=== PATIENT | male | born 1980 | race Caucasian/White ===

== ENCOUNTER 2023-10-04 11:49 | Outpatient (AMB) | payer OTHER, SELFPAY ==
--- NOTE | 2023-10-04 13:16 | MHC.OFFWIV ---
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 Patient had cough congestion x2 weeks which had migrated upwards now has purulent nasal discharge sinus pressure and facial pain. Review of Systems ENT Reports nasal congestion and Reports nasal discharge Physical Exam Vital Signs: Last Vital Signs Temp 98.2 F 10/04/23 13:19 Pulse 70 10/04/23 13:19 BP 120/70 10/04/23 13:19 Pulse Ox 98 10/04/23 13:19 Oxygen Delivery Method Room Air 10/04/23 13:19 BMI result Body Mass Index 24.6 Const General: cooperative, healthy appearing, no acute distress and alert Orientation/consciousness: patient oriented x3 Limitations: no limitations HEENT Other: TTP over the front left maxillary sinus Head: Yes normal to inspection Ears: hearing grossly normal bilaterally General nose exam: Normal external nose present Resp Effort & Inspection: normal respiratory effort and able to speak in complete sentences Cardio Rate: regular rate Skin General skin exam: no rashes or lesions noted Neuro General: patient oriented x3 Extrem General: Yes normal to inspection Assessment & Plan Assessment & Plan (1) Sinus infection: Code(s): J32.9 - Chronic sinusitis, unspecified Qualifiers: Sinusitis location: maxillary Chronicity: acute Recurrence: non-recurrent Qualified Code(s): J01.00 - Acute maxillary sinusitis, unspecified Plan: Signs and symptoms consistent with sinus infection will prescribe Augmentin for 10 days. Discharge instructions, follow up and treatment are discussed with patient in my usual fashion. Alternatives in treatment are also discussed. The patient will return for worsening symptoms or as needed. Advised that any labs/imaging ordered will be followed up on and contact made if further treatment needed. Counseled that patient's condition may require further evaluation and/or treatment. Symptoms of concern for worsening disorder discussed in detail in my customary manner. Patient does verbalize understanding of the plan, there are no apparent barriers to communication. The patient is given the opportunity to ask questions and have them answered to his/her satisfaction Medications: New amoxicillin-pot clavulanate 875-125 mg 1 tab PO BID 20 tabs 0RF 10 days Coding Level of Care Code New Pt Level 3 (83581) Diagnoses Acute non-recurrent maxillary sinusitis J01.00 Sinusitis location: maxillary Chronicity: acute Recurrence: non-recurrent
[2023-10-04 13:19] VITALS: BP 120/70; PULSE 70; TEMP 36.8; O2SAT 98; BMI 24.6
== END 2023-10-04 13:43 | disposition home or self-care (01) ==
PROVIDERS: PCP Internal Medicine; Visit Provider Physician Assistant
DX: J01.00 Acute maxillary sinusitis, unspecified (principal)
CPT/HCPCS: 99203

== ENCOUNTER 2023-11-20 12:24 | Outpatient (AMB) | payer OTHER, SELFPAY ==
[2023-11-20 12:35] VITALS: BP 124/90; PULSE 88; O2SAT 100; BMI 24.6
--- NOTE | 2023-11-20 12:35 | MHC.PC.OV ---
Vital Signs 11/20/23 12:35 Height 6 ft 6 in Weight 213 lb BMI 24.6 BP 124/90 H Blood Pressure Location Rt brachial Position Sitting Pulse 88 Pulse Source Pulse Oximeter Pulse Oximetry (%) 100 Oxygen Delivery Method Room Air Intake Visit Reasons: New patient PE Intake Note: Pt is here today as a New Patient/PE Allergies No Known Allergies Allergy (Unverified 11/20/23 12:58) Medication List - Last Reconciled 11/20/23 by KASSANDRA Gilbert No Known Home Meds Tobacco use date assessed: 11/20/23 Dental Screening Dental Screen Date: 11/20/23 Did you have a dental visit in the last 12 months?: Yes Did you have a dental problem in the last 6 months where you did not have access to dental care?: Yes Was dental information given to patient?: Patient has dentist HPI HPI Comments History of Present Illness Details Patient is a 42-year-old male here to establish care and have his physical exam. He has paperwork to be filled out so that he can take care of his mother who has Alzheimer's disease that is progressing. In addition to the physical patient also needs lab for T spot. Patient has a past medical history significant for anxiety/depression, and gastrointestinal reflux disease. He states that over the past 5 year with his mother's health issues in with COVID, he lost his job, he has felt an increase in anxiety and depression. He will meet with our in office mental health liaison to connect him with a therapist. He denies SI/HI. His GERD is now under control. He states he lost about 20 lb in his GERD resolved after that. He is up-to-date in his immunizations. Not getting this year's flu or COVID booster. Patient also states that he has a medical history of lower back pain x5 years, which has accompanied intermittent left foot tingling. Patient states that he has felt this intermittently over the past 5 year, but states he feels like incidences of tingling and numbness are increasing. Denies any trauma to the area or to his lower back. Denies hearing any cracking or popping. Denies saddle numbness. Patient also states that he is having post void dribbling after going to the bathroom. He states he has noticed over the past several month that got worse. He has no family history of prostate issues. Has not started any new medications. [facility] Medical History Fistula GERD (gastroesophageal reflux disease) Surgical History History of hip surgery Family History Mother Diabetes type 2, controlled Alzheimer's dementia Social History Housing: House e-Cigarette/Vaping Use: Currently Using (nicotine ) Substance Use Type: Marijuana service: No Current occupational status: employed Cognitive needs: No Hearing needs: No Vision needs: No Questionnaire PHQ-9 Over the last 2 weeks, how often have you been bothered by any of the following problems? 1. Little interest or pleasure in doing things: several days 2. Feeling down, depressed, or hopeless: several days 3. Trouble falling or staying asleep, or sleeping too much: several days 4. Feeling tired or having little energy: more than half the days 5. Poor appetite or overeating: not at all 6. Feeling bad about yourself - or that you are a failure or have let yourself or your family down: several days 7. Trouble concentrating on things, such as reading the newspaper or watching television: several days 8. Moving or speaking so slowly that other people could have noticed. Or the opposite - being so fidgety or restless that you have been moving around a lot more than usual: several days 9. Thoughts that you would be better off or of hurting yourself in some way: not at all Total score: 8 Depression Screening Interpretation: Negative Depression Screening Done: Yes [id number] - PHQ-9 Billing: Yes Source: Developed by Drs. Taurus Bishop, Angeles Azar, Wisam Pedraza and colleagues, with an educational sherine from [employer]. Thrive Questionnaire Date Thrive assessed: 11/20/23 I am a: Patient What is your living situation today?: I have a steady place to live Within the past 12 months, did the food you bought not last and you didn't have the money to get more?: Never true Within the past 12 months, did you worry whether your food would run out before you got money to buy more?: Never true Do you have trouble paying for medicines?: No Do you have trouble getting transportation to medical appointments?: No Do you have trouble paying your heating and electricity bill?: No Do you have trouble taking care of your child, family member or friend?: No Do you have trouble with day-to-day activities such as bathing, preparing meals, shopping, managing finances, etc.?: No Are you currently unemployed and looking for a job?: Yes Are you interested in more education?: Yes THRIVE Score: 0 AUDIT C Alcohol Use Questionnaire (AUDIT-C) 1. How often do you have a drink containing alcohol?: Monthly or less 2. How many drinks containing alcohol do you have on a typical day when you are drinking?: 1 or 2 3. How often do you have six or more drinks on one occasion?: Never Total Score: 1 CHARLOTTE-7 AMB Questionnaire CHARLOTTE-7 Date CHARLOTTE - 7 assessed: 11/20/23 Feeling nervous, anxious, or on edge: 2 = More than half the days Not being able to stop or control worryin = More than half the days Worrying too much about different things: 2 = More than half the days Trouble relaxin = More than half the days Being so restless that it is hard to sit still: 0 = Not at all Becoming easily annoyed or irritable: 2 = More than half the days Feeling afraid as if something awful might happen: 0 = Not at all Total CHARLOTTE-7 score (0-4 normal; 5-9 mild; 10-14 moderate; 15-21 severe): 10 Source: Developed by Drs. Taurus Bishop, Angeles Azar, Wisam Pedraza and colleagues, with an educational sherine from [employer]. CHARLOTTE-7 Assessment Billing CHARLOTTE-7 Assessment Tool: CHARLOTTE-7 Assessment 27183 Review of Systems Const Details: Constitutional : No Weight loss, No Fever, No Chills, No Fatigue, No Malaise ENT/Mouth : No sore throat, No Rhinorrhea. No ear fullness or pain. Eyes: No Eye Pain, No Swelling, No Redness, No change in vision. Cardiovascular : No Chest Pain, No SOB, No Dyspnea on Exertion, No Orthopnea, No Edema, No Palpitations Respiratory : No Cough, No Sputum, No Wheezing Gastrointestinal : No Nausea, No Vomiting, No Diarrhea, No Constipation, No abdominal Pain, No Hematochezia, No Melena Genitourinary : Admits occasional post void dribble, No Urinary Frequency, No Hematuria, Musculoskeletal : Admits intermittent lower back pain. Skin : No Skin Lesions, No rash Neuro : No Weakness, Admits intermittent numbness of left foot, No Dizziness, No Headache Psych : Admits some Anxiety/Panic, No Depression Heme/Lymph: No Bruising, No Bleeding,No Lymphadenopathy Endocrine : No Polyuria, No Polydipsia All other systems reviewed and are negative Physical exam (Primary Care) Vital Signs: Last Vital Signs Pulse 88 11/20/23 12:35 BP 124/90 H 11/20/23 12:35 Pulse Ox 100 11/20/23 12:35 Oxygen Delivery Method Room Air 11/20/23 12:35 Care Plan Goal for BP management: Vital signs reviewed and stable. BMI result Body Mass Index 24.6 Tobacco/Smoking Status: Tobacco use Status Tobacco use date assessed 11/20/23 11/20/23 12:37 e-Cigarette/Vaping Use Currently Using (nicotine ) 11/20/23 13:06 PHQ-9: PHQ-9 Score PHQ-9: Total score 8 11/20/23 13:58 Depression Screening Interpretation: Negative Thrive Assessment: Date of Thrive Assessment Date Thrive assessed 11/20/23 11/20/23 12:50 Const General: cooperative and no acute distress Orientation/consciousness: patient oriented x3 Limitations: no limitations [facility] Head: Yes normal to inspection, Yes normocephalic and Yes atraumatic Face and sinus: Yes normal facial exam Mouth: Normal oral and palatal mucosa present and tongue normal Eyes General: appearance normal, both eyes and all related structures Pupils: Equal, round and reactive pupils present EOM: EOMs intact bilaterally Direct Ophthalmoscopy: normal light reflex and no photophobia Neck Neck: Yes normal visual inspection, Yes full ROM and Yes no lymphadenopathy Thyroid: Thyroid normal Lymphatic: no lymphadenopathy noted Chest Chest palpation & inspection: normal inspection of the chest Resp Auscultation: clear to auscultation bilaterally Cardio Rate: regular rate Rhythm: regular rhythm Heart sounds: S1 normal heart sound present and S2 normal heart sound present GI Inspection: Yes normal to inspection Percussion: Yes normal to percussion Auscultation: normal bowel sounds General: Yes no CVA tenderness Back/Spine/Pelvis Back: no CVA tenderness Thoracic/Lumbar Spine: other (No point tenderness, no obvious deformity. Limited range of motion w/rotat) Skin General skin exam: no rashes or lesions noted Neuro General: patient oriented x3 Cranial nerves: Yes CN's II-XII intact bilaterally and Yes Equal, round and reactive pupils present Cognition (Neuro): normal cognition Extrem General: Yes normal to inspection Psych Affect: normal affect Thought process: Normal thought process present Thought content: Normal thought content present Insight: Good insight present (Psych) Judgement: Good judgement present (Psych) Results Reviewed Results Reviewed: Will call patient with lab results. Assessment and Plan Assessment & Plan (1) Encounter for routine adult physical exam with abnormal findings: Comment: Will order fasting labs, and T spot. Will get back to patient with lab results. Code(s): Z00.01 - Encounter for general adult medical examination with abnormal findings (2) Post-void dribbling: Comment: Will draw a PSA. Patient instructed to avoid bladder agitated fluids like those containing high amounts of caffeine or alcohol Code(s): N39.43 - Post-void dribbling (3) Tingling sensation: Comment: Will order x-ray of lower back, will order EMG to test nerve conduction of left lower extremity. Code(s): R20.2 - Paresthesia of skin Plan: Will follow-up with results. Patient will book physical in 1 year. Plan Take your medications as prescribed. If you were prescribed antibiotics today, it is important that you take your medication to their entirety, do not skip any doses, do not finish them early. Follow-up with your primary care provider this week. Return to the emergency department with new or worsening symptoms. Such as fevers, chills, chest pain, shortness of breath, nausea, vomiting, dizziness, headache, vision changes, lethargy In case of emergency call 911 Orders: Orders Comprehensive Met. Panel Today Z91.89 - Other specified personal risk factors, not elsewhere classified PSA,Total (Free>4and<10) Today N39.43 - Post-void dribbling TSH reflex Free T4 Today Z13.29 - Encounter for screening for other suspected endocrine disorder Vitamin B12 Today Z13.21 - Encounter for screening for nutritional disorder T Spot TB Today Z11.1 - Encounter for screening for respiratory tuberculosis Complete Blood Count Auto Diff Today Z13.0 - Encounter for screening for diseases of the blood and blood-forming organs and certain disorders involving the immune mechanism Lipid Panel Today Z13.220 - Encounter for screening for lipoid disorders Vitamin D 25-OH (D2 and D3) Today Z13.21 - Encounter for screening for nutritional disorder UA CC w/rflx Micro + Cult Today N39.43 - Post-void dribbling Vitamin B6 Today Z13.21 - Encounter for screening for nutritional disorder NE electromyogram (EMG) 11/20/23 R20.2 - Paresthesia of skin XR lumbar spine 2-3V Today R20.2 - Paresthesia of skin Review Flu Vaccine not done: patient reason Coding Level of Care Code New Pt Level 4 (40988) Diagnoses Encounter for routine adult physical exam with abnormal findings Z00.01 Post-void dribbling N39.43 Tingling sensation R20.2 Additional Codes CHARLOTTE-7 Assessment Billing - CHARLOTTE-7 Assessment Tool: CHARLOTTE-7 Assessment [id number] ([id number]) Time Spent (min) 45
== END 2023-11-20 16:54 | disposition home or self-care (01) ==
PROVIDERS: PCP Internal Medicine; Visit Provider Nurse Practitioner Primary Care
DX: Z00.00 Encounter for general adult medical examination without abnormal findings (principal); N39.43 Post-void dribbling; R20.2 Paresthesia of skin
CPT/HCPCS: 99396

== ENCOUNTER 2023-11-21 08:39 | Outpatient (REF) | payer OTHER, SELFPAY ==
--- NOTE | ~2023-11-21 | XR_ITS ---
EXAMINATION: XR LUMBOSACRAL SPINE CLINICAL INFORMATION: Paresthesias COMPARISON: None available. TECHNIQUE: Three views of the lumbosacral spine. 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 No acute fracture or subluxation. There are varying degrees of multilevel degenerative disc space narrowing and vertebral osteophyte formation. Findings include moderate discovertebral degenerative change at L3-L4, L4-5 and L5-S1. There appears to be left-sided facet arthropathy at L4-5 and L5-S1. There is mild degenerative subarticular sclerosis at left sacroiliac joint. No sacral fracture or sacroiliitis. Soft tissues are unremarkable. 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 * No acute fracture or malalignment.
[2023-11-21 11:31] LABS: Appearance Urine Clear; Color Urine Yellow; Glucose Urine UA Negative (Negative); Leukocyte Esterase Urine Negative (Negative); Nitrite Urine Negative (Negative); Specific Gravity - Urine 1.025 (1.005-1.025); Urine Blood Negative (Negative); Urine Ketones Negative (Negative); Urine Protein Negative (Neg-Trace)
[2023-11-21 11:42] LABS: MANUAL DIFF FLAG NO
[2023-11-21 12:06] LABS: Basophils Percent Auto 0.6 % (0-2); Eosinophils Absolute Auto 0.1 X10*3/uL (0.0-0.4); Eosinophils Percent Auto 2.8 % (0-4); Hemoglobin 16.3 g/dl (14.0-18.0); Imm Gran Abs Auto 0.01 X10*3/uL (0.00-0.03); Imm Gran Pct Auto 0.2 % (0.0-0.4); Lymphocytes Absolute Auto 1.4 X10*3/uL (1.2-4.9); Lymphocytes Percent Auto 28.3 % (20-40); Mean Corpuscular Hemoglobin 31.7 pg (27.0-33.0); Mean Corpuscular Volume 93.2 fL (80.0-98.0); Monocytes Absolute Auto 0.4 X10*3/uL (0.1-1.2); Monocytes Percent Auto 7.1 % (2-11); Neutrophils Absolute Auto 3.1 x10*3/uL (2.0-8.3); Platelet Count 297 X10*3/uL (160-400); Red Blood Count 5.15 X10*6/uL (4.60-5.80); Red Cell Distribution Width 12.2 % (11.0-16.0); White Blood Count 5.1 X10*3/uL (4.8-10.8)
[2023-11-21 12:26] LABS: Alanine Aminotransferase 21 U/L (0-40); Albumin Level 4.5 g/dL (3.5-5.0); Alkaline Phosphatase 44 U/L (39-117); Anion Gap 13 (12-20); Aspartate Amino Transferase 17 U/L (5-37); Blood Urea Nitrogen 21 mg/dL (9-16); Calcium 9.6 mg/dL (8.4-10.2); Carbon Dioxide 27 mmol/L (22-29); Chloride 104 mmol/L (96-108); Cholesterol 200 mg/dL (<200); Estimated Glomerular Filt Rate > 60; Glucose Random 101 mg/dL (60-115); HDL Cholesterol 53 mg/dL (>40); LDL Cholesterol Calculated 130 mg/dL (<100); Potassium 4.2 mmol/L (3.3-5.1); Sodium 140 mmol/L (135-145); Total Protein 7.5 g/dL (6.5-8.0); Triglycerides 89 mg/dL (<150)
[2023-11-21 12:30] LABS: PSA,Total (Free>4and<10) 0.53 ng/mL (0.00-4.00)
[2023-11-21 12:32] LABS: Vitamin B12 707 pg/mL (200-900)
[2023-11-21 12:44] LABS: TSH reflex Free T4 0.89 uIU/mL (0.32-4.0)
[2023-11-24 12:38] LABS: TS Negative Control Passed; TS Panel A 0; TS Panel B 0; TS Positive Control Passed; TSpotTB Negative (Negative)
[2023-11-25 14:30] LABS: Vitamin D 25-OH, D2 <4 ng/mL; Vitamin D 25-OH, D3 33 ng/mL; Vitamin D 25-OH, Total 33 ng/mL (30-100)
[2023-11-27 17:15] LABS: Vitamin B6 20.4 ng/mL (2.1-21.7)
== END 2023-11-21 08:40 | disposition home or self-care (01) ==
LOC: HO.HMGCX 08:39
PROVIDERS: PCP Nurse Practitioner Primary Care; Visit Provider Nurse Practitioner Primary Care
DX: R20.2 Paresthesia of skin (principal); N39.43 Post-void dribbling; Z13.21 Encounter for screening for nutritional disorder; Z13.29 Encounter for screening for other suspected endocrine disorder; Z11.1 Encounter for screening for respiratory tuberculosis; Z13.220 Encounter for screening for lipoid disorders; Z91.89 Other specified personal risk factors, not elsewhere classified; Z13.0 Encounter for screening for diseases of the blood and blood-forming organs and certain disorders involving the immune mechanism
CPT/HCPCS: 36415; 72100; 80053; 80061; 81003; 82306; 82607; 84153; 84207; 84443; 85025; 86481

== ENCOUNTER 2023-12-04 09:45 | Outpatient (REF) | payer OTHER, SELFPAY ==
--- NOTE | 2023-12-04 09:50 | EMG_ITS ---
Left tibial and peroneal motor studies were performed. Left superficial peroneal and sural sensory studies were performed. Tibial H-reflex was obtained, and needle examination was performed. 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 Formal neurological consultation is recommended. MD MARISOL Gerber/KI / [id number]
== END 2023-12-04 09:46 | disposition home or self-care (01) ==
LOC: HO.NEURO 09:45
PROVIDERS: PCP Nurse Practitioner Primary Care; Visit Provider Nurse Practitioner Primary Care
DX: R20.2 Paresthesia of skin (principal)
CPT/HCPCS: 95886; 95909

== ENCOUNTER 2023-12-31 11:31 | Outpatient (AMB) | payer OTHER, SELFPAY ==
--- NOTE | 2023-12-31 11:35 | MHC.PC.OV ---
Vital Signs 12/31/23 11:37 12/31/23 12:12 Height 6 ft 6 in Weight 214 lb 4 oz BMI 24.8 BP 100/58 L 120/84 Blood Pressure Location Rt brachial Rt brachial Pulse 68 Pulse Source Pulse Oximeter Pulse Oximetry (%) 99 Oxygen Delivery Method Room Air Intake Visit Reasons: Follow up Intake Note: Pt is here to follow up for lab results and is trying to quit smoking Allergies No Known Allergies Allergy (Unverified 12/31/23 12:09) Medication List - Last Reconciled 12/31/23 by KASSANDRA Gilbert varenicline (Chantix Starting Month Box) PO PER PKG DIR Tobacco use date assessed: 12/31/23 Dental Screening Dental Screen Date: 12/31/23 Did you have a dental visit in the last 12 months?: Yes Did you have a dental problem in the last 6 months where you did not have access to dental care?: No Was dental information given to patient?: Patient has dentist HPI HPI Comments History of Present Illness Details Patient is a 43-year-old male in for smoking cessation. The patient has established care with community navigator for smoking cessation. Patient has history of using Chantix with good effect for quitting smoking the past, would like to try Chantix again. Patient has been counseled on side effects of these medications specifically psychological side effects. Patient denies SI/HI. PFSH Medical History Fistula GERD (gastroesophageal reflux disease) Surgical History History of hip surgery Family History Mother Diabetes type 2, controlled Alzheimer's dementia Social History Housing: House Patient Tobacco Use Status: Current someday Tobacco user Tobacco use type: Cigarette e-Cigarette/Vaping Use: Currently Using (nicotine ) Substance Use Type: Marijuana service: No Current occupational status: employed Cognitive needs: No Hearing needs: No Vision needs: No Questionnaire PHQ-9 Over the last 2 weeks, how often have you been bothered by any of the following problems? 1. Little interest or pleasure in doing things: not at all 2. Feeling down, depressed, or hopeless: several days 3. Trouble falling or staying asleep, or sleeping too much: not at all 4. Feeling tired or having little energy: several days 5. Poor appetite or overeating: several days 6. Feeling bad about yourself - or that you are a failure or have let yourself or your family down: not at all 7. Trouble concentrating on things, such as reading the newspaper or watching television: several days 8. Moving or speaking so slowly that other people could have noticed. Or the opposite - being so fidgety or restless that you have been moving around a lot more than usual: several days 9. Thoughts that you would be better off or of hurting yourself in some way: not at all Total score: 5 Depression Screening Interpretation: Negative Depression Screening Done: Yes 19662 - PHQ-9 Billing: Yes Source: Developed by Drs. Taurus Bishop, Angeles Azar, Wisam Pedraza and colleagues, with an educational sherine from [employer]. Thrive Questionnaire Date Thrive assessed: 11/20/23 CHARLOTTE-7 AMB Questionnaire CHARLOTTE-7 Date CHARLOTTE - 7 assessed: 11/20/23 Feeling nervous, anxious, or on edge: 1 = Several days Not being able to stop or control worryin = More than half the days Worrying too much about different things: 1 = Several days Trouble relaxin = Several days Being so restless that it is hard to sit still: 0 = Not at all Becoming easily annoyed or irritable: 1 = Several days Feeling afraid as if something awful might happen: 1 = Several days Total CHARLOTTE-7 score (0-4 normal; 5-9 mild; 10-14 moderate; 15-21 severe): 7 Source: Developed by Drs. Taurus Bishop, Angeles Azar, Wisam Pedraza and colleagues, with an educational sherine from [employer]. CHARLOTTE-7 Assessment Billing CHARLOTTE-7 Assessment Tool: CHARLOTTE-7 Assessment 80587 Review of Systems Const Details: Constitutional : No Weight loss, No Fever, No Chills, No Fatigue, No Malaise Cardiovascular : No Chest Pain, No SOB, No Dyspnea on Exertion, No Orthopnea, No Edema, No Palpitations Respiratory : No Cough, No Sputum, No Wheezing Gastrointestinal : No Nausea, No Vomiting, No Diarrhea, No Constipation, No abdominal Pain, No Hematochezia, No Melena Musculoskeletal : Admits lower back pain. Skin : No Skin Lesions, No rash Neuro : Patient admits increasing numbness in extremities bilaterally. Psych : No Anxiety/Panic, No Depression Heme/Lymph: No Bruising, No Bleeding,No Lymphadenopathy Endocrine : No Polyuria, No Polydipsia All other systems reviewed and are negative Physical exam (Primary Care) Vital Signs: Last Vital Signs Pulse 68 12/31/23 11:37 BP 100/58 L 12/31/23 11:37 Pulse Ox 99 12/31/23 11:37 Oxygen Delivery Method Room Air 12/31/23 11:37 BMI result Body Mass Index 24.8 Tobacco/Smoking Status: Tobacco use Status Tobacco use date assessed 12/31/23 12/31/23 11:41 Patient Tobacco Use Status Current someday Tobacco 12/31/23 11:41 Tobacco use type Cigarette 12/31/23 11:41 e-Cigarette/Vaping Use Currently Using (nicotine ) 12/31/23 11:36 Depression Screening Interpretation: Negative Thrive Assessment: Date of Thrive Assessment Date Thrive assessed 11/20/23 12/31/23 11:36 Const Other: Appearance: Alert.? Oriented X3.? No acute distress.? Head: Normocephalic, atraumatic. Neck: Normal inspection.? Neck supple.? CVS: Normal heart rate and rhythm.? Pulses normal.? Respiratory: No respiratory distress.? Breath sounds normal.? Neuro: Oriented X 3.?+sensory deficit lower extremities bilaterally. CN 2-12 intact Results Reviewed Results Reviewed: Sodium 140 135-145 mmol/L Potassium 4.2 3.3-5.1 mmol/L CL 104 96-108 mmol/L CO2 27 22-29 mmol/L Gap 13 12-20 BUN 21 H 9-16 mg/dL Creat 1.02 0.5-1.4 mg/dL EGFR > 60 NOTE: For -[place] individuals, multiply the result by 1.210. Chronic Kidney Disease: Estimated GFR < 60 mL/min/1.73m2 Severe Kidney Disease: Estimated GFR < 15 mL/min/1.73m2 Glucose, Random 101 60-115 mg/dL CA 9.6 8.4-10.2 mg/dL Total Bili 1.0 0.0-1.0 mg/dL AST (GOT) 17 5-37 U/L ALT (GPT) 21 0-40 U/L Protein, Total 7.5 6.5-8.0 g/dL Alb 4.5 3.5-5.0 g/dL Triglyceride 89 <150 mg/dL Desirable Triglyceride: less than 150 mg/dL Borderline High Triglyceride 150-199 mg/dL High Triglyceride: 200-499 mg/dL Very High Triglyceride: greater than or equal to 5OO mg/dL Cholesterol 200 H <200 mg/dL Desirable Cholesterol: less than 200 mg/dL Borderline High Cholesterol: 200-239 mg/dL High Cholesterol: greater than 239 mg/dL LDL Calculated 130 H <100 mg/dL Desirable LDL: less than 100 mg/dL Near Optimal/Above Optimal LDL: 110-129 mg/dL Borderline High LDL: 130-159 mg/dL High LDL: 160-189 mg/dL Very High LDL: greater than or equal to 190 mg/dL HDL 53 >40 mg/dL Desirable HDL: greater than 40 mg/dL Note: This HDL assay may give artificially low results in patients with liver disease. Alk Phos 44 39-117 U/L TSH 0.89 0.32-4.0 uIU/mL Assessment and Plan Assessment & Plan (1) Smoking addiction: Comment: Patient would like to start Chantix today. Patient has history of using Chantix with good success in the past. He has been educated on side effects of these medications. Will follow-up in 1 month. Code(s): F17.200 - Nicotine dependence, unspecified, uncomplicated Plan: Take your medications as prescribed. If you were prescribed antibiotics today, it is important that you take your medication to their entirety, do not skip any doses, do not finish them early. Follow-up with your primary care provider this week. Return to the emergency department with new or worsening symptoms. Such as fevers, chills, chest pain, shortness of breath, nausea, vomiting, dizziness, headache, vision changes, lethargy In case of emergency call 911 (2) Tingling sensation: Comment: Patient had x-ray of lower back. Has significant tingling down lower extremities. Has significant curvature of spine. Will order MRI. Code(s): R20.2 - Paresthesia of skin Plan Follow-up in 1 month Coding Level of Care Code Est Pt Level 3 (01084) Diagnoses Smoking addiction F17.200 Tingling sensation R20.2 Additional Codes CHARLOTTE-7 Assessment Billing - CHARLOTTE-7 Assessment Tool: CHARLOTTE-7 Assessment 53443 ([id number])
[2023-12-31 11:37] VITALS: BP 100/58; PULSE 68; O2SAT 99; BMI 24.8
[2023-12-31 12:12] VITALS: BP 120/84
== END 2023-12-31 14:41 | disposition home or self-care (01) ==
PROVIDERS: PCP Nurse Practitioner Primary Care; Visit Provider Nurse Practitioner Primary Care
DX: R20.2 Paresthesia of skin (principal); F17.210 Nicotine dependence, cigarettes, uncomplicated
CPT/HCPCS: 99213

== ENCOUNTER 2024-02-04 09:31 | Outpatient (AMB) | payer OTHER, SELFPAY ==
--- NOTE | 2024-02-04 09:36 | MHC.PC.OV ---
Vital Signs 02/04/24 09:38 Height 6 ft 6 in Weight 222 lb 2 oz BMI 25.7 BP 116/70 Blood Pressure Location Lt brachial Position Sitting Pulse 55 Pulse Source Pulse Oximeter Pulse Oximetry (%) 98 Oxygen Delivery Method Room Air Intake Visit Reasons: chantix Intake Note: pt is here for a 1 month follow up after starting chantix Allergies No Known Allergies Allergy (Unverified 02/04/24 09:59) Medication List - Last Reconciled 02/04/24 by KASSANDRA Gilbert No Known Home Meds Tobacco use date assessed: 12/31/23 Dental Screening Dental Screen Date: 02/04/24 Did you have a dental visit in the last 12 months?: Yes Did you have a dental problem in the last 6 months where you did not have access to dental care?: No Was dental information given to patient?: Patient has dentist HPI HPI Comments History of Present Illness Details Patient is a 43-year-old male in for 1 month follow-up after starting Chantix for smoking cessation. Patient states that he is completely stop smoking cigarettes, finish the starter box of Chantix 3 days prior to arrival, states that he is not interested in continuing the Chantix at this time. He feels confident that he will continue not smoking at this time. Denies SI/HI. Denies insomnia. Patient does say that his seasonal allergies have gotten worse over the past month. States that he has postnasal drip that is worse in the morning. Has occasional scratchy throat. Also states that he has ear fullness. Denies any hearing changes. [facility] Medical History (Updated 02/04/24 @ 10:27 by KASSANDRA Gilbert) Fistula GERD (gastroesophageal reflux disease) Surgical History History of hip surgery Family History Mother Diabetes type 2, controlled Alzheimer's dementia Social History Housing: House Patient Tobacco Use Status: Former Tobacco user Tobacco use type: Cigarette e-Cigarette/Vaping Use: Former Use (nicotine ) Second Hand Smoke Exposure: No Substance Use Type: Marijuana service: No Current occupational status: employed Cognitive needs: No Hearing needs: No Vision needs: No Questionnaire PHQ-9 Over the last 2 weeks, how often have you been bothered by any of the following problems? 86949 - PHQ-9 Billing: Patient declined-do not bill Source: Developed by Drs. Taurus Bishop, Angeles Azar, Wisam Pedraza and colleagues, with an educational sherine from [employer]. Thrive Questionnaire Date Thrive assessed: 11/20/23 CHARLOTTE-7 AMB Questionnaire CHARLOTTE-7 Date CHARLOTTE - 7 assessed: 11/20/23 Source: Developed by Drs. Taurus Bishop, Angeles Azar, Wisam Pedraza and colleagues, with an educational sherine from [employer]. CHARLOTTE-7 Assessment Billing CHARLOTTE-7 Assessment Tool: pt declined-do not bill Review of Systems Const All systems reviewed & are unremarkable except as noted in HPI and below Physical exam (Primary Care) Vital Signs: Last Vital Signs Pulse 55 02/04/24 09:38 BP 116/70 02/04/24 09:38 Pulse Ox 98 02/04/24 09:38 Oxygen Delivery Method Room Air 02/04/24 09:38 Care Plan Goal for BP management: Vital signs reviewed stable. BMI result Body Mass Index 25.7 Tobacco/Smoking Status: Tobacco use Status Tobacco use date assessed 12/31/23 02/04/24 09:36 Patient Tobacco Use Status Former Tobacco user 02/04/24 09:43 Tobacco use type Cigarette 02/04/24 09:36 e-Cigarette/Vaping Use Former Use (nicotine ) 02/04/24 09:43 Relapse Prevention: discussed dietary, exercise and/or lifestyle changes Thrive Assessment: Date of Thrive Assessment Date Thrive assessed 11/20/23 02/04/24 09:36 Const Other: Appearance: Alert.? Oriented X3.? No acute distress.? Head: Normocephalic, atraumatic. Eyes: Pupils equal, round and reactive to light.? ENT: +Post nasal drip. No nasal discharge. TM intact and pearly dewey. CVS: Normal heart rate and rhythm.? Pulses normal.? Respiratory: No respiratory distress.? Breath sounds normal.? Neuro: Oriented X 3.? No motor deficit.? No sensory deficit. CN 2-12 intact Assessment and Plan Assessment & Plan (1) Seasonal allergic rhinitis: Comment: Patient will start on cetirizine 10 mg daily. Patient can also utilize fluticasone nasal spray before bedtime p.r.n. Code(s): J30.2 - Other seasonal allergic rhinitis Qualifiers: Allergic rhinitis trigger: unspecified Qualified Code(s): J30.2 - Other seasonal allergic rhinitis Plan: Take your medications as prescribed. If you were prescribed antibiotics today, it is important that you take your medication to their entirety, do not skip any doses, do not finish them early. Follow-up with your primary care provider this week. Return to the emergency department with new or worsening symptoms. Such as fevers, chills, chest pain, shortness of breath, nausea, vomiting, dizziness, headache, vision changes, lethargy In case of emergency call 911 Plan Patient will follow-up in 4 months Medications: New cetirizine 10 mg PO DAILY 90 tabs 0RF fluticasone propionate 50 mcg/actuation (Allergy Relief (fluticasone)) administer into each nostril 1 spray intranasal DAILY 16 grams 0RF Coding Level of Care Code Est Pt Level 3 (71016) Diagnoses Seasonal allergic rhinitis, unspecified trigger J30.2 Allergic rhinitis trigger: unspecified Time Spent (min) 25
[2024-02-04 09:38] VITALS: BP 116/70; PULSE 55; O2SAT 98; BMI 25.7
== END 2024-02-04 10:22 | disposition home or self-care (01) ==
PROVIDERS: PCP Nurse Practitioner Primary Care; Visit Provider Nurse Practitioner Primary Care
DX: J30.2 Other seasonal allergic rhinitis (principal)
CPT/HCPCS: 99213

== ENCOUNTER 2024-02-25 14:00 | Outpatient (RCR) | payer OTHER, SELFPAY ==
--- NOTE | 2024-02-02 11:05 | MHC.PT.EP ---
[facility] [place] Office [place] Office [place] Office [address] [address] [phone] F: [phone] F: [phone] F: [phone] F: [phone] Physical Therapy Plan of Care Date of Evaluation: 01/28/24 Date of Surgery: Diagnosis: low back pain Assessment: Pt is a 43 yo male who presents to PT for low back pain with some radicular symptoms. Skilled PT indicated to address hip and core weakness, teach safe exercises to improve ROM and flexibility, address LLD and postural control, help centralize symptoms. Pt in agreement with POC and is motivated to participate. Frequency and Duration: The patient will be seen 2x/week, x 4 weeks Short Term Goals: 1. In 2 weeks, patient will be able to maintain TAC with proper breathing during 20 seconds of core stabilization exercise. 2. In 2 weeks improve lumbar flexion ROM to 25%. 3. Pt will be I with phase 1 HEP in 2 weeks. Mcc Goals: 1. Pt will be able to complete low level plyometric exercises without increased low back pain, good stability noted. 2. 5/5 B hip and core all planes. 3. Pt will be able to return to unlimited working out at the gym in 4 weeks. Treatment Plan: Modalities to reduce pain, spasms and effusion. Manual therapy to restore motion and function. Therapeutic exercise to improve strength and flexibility. Neuromuscular re-education for posture and balance. Therapeutic activities to return to functional activities of daily living. Electronically signed by: Kaitlin Armstrong PT, DPT Please sign and return to therapist. Thank you for your referral.
--- NOTE | 2024-02-26 13:24 | MHC.PT.DC ---
[facility] [place] Office [place] Office [place] Office [address] [place] De Anda [address] [phone] F: [phone] F: [phone] F: [phone] F: [phone] Physical Therapy Discharge Report Diagnosis: low back pain Date of Surgery: Date of Evaluation: 01/28/24 Date of Discharge: 02/25/24 Treatments to Date: 6 Cancellations to Date: No Shows to Date: Discharge Status: Achieved Goals Improved Function Independent with HEP Discharge Summary: Trent referred to PT for lower back pain/tightness. Pt participated in 6 treatment sessions with goal to improve the muscle imbalances found on IE. Overall, patient reports reduced pain and stiffness after completing the HEP, and will continue I with goal to return to sport eventually. Thank you for this referral. Electronically signed by: Kaitlin Armstrong PT, DPT Please sign and return to therapist. Thank you for your referral.
== END 2024-02-26 13:24 | disposition home or self-care (01) ==
LOC: HO.PT 14:00
PROVIDERS: PCP Nurse Practitioner Primary Care; Visit Provider Nurse Practitioner Primary Care
DX: M54.16 Radiculopathy, lumbar region (principal)
CPT/HCPCS: 97110; 97116; 97140; 97161; 97530

== ENCOUNTER 2024-03-24 07:53 | Outpatient (AMB) | payer OTHER, SELFPAY ==
--- NOTE | 2024-03-24 07:59 | MHC.OFFVIS ---
Vital Signs 03/24/24 08:07 Height 6 ft 6 in Weight 228 lb 8 oz BMI 26.4 BP 124/70 Blood Pressure Location Lt brachial Position Sitting Pulse 79 Pulse Source Pulse Oximeter Pulse Oximetry (%) 99 Oxygen Delivery Method Room Air Intake Visit Reasons: INP: Paresthesia of skin - Confirmed Intake Note: Patient presents for Paresthesia of the skin. follow up on condition Allergies No Known Allergies Allergy (Verified 03/24/24 08:06) Medication List - Last Reconciled 03/24/24 by Radha Tomas MD cetirizine 10 mg PO DAILY fluticasone propionate 50 mcg/actuation (Allergy Relief (fluticasone)) 1 spray intranasal DAILY HPI Comments Details: 43y/o right male comes for evaluation numbness and tingling in left foot . It started 1 year ago in the dorsum of his left foot and has worsened now. he also feels discomfort which he describes as ache in his left foot. In the past 5 months he also feels similar sensations in his right foot. He nelson son and off back pain, he has h/o scoliosis. He denies weakness or neck pain. He also had a brief episode of shooting pain in his right arm but resolved. 12/20 EMG NCS- Left tibial and peroneal motor studies were performed. Left superficial peroneal and sural sensory studies were performed. Tibial H-reflex was obtained, and needle examination was performed. 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 Formal neurological consultation is recommended. [facility] Medical History (Updated 03/24/24 @ 10:29 by Radha Tomas MD) Numbness and tingling of left leg Scoliosis Fistula GERD (gastroesophageal reflux disease) Surgical History History of hip surgery Family History Mother Diabetes type 2, controlled Alzheimer's dementia Social History Housing: House Patient Tobacco Use Status: Former Tobacco user Tobacco use type: Cigarette e-Cigarette/Vaping Use: Former Use (nicotine ) Second Hand Smoke Exposure: No Substance Use Type: Marijuana service: No Current occupational status: employed Cognitive needs: No Hearing needs: No Vision needs: No Physical Exam Vital Signs: Last Vital Signs Pulse 79 03/24/24 08:07 BP 124/70 03/24/24 08:07 Pulse Ox 99 03/24/24 08:07 Oxygen Delivery Method Room Air 03/24/24 08:07 BMI result Body Mass Index 26.4 Const General: cooperative, healthy appearing and comfortable Nutritional Appearance: average body habitus Orientation/consciousness: patient oriented x3 Limitations: no limitations Eyes Pupils: Equal, round and reactive pupils present Neuro Other: decreased PP and light touch in left dorsum upto 1/3 of lower leg General: patient oriented x3, gait normal, tone normal, moves all extremities and no focal motor deficits Cranial nerves: Yes Facial sensation intact/muscles of mastication intact, Yes Equal, round and reactive pupils present, Yes Bilaterally intact EOM present, Yes Nystagmus not present, Yes Normal facial strength present, Yes Midline tongue present, Yes Symmetric palate elevation present and Yes Ability to bilaterally elevate shoulders present Cognition (Neuro): normal cognition Gait exam (Neuro): Normal gait present Motor exam (neuro): 5/5 motor strength present throughout and Normal motor muscle tone present throughout Deep tendon reflexes (DTR's): Right triceps reflex intensity grade: 2+, Left triceps reflex intensity grade: 2+, Rt Biceps (C5, C6): 2+, Left biceps reflex intensity grade: 2+, Right brachioradialis reflex intensity grade: 2+, Left brachioradialis reflex intensity grade: 2+, Right patellar reflex intensity grade: 3+, Left patellar reflex intensity grade: 3+, Right ankle reflex intensity grade: 3+ and Left ankle reflex intensity grade: 3+ Coordination: [id number] test normal Assessment & Plan Assessment & Plan (1) Numbness and tingling of left leg: Comment: EMG c/w chronic neuropathy ? he is hyperreflexic in LE Code(s): R20.0 - Anesthesia of skin; R20.2 - Paresthesia of skin Category: Medical (2) Lumbar back pain with radiculopathy affecting lower extremity: Code(s): M54.16 - Radiculopathy, lumbar region Category: Medical Plan I will reevaluate him with EMG Silvio LE I will trial him on [id number] 1-3 caps qhs and suggested ALpha lipoic acid 400mg qd Orders: Orders NE electromyogram (EMG) Today M54.16 - Radiculopathy, lumbar region, R20.2 - Paresthesia of skin NE nerve conduction velocity Today M41.9 - Scoliosis, unspecified, M54.16 - Radiculopathy, lumbar region, R20.2 - Paresthesia of skin Medications: New gabapentin 1-3 caps qhs orally bedtime; 90 caps 1RF Coding Level of Care Code New Pt Level 4 (45753) Diagnoses Numbness and tingling of left leg R20.0; R20.2 Lumbar back pain with radiculopathy affecting lower extremity M54.16
[2024-03-24 08:07] VITALS: BP 124/70; PULSE 79; O2SAT 99; BMI 26.4
== END 2024-03-24 08:41 | disposition home or self-care (01) ==
PROVIDERS: PCP Nurse Practitioner Primary Care; Visit Provider Psychiatry & Neurology Neurology
DX: R20.0 Anesthesia of skin (principal); R20.2 Paresthesia of skin; M54.16 Radiculopathy, lumbar region
CPT/HCPCS: 99204

== ENCOUNTER → 2024-03-24 07:53 | Outpatient (BNVA) | payer OTHER, SELFPAY | PROVIDERS: PCP Nurse Practitioner Primary Care; Visit Provider Psychiatry & Neurology Neurology | DX: R20.2 Paresthesia of skin (principal); R20.0 Anesthesia of skin; M54.16 Radiculopathy, lumbar region; M41.9 Scoliosis, unspecified | CPT/HCPCS: 99202 ==

== ENCOUNTER 2024-03-30 08:05 | Outpatient (REF) | payer OTHER, SELFPAY ==
--- NOTE | 2024-03-30 08:07 | EMG_ITS ---
Bilateral tibial and peroneal motor studies were performed. Bilateral superficial peroneal, sural, and median and lateral mixed plantar sensory studies were performed. Tibial H reflexes were obtained and paraspinal muscles were tested with a needle with some limb muscles. IMPRESSION: Moderate to severe, sensory and motor, chronic peripheral neuropathy with features of demyelination or axonal loss. MD MARISOL Gerber/KI / [id number]
== END 2024-03-30 08:06 | disposition home or self-care (01) ==
LOC: HO.NEURO 08:05
PROVIDERS: PCP Nurse Practitioner Primary Care; Visit Provider Psychiatry & Neurology Neurology
DX: M54.16 Radiculopathy, lumbar region (principal); M41.9 Scoliosis, unspecified; R20.2 Paresthesia of skin
CPT/HCPCS: 95886; 95913

== ENCOUNTER 2024-05-03 12:48 | Outpatient (AMB) | payer OTHER, SELFPAY ==
--- NOTE | 2024-05-03 13:03 | MHC.PC.OV ---
Vital Signs 05/03/24 13:04 Height 6 ft 6 in Weight 221 lb BMI 25.5 BP 132/84 Blood Pressure Location Rt brachial Position Sitting Pulse 99 Pulse Source Pulse Oximeter Pulse Oximetry (%) 98 Oxygen Delivery Method Room Air Intake Visit Reasons: 3-4M F/U Intake Note: pt is here for his 3-4 mo f/u Allergies No Known Allergies Allergy (Verified 05/03/24 13:19) Medication List - Last Reconciled 05/03/24 by KASSANDRA Gilbert cetirizine 10 mg PO DAILY fluticasone propionate 50 mcg/actuation (Allergy Relief (fluticasone)) 1 spray intranasal DAILY gabapentin 1-3 caps qhs orally bedtime; Tobacco use date assessed: 05/03/24 Dental Screening Dental Screen Date: 02/04/24 HPI HPI Comments History of Present Illness Details Patient is a 43-year-old male in today for a sick visit. Patient states that he hit his right elbow on a fence post while he was swinging a sledgehammer. Patient has full range of motion of affected joint, states he does have some intermittent pain that has not improved over the past 2 weeks. Utilizes ibuprofen with mild effect. Will obtain x-ray. Patient states that due to life stressors he has started to smoke cigarettes again. Has utilize Chantix in the past with good effect. Would like to restart that. Will order. patient has establish care with therapist for increased anxiety and depression. Patient denies SI/HI. [facility] Medical History Numbness and tingling of left leg Scoliosis Fistula GERD (gastroesophageal reflux disease) Surgical History History of hip surgery Family History Mother Diabetes type 2, controlled Alzheimer's dementia Social History Housing: House Patient Tobacco Use Status: Former Tobacco user Tobacco use type: Cigarette e-Cigarette/Vaping Use: Currently Using (nicotine ) Frequency of e-Cigarette/Vaping Use: daily Second Hand Smoke Exposure: No Substance Use Type: Marijuana service: No Current occupational status: employed Cognitive needs: No Hearing needs: No Vision needs: No Questionnaire Thrive Questionnaire Date Thrive assessed: 11/20/23 AUDIT C Alcohol Use Questionnaire (AUDIT-C) 1. How often do you have a drink containing alcohol?: Monthly or less 2. How many drinks containing alcohol do you have on a typical day when you are drinking?: 1 or 2 3. How often do you have six or more drinks on one occasion?: Never Total Score: 1 CHARLOTTE-7 AMB Questionnaire CHARLOTTE-7 Date CHARLOTTE - 7 assessed: 11/20/23 Source: Developed by Drs. Taurus Bishop, Angeles Azar, Wisam Pedraza and colleagues, with an educational sherine from [employer]. Review of Systems Const All systems reviewed & are unremarkable except as noted in HPI and below Physical exam (Primary Care) Vital Signs: Last Vital Signs Pulse 99 05/03/24 13:04 BP 132/84 05/03/24 13:04 Pulse Ox 98 05/03/24 13:04 Oxygen Delivery Method Room Air 05/03/24 13:04 BMI result Body Mass Index 25.5 Tobacco/Smoking Status: Tobacco use Status Tobacco use date assessed 05/03/24 05/03/24 13:08 Patient Tobacco Use Status Former Tobacco user 05/03/24 13:08 Tobacco use type Cigarette 05/03/24 13:03 e-Cigarette/Vaping Use Currently Using (nicotine ) 05/03/24 13:08 Are you ready to quit: Yes Tobacco cessation counseling provided: Yes Items discussed: Other ( Chantix) Thrive Assessment: Date of Thrive Assessment Date Thrive assessed 11/20/23 05/03/24 13:03 Const Other: Appearance: Alert.? Oriented X3.? No acute distress.? Head: Normocephalic. CVS: Normal heart rate and rhythm.? Pulses normal.? Respiratory: No respiratory distress.? Breath sounds normal.? Extremities: Scant right elbow edema and erythema. No signs of infection. Full range of motion. Neuro: Oriented X 3.? No motor deficit.? No sensory deficit. CN 2-12 intact Assessment and Plan Assessment & Plan (1) Right elbow pain: Comment: will order x-ray. Patient has been instructed to rest and ice the affected area. Will refer for to Ortho or physical therapy depending on results. Code(s): M25.521 - Pain in right elbow (2) Nicotine dependence: Comment: ED Patient will restart on Chantix. Patient denies SI / HI. Patient has utilizes medication in the past with good effect. Patient has been educated on the side effects. He has been educated on signs of worsening symptoms and when to report to the walk-in or when to present to the ED Code(s): F17.200 - Nicotine dependence, unspecified, uncomplicated Qualifiers: Nicotine product type: cigarettes Substance use status: uncomplicated Qualified Code(s): F17.210 - Nicotine dependence, cigarettes, uncomplicated Plan: follow-up in 1 month. Orders: Orders XR elbow RT 2V Today M25.521 - Pain in right elbow Medications: New varenicline (Chantix Starting Month Box) PO PER PKG DIR 53 ea 0RF Coding Level of Care Code Est Pt Level 3 (20532) Diagnoses Right elbow pain M25.521 Cigarette nicotine dependence without complication F17.210 Nicotine product type: cigarettes Substance use status: uncomplicated Time Spent (min) 25
[2024-05-03 13:04] VITALS: BP 132/84; PULSE 99; O2SAT 98; BMI 25.5
== END 2024-05-03 13:56 | disposition home or self-care (01) ==
PROVIDERS: PCP Nurse Practitioner Primary Care; Visit Provider Nurse Practitioner Primary Care
DX: M25.521 Pain in right elbow (principal); F17.210 Nicotine dependence, cigarettes, uncomplicated
CPT/HCPCS: 99213

== ENCOUNTER 2024-05-13 13:42 | Outpatient (REF) | payer OTHER, SELFPAY ==
--- NOTE | ~2024-05-13 | XR_ITS ---
EXAMINATION: XR ELBOW, RIGHT CLINICAL INFORMATION: Elbow pain COMPARISON: None available. TECHNIQUE: AP, lateral, and oblique views of the right elbow. FINDINGS: No fracture or joint effusion. Alignment is anatomic. Joint spaces are maintained. No abnormal soft tissue calcification. XR/XR elbow RT 2V IMPRESSION: No radiographic evidence of acute osseous abnormality. Study is assigned for dictation on June 03, 2024
[2024-05-13 14:02] LABS: MANUAL DIFF FLAG NO
[2024-05-13 14:52] LABS: Basophils Absolute Auto 0.1 X10*3/uL (0.0-0.2); Basophils Percent Auto 0.9 % (0-2); Eosinophils Absolute Auto 0.2 X10*3/uL (0.0-0.4); Eosinophils Percent Auto 2.7 % (0-4); Hematocrit 44.2 % (42.0-52.0); Hemoglobin 15.5 g/dl (14.0-18.0); Imm Gran Abs Auto 0.02 X10*3/uL (0.00-0.03); Imm Gran Pct Auto 0.3 % (0.0-0.4); Lymphocytes Absolute Auto 1.9 X10*3/uL (1.2-4.9); Lymphocytes Percent Auto 27.5 % (20-40); Mean Corpuscular HGB Conc 35.1 g/dl (31.0-36.0); Mean Corpuscular Hemoglobin 32.2 pg (27.0-33.0); Mean Corpuscular Volume 91.9 fL (80.0-98.0); Mean Platelet Volume 10.8 fL (9.4-12.4); Monocytes Absolute Auto 0.5 X10*3/uL (0.1-1.2); Monocytes Percent Auto 7.5 % (2-11); Neutrophils Absolute Auto 4.2 x10*3/uL (2.0-8.3); Neutrophils Percent Auto 61.1 % (45-73); Platelet Count 234 X10*3/uL (160-400); Red Blood Count 4.81 X10*6/uL (4.60-5.80); White Blood Count 6.9 X10*3/uL (4.8-10.8)
[2024-05-13 14:57] LABS: Estimated Average Glucose 97 mg/dL
[2024-05-13 15:28] LABS: Alanine Aminotransferase 16 U/L (0-40); Albumin Level 4.4 g/dL (3.5-5.0); Alkaline Phosphatase 45 U/L (39-117); Anion Gap 14 (12-20); Aspartate Amino Transferase 16 U/L (5-37); Bilirubin Total 0.7 mg/dL (0.0-1.0); Blood Urea Nitrogen 18 mg/dL (9-16); Calcium 9.6 mg/dL (8.4-10.2); Carbon Dioxide 29 mmol/L (22-29); Chloride 102 mmol/L (96-108); Estimated Glomerular Filt Rate > 60; Glucose Random 89 mg/dL (60-115); Iron 103 mcg/dL (45-160); Percent Iron Saturation 35 % (15-50); Potassium 4.9 mmol/L (3.3-5.1); Sodium 140 mmol/L (135-145); Total Iron Binding Capacity 294 mcg/dL (228-428); Unsaturated Iron Binding 191 ug/dL
[2024-05-13 15:29] LABS: Rheumatoid Factor < 13.0 IU/mL (<15.0)
[2024-05-13 15:41] LABS: Erythrocyte Sedimentation Rate 1 MM/HR (0-15)
[2024-05-13 15:49] LABS: Ferritin 288 ng/mL (20-250)
[2024-05-13 16:00] LABS: Folate 11.9 ng/mL (> or = 4.0); Vitamin B12 535 pg/mL (200-900)
[2024-05-14 23:02] LABS: CRP High Sensitivity <0.2 mg/L
[2024-05-17 22:28] LABS: Prot Elec - Albumin 4.6 g/dL (3.8-4.8); Prot Elec - Alpha1 0.2 g/dL (0.2-0.3); Prot Elec - Alpha2 0.4 g/dL (0.5-0.9); Prot Elec - Beta 1 0.4 g/dL (0.4-0.6); Prot Elec - Beta 2 0.3 g/dL (0.2-0.5); Prot Elec - Gamma 0.9 g/dL (0.8-1.7); Prot Elec - Total Protein 6.8 g/dL (6.1-8.1)
[2024-05-18 13:24] LABS: Vitamin D 25-OH, D2 <4 ng/mL; Vitamin D 25-OH, D3 32 ng/mL; Vitamin D 25-OH, Total 32 ng/mL (30-100)
[2024-05-21 09:28] LABS: Anti Nuclear Antibody Screen NEGATIVE (NEGATIVE)
== END 2024-05-13 13:43 | disposition home or self-care (01) ==
LOC: HO.XRAY 13:42
PROVIDERS: Absent Provider Nurse Practitioner Primary Care; PCP Nurse Practitioner Primary Care; Visit Provider Nurse Practitioner Family
DX: M25.521 Pain in right elbow (principal); R20.0 Anesthesia of skin; R20.2 Paresthesia of skin; G62.9 Polyneuropathy, unspecified
CPT/HCPCS: 36415; 73070; 80053; 82306; 82607; 82728; 82746; 83036; 83540; 84165; 84443; 85025; 85652; 86038; 86141; 86431

== ENCOUNTER 2024-05-17 08:38 | Outpatient (REF) | payer OTHER, SELFPAY ==
[2024-05-20 03:09] LABS: Arsenic, 24H Urine 155 mcg/L (<=80); Cadmium, 24H Urine <0.5 mcg/L (<=5.0); Lead, 24H Urine <10 mcg/L (<80); Mercury, 24H Urine <4 mcg/L (<=20)
== END 2024-05-17 08:39 | disposition home or self-care (01) ==
LOC: HO.LNP 08:38
PROVIDERS: Visit Provider Nurse Practitioner Family
DX: R20.0 Anesthesia of skin (principal); R20.2 Paresthesia of skin; G62.9 Polyneuropathy, unspecified
CPT/HCPCS: 82175; 82300; 83655; 83825

== ENCOUNTER 2024-06-21 11:50 | Outpatient (REF) | payer OTHER, SELFPAY ==
[2024-06-24 03:24] LABS: Arsenic, 24H Urine <10 mcg/L (<=80); Cadmium, 24H Urine <0.5 mcg/L (<=5.0); Lead, 24H Urine <10 mcg/L (<80); Mercury, 24H Urine <4 mcg/L (<=20)
== END 2024-06-21 11:51 | disposition home or self-care (01) ==
LOC: HO.LNP 11:50
PROVIDERS: Visit Provider Nurse Practitioner Family
DX: G62.9 Polyneuropathy, unspecified (principal); Z77.010 Contact with and (suspected) exposure to arsenic
CPT/HCPCS: 82175; 82300; 83655; 83825

== ENCOUNTER 2024-07-14 08:57 | Day surgery (SDC) | payer OTHER, SELFPAY ==
--- NOTE | ~2024-07-14 | FL_ITS ---
FLUOROSCOPIC GUIDED LUMBAR PUNCTURE INDICATION: Polyneuropathy TECHNIQUE: Risks and benefits and possible complications were discussed with the patient and the consent form was signed. Patient was placed prone on the fluoroscopy table. The back was prepped and draped in routine sterile fashion. Betadine was used as a skin antiseptic. Utilizing fluoroscopic guidance, the L3-4 interlaminar space was accessed with a 22 gauge Enrrique spinal needle and clear CSF fluid obtained. Opening pressure was 15 cm H2O. 9 cc of fluid was sent for analysis. The needle was removed without immediate complications. Total fluoroscopy time: 0.3 min FL/FL guided lumbar puncture LP IMPRESSION: Successful fluoroscopic guided lumbar puncture. This procedure was performed by Gustabo Lee PA-C and supervised by Dr. Bernard. Electronically signed by: Stephen Bernard MD 07/14/2024 01:26 PM EDT
[2024-07-14 09:32] VITALS: BMI 26.5
[2024-07-14 09:40] VITALS: BP 151/87; PULSE 69; RESP 14; TEMP 36.2; O2SAT 98
[2024-07-14 11:40] VITALS: BP 121/89; PULSE 56; RESP 16; TEMP 36.9; O2SAT 97
[2024-07-14 11:55] VITALS: BP 123/80; PULSE 52; RESP 16; O2SAT 100
[2024-07-14 11:55] LABS: CSF Appearance Clear, Colorless; CSF Tube # 2
[2024-07-14 12:10] VITALS: BP 121/76; PULSE 53; RESP 16; O2SAT 99
[2024-07-14 12:25] VITALS: BP 127/83; PULSE 58; RESP 16; TEMP 36.8; O2SAT 98
[2024-07-14 12:25] LABS: Glucose CSF 63 mg/dL; Total Protein CSF 54.7 mg/dL (15-45)
[2024-07-14 14:12] LABS: Appearance CSF CLEAR; CSF Monos 40 %; CSF Tube # 4; Color CSF COLORLESS; Lymphocytes CSF 60 %; Red Blood Cell CSF 0 MM*3; White Blood Cell CSF 2 MM*3
[2024-07-22 15:12] LABS: Hu Antibody Screen, CSF NEGATIVE (NEGATIVE)
== END 2024-07-14 12:34 | disposition home or self-care (01) ==
PROVIDERS: Physician Assistant Surgical; PCP Nurse Practitioner Primary Care; Visit Provider Psychiatry & Neurology Neurology
PROC: 009U3ZZ Drainage of Spinal Canal, Percutaneous Approach (ICD-10-PCS; CPT 62270; principal; 2024-07-14 11:00)
DX: G62.9 Polyneuropathy, unspecified (principal); R20.0 Anesthesia of skin; R20.2 Paresthesia of skin; M54.16 Radiculopathy, lumbar region; L98.8 Other specified disorders of the skin and subcutaneous tissue; M41.9 Scoliosis, unspecified; K21.9 Gastro-esophageal reflux disease without esophagitis; Z79.51 Long term (current) use of inhaled steroids; Z79.899 Other long term (current) drug therapy; Z87.891 Personal history of nicotine dependence; Z98.890 Other specified postprocedural states
CPT/HCPCS: 62328; 82945; 84157; 84166; 84181; 86255; 86256; 87015; 87070; 87205; 89051

== ENCOUNTER → 2024-07-14 11:00 | Outpatient (BNV) | payer OTHER, SELFPAY | PROVIDERS: PCP Nurse Practitioner Primary Care; Visit Provider Radiology Diagnostic Radiology | DX: G62.9 Polyneuropathy, unspecified (principal) | CPT/HCPCS: 62328 ==

== ENCOUNTER 2024-07-14 12:05 | Outpatient (REF) | payer OTHER, SELFPAY | END 2024-07-14 12:06 | disposition home or self-care (01) | LOC: HO.LAB 12:05 | PROVIDERS: Visit Provider Psychiatry & Neurology Neurology | DX: Z13.89 Encounter for screening for other disorder (principal) ==

== ENCOUNTER 2024-08-10 12:30 | Outpatient (AMB) | payer OTHER, SELFPAY ==
[2024-08-10 12:36] VITALS: BP 130/82; PULSE 63; O2SAT 98; BMI 26.8
--- NOTE | 2024-08-10 12:36 | MHC.PC.OV ---
Vital Signs 08/10/24 12:36 Height 6 ft 6 in Weight 232 lb BMI 26.8 BP 130/82 Blood Pressure Location Rt brachial Position Sitting Pulse 63 Pulse Source Pulse Oximeter Pulse Oximetry (%) 98 Oxygen Delivery Method Room Air Intake Visit Reasons: Transfer from [facility]/smoking cessation Intake Note: pt is here for transfer of care, speak about smoking cessation. Cardiograph Operator Required: No Accompanied by: Self / Same As Patient Allergies No Known Allergies Allergy (Verified 08/10/24 12:40) Medication List - Last Reconciled 08/10/24 by NAMAN Biswas bupropion HCl XL 150 mg PO DAILY cetirizine 10 mg PO DAILY fluticasone propionate 50 mcg/actuation (Allergy Relief (fluticasone)) 1 spray intranasal DAILY gabapentin 1-3 caps qhs orally bedtime; hydroxyzine HCl 25 mg PO TID Tobacco use date assessed: 05/03/24 Dental Screening Dental Screen Date: 02/04/24 HPI Transfer from [facility]/smoking cessation HPI Details pt hasnt been smoking for over 3 months. Pt does smoke marijuana. He discussed some of his anxiety/depression, has a therapist he sees regularly. Pt also has a psychiatrist. Denies any SI or HI. Pt does have stressors, though working with psych providers with these. Pt does take care of his elderly mother, who has Alzheimers. He hasnt started the buproprion yet, encouraged him to at least try it. [facility] Medical History Numbness and tingling of left leg Scoliosis Fistula GERD (gastroesophageal reflux disease) Surgical History History of hip surgery Family History Mother Diabetes type 2, controlled Alzheimer's dementia Social History Housing: House Patient Tobacco Use Status: Former Tobacco user Tobacco use type: Cigarette e-Cigarette/Vaping Use: Currently Using (nicotine ) Second Hand Smoke Exposure: No Substance Use Type: Marijuana service: No Current occupational status: employed Cognitive needs: No Hearing needs: No Vision needs: No Questionnaire PHQ-9 Over the last 2 weeks, how often have you been bothered by any of the following problems? 1. Little interest or pleasure in doing things: several days 2. Feeling down, depressed, or hopeless: several days 3. Trouble falling or staying asleep, or sleeping too much: several days 4. Feeling tired or having little energy: several days 5. Poor appetite or overeating: not at all 6. Feeling bad about yourself - or that you are a failure or have let yourself or your family down: several days 7. Trouble concentrating on things, such as reading the newspaper or watching television: not at all 8. Moving or speaking so slowly that other people could have noticed. Or the opposite - being so fidgety or restless that you have been moving around a lot more than usual: not at all 9. Thoughts that you would be better off or of hurting yourself in some way: not at all Total score: 5 Depression Screening Interpretation: Negative Depression Screening Done: Yes [id number] - PHQ-9 Billing: Yes (has a therapist and psychiatrist, denies any SI or HI) Source: Developed by Drs. Taurus Bishop, Angeles Azar, Wisam Pedraza and colleagues, with an educational sherine from [email or web address]. Thrive Questionnaire Date Thrive assessed: 08/10/24 I am a: Patient What is your living situation today?: I have a steady place to live Within the past 12 months, did the food you bought not last and you didn't have the money to get more?: I choose not to answer this question Within the past 12 months, did you worry whether your food would run out before you got money to buy more?: I choose not to answer this question Do you have trouble paying for medicines?: No Do you have trouble getting transportation to medical appointments?: No Do you have trouble paying your heating and electricity bill?: I choose not to answer this question Do you have trouble taking care of your child, family member or friend?: I choose not to answer this question Do you have trouble with day-to-day activities such as bathing, preparing meals, shopping, managing finances, etc.?: No Are you interested in more education?: Yes Please select the resources that you would like help with: Utilities Currently or been in a relationship where the following occur: No concerns reported THRIVE Score: 0 AUDIT C Alcohol Use Questionnaire (AUDIT-C) 1. How often do you have a drink containing alcohol?: Monthly or less 2. How many drinks containing alcohol do you have on a typical day when you are drinking?: 1 or 2 3. How often do you have six or more drinks on one occasion?: Never Total Score: 1 Score Reviewed/Action Taken: Yes CHARLOTTE-7 AMB Questionnaire CHARLOTTE-7 Date CHARLOTTE - 7 assessed: 08/10/24 Feeling nervous, anxious, or on edge: 1 = Several days Not being able to stop or control worryin = Several days Worrying too much about different things: 1 = Several days Trouble relaxin = Several days Being so restless that it is hard to sit still: 0 = Not at all Becoming easily annoyed or irritable: 1 = Several days Feeling afraid as if something awful might happen: 0 = Not at all Total CHARLOTTE-7 score (0-4 normal; 5-9 mild; 10-14 moderate; 15-21 severe): 5 Source: Developed by Drs. Taurus Bishop, Angeles Azar, Wisam Pedraza and colleagues, with an educational sherine from [email or web address]. CHARLOTTE-7 Assessment Billing CHARLOTTE-7 Assessment Tool: CHARLOTTE-7 Assessment 52628 Review of Systems Const Reports as per HPI Physical exam (Primary Care) Vital Signs: Last Vital Signs Pulse 63 08/10/24 12:36 BP 130/82 08/10/24 12:36 Pulse Ox 98 08/10/24 12:36 Oxygen Delivery Method Room Air 08/10/24 12:36 BMI result Body Mass Index 26.8 Tobacco/Smoking Status: Tobacco use Status Tobacco use date assessed 05/03/24 08/10/24 12:38 Patient Tobacco Use Status Former Tobacco user 08/10/24 12:38 Tobacco use type Cigarette 08/10/24 12:38 e-Cigarette/Vaping Use Currently Using (nicotine ) 08/10/24 12:38 PHQ-9: PHQ-9 Score PHQ-9: Total score 5 08/10/24 12:42 Depression Screening Interpretation: Negative Thrive Assessment: Date of Thrive Assessment Date Thrive assessed 08/10/24 08/10/24 12:42 Currently or been in a relationship where the following occur: No concerns reported Const General: cooperative Orientation/consciousness: patient oriented x3 Resp Effort & Inspection: normal respiratory effort Auscultation: clear to auscultation bilaterally Cardio Rate: regular rate Rhythm: regular rhythm Heart sounds: S1 normal heart sound present, S2 normal heart sound present and no murmurs Neuro General: patient oriented x3 Psych Appearance: grossly normal Mental Status: mental status grossly normal Speech and movement: Normal speech and movement present Affect: normal affect Attitude: cooperative Thought process: Normal thought process present Thought content: Normal thought content present Insight: Good insight present (Psych) Judgement: Good judgement present (Psych) Coding Level of Care Code New Pt Level 3 (05680) Diagnoses Anxiety with depression F41.8 Additional Codes CHARLOTTE-7 Assessment Billing - CHARLOTTE-7 Assessment Tool: CHARLOTTE-7 Assessment 53424 ([id number]) Assessment & Plan Assessment & Plan (1) Anxiety with depression: Code(s): F41.8 - Other specified anxiety disorders Category: Medical Plan The patient agreed to the use of a medical records analyst for this encounter. Scribed for KASSANDRA Urrutia-DONITA by Penny Rose medical records analyst, on 08/10/2024 at 12:45 EST. Orders: Orders Comprehensive [place]itt. Panel Fast Today F41.8 - Other specified anxiety disorders Lipid Panel Today F41.8 - Other specified anxiety disorders Complete Blood Count Auto Diff Today F41.8 - Other specified anxiety disorders TSH reflex Free T4 Today F41.8 - Other specified anxiety disorders UA CC w/rflx Micro + Cult Today F41.8 - Other specified anxiety disorders
== END 2024-08-10 13:32 | disposition home or self-care (01) ==
PROVIDERS: PCP Nurse Practitioner Primary Care; Visit Provider Nurse Practitioner Family
DX: F41.8 Other specified anxiety disorders (principal)

== ENCOUNTER → 2024-08-10 12:30 | Outpatient (BNVA) | payer OTHER, SELFPAY | PROVIDERS: PCP Nurse Practitioner Primary Care; Visit Provider Nurse Practitioner Family | DX: F41.8 Other specified anxiety disorders (principal) | CPT/HCPCS: 96127; 99202 ==

== ENCOUNTER 2024-09-01 09:30 | Outpatient (AMB) | payer OTHER, SELFPAY ==
--- NOTE | 2024-09-01 09:49 | MHC.OFFVIS ---
Vital Signs 09/01/24 09:50 Height 6 ft 6 in Weight 225 lb BMI 26.0 Intake Visit Reasons: Follow Up Intake Note: Patient presents for Patient presents for follow up Allergies No Known Allergies Allergy (Verified 09/01/24 09:53) HPI Comments Details: 43y/o right male comes for follow up numbness and tingling in left foot .EMg was c/w neuropathy demyelinating and axonal - CSF - increased protien. It started 1 year ago in the dorsum of his left foot and has worsened now. he also feels discomfort which he describes as ache in his left foot. In the past 5 months he also feels similar sensations in his right foot. He has on and off back pain, he has h/o scoliosis. He denies weakness or neck pain. He also had a brief episode of shooting pain in his right arm but resolved. 12/20 EMG NCS- Left tibial and peroneal motor studies were performed. Left superficial peroneal and sural sensory studies were performed. Tibial H-reflex was obtained, and needle examination was performed. 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 Formal neurological consultation is recommended. [facility] Medical History CIDP (chronic inflammatory demyelinating polyneuropathy) Numbness and tingling of left leg Scoliosis Fistula GERD (gastroesophageal reflux disease) Surgical History History of hip surgery Family History Mother Diabetes type 2, controlled Alzheimer's dementia Social History Housing: House Patient Tobacco Use Status: Former Tobacco user Tobacco use type: Cigarette e-Cigarette/Vaping Use: Currently Using (nicotine ) Second Hand Smoke Exposure: No Substance Use Type: Marijuana service: No Current occupational status: employed Cognitive needs: No Hearing needs: No Vision needs: No Physical Exam Vital Signs: BMI result Body Mass Index 26.0 Const General: cooperative, healthy appearing and comfortable Nutritional Appearance: average body habitus Orientation/consciousness: patient oriented x3 Limitations: no limitations Eyes Pupils: Equal, round and reactive pupils present Neuro Other: decreased PP and light touch in left dorsum upto 1/3 of lower leg General: patient oriented x3, gait normal, tone normal, moves all extremities and no focal motor deficits Cranial nerves: Yes Facial sensation intact/muscles of mastication intact, Yes Equal, round and reactive pupils present, Yes Bilaterally intact EOM present, Yes Nystagmus not present, Yes Normal facial strength present, Yes Midline tongue present, Yes Symmetric palate elevation present and Yes Ability to bilaterally elevate shoulders present Cognition (Neuro): normal cognition Gait exam (Neuro): Normal gait present Motor exam (neuro): 5/5 motor strength present throughout and Normal motor muscle tone present throughout Deep tendon reflexes (DTR's): Right triceps reflex intensity grade: 2+, Left triceps reflex intensity grade: 2+, Rt Biceps (C5, C6): 2+, Left biceps reflex intensity grade: 2+, Right brachioradialis reflex intensity grade: 2+, Left brachioradialis reflex intensity grade: 2+, Right patellar reflex intensity grade: 3+, Left patellar reflex intensity grade: 3+, Right ankle reflex intensity grade: 3+ and Left ankle reflex intensity grade: 3+ Coordination: [id number] test normal Assessment & Plan Assessment & Plan (1) CIDP (chronic inflammatory demyelinating polyneuropathy): Comment: CSF- albuminocytologic dissociation , EMG - shows neuropathy demyelinating Code(s): G61.81 - Chronic inflammatory demyelinating polyneuritis Category: Medical (2) Lumbar back pain with radiculopathy affecting lower extremity: Code(s): M54.16 - Radiculopathy, lumbar region Category: Medical Plan I will trial him on prednisone 100mg qd with omeprazole 20mg qd He will be a good candidate for treatment with ICIG [id number] 1-3 caps qhs and suggested ALpha lipoic acid 400mg qd Medications: New prednisone 50 mg PO DAILY 30 tabs 0RF omeprazole 20 mg PO DAILY 30 caps 0RF prednisone 100 mg (2 x 50 mg) PO DAILY 60 tabs 0RF Coding Level of Care Code Est Pt Level 4 (61103) Complex EM visit Add On G2211 Diagnoses CIDP (chronic inflammatory demyelinating polyneuropathy) G61.81 Lumbar back pain with radiculopathy affecting lower extremity M54.16
[2024-09-01 09:50] VITALS: BMI 26.0
== END 2024-09-01 10:15 | disposition home or self-care (01) ==
LOC: HO.HSMS 09:30
PROVIDERS: PCP Nurse Practitioner Family; Visit Provider Psychiatry & Neurology Neurology
DX: G61.81 Chronic inflammatory demyelinating polyneuritis (principal); M54.16 Radiculopathy, lumbar region
CPT/HCPCS: 99214; G2211

== ENCOUNTER → 2024-09-01 09:30 | Outpatient (BNVA) | payer OTHER, SELFPAY | PROVIDERS: PCP Nurse Practitioner Family; Visit Provider Psychiatry & Neurology Neurology | DX: G61.81 Chronic inflammatory demyelinating polyneuritis (principal); M54.16 Radiculopathy, lumbar region | CPT/HCPCS: 99212 ==

== ENCOUNTER 2024-09-09 08:22 | Outpatient (REF) | payer OTHER, SELFPAY ==
[2024-09-09 10:06] LABS: MANUAL DIFF FLAG NO
[2024-09-09 10:22] LABS: Basophils Absolute Auto 0.1 X10*3/uL (0.0-0.2); Basophils Percent Auto 0.6 % (0-2); Eosinophils Absolute Auto 0.1 X10*3/uL (0.0-0.4); Eosinophils Percent Auto 1.3 % (0-4); Hematocrit 44.6 % (42.0-52.0); Hemoglobin 15.3 g/dl (14.0-18.0); Imm Gran Abs Auto 0.02 X10*3/uL (0.00-0.03); Imm Gran Pct Auto 0.2 % (0.0-0.4); Lymphocytes Percent Auto 35.8 % (20-40); Mean Corpuscular HGB Conc 34.3 g/dl (31.0-36.0); Mean Corpuscular Hemoglobin 31.5 pg (27.0-33.0); Mean Corpuscular Volume 91.8 fL (80.0-98.0); Mean Platelet Volume 10.3 fL (9.4-12.4); Monocytes Absolute Auto 0.8 X10*3/uL (0.1-1.2); Monocytes Percent Auto 9.2 % (2-11); Neutrophils Absolute Auto 4.4 x10*3/uL (2.0-8.3); Neutrophils Percent Auto 52.9 % (45-73); Platelet Count 285 X10*3/uL (160-400); Red Blood Count 4.86 X10*6/uL (4.60-5.80); Red Cell Distribution Width 12.2 % (11.0-16.0); White Blood Count 8.4 X10*3/uL (4.8-10.8)
[2024-09-09 10:43] LABS: Alanine Aminotransferase 35 U/L (0-40); Albumin Level 4.3 g/dL (3.5-5.0); Alkaline Phosphatase 43 U/L (39-117); Anion Gap 10 (12-20); Aspartate Amino Transferase 27 U/L (5-37); Blood Urea Nitrogen 20 mg/dL (9-16); Calcium 8.6 mg/dL (8.4-10.2); Carbon Dioxide 28 mmol/L (22-29); Chloride 102 mmol/L (96-108); Cholesterol 185 mg/dL (<200); Estimated Glomerular Filt Rate > 60; Glucose Fasting 95 mg/dL (60-99); HDL Cholesterol 58 mg/dL (>40); LDL Cholesterol Calculated 109 mg/dL (<100); Potassium 3.4 mmol/L (3.3-5.1); Sodium 137 mmol/L (135-145); Total Protein 6.7 g/dL (6.5-8.0); Triglycerides 93 mg/dL (<150)
[2024-09-09 10:49] LABS: TSH reflex Free T4 0.94 uIU/mL (0.32-4.0)
[2024-09-09 13:17] LABS: Appearance Urine Clear; Color Urine Yellow; Glucose Urine UA Negative (Negative); Leukocyte Esterase Urine Negative (Negative); Nitrite Urine Negative (Negative); PH 6.5 (5.0-9.0); Specific Gravity - Urine 1.015 (1.005-1.025); Urine Blood Negative (Negative); Urine Ketones Negative (Negative); Urine Protein Negative (Neg-Trace)
== END 2024-09-09 08:23 | disposition home or self-care (01) ==
LOC: HO.HMGCLDS 08:22
PROVIDERS: PCP Nurse Practitioner Family; Visit Provider Nurse Practitioner Family
DX: F41.8 Other specified anxiety disorders (principal)
CPT/HCPCS: 36415; 80053; 80061; 81003; 84443; 85025

== ENCOUNTER 2025-02-10 11:17 | Outpatient (AMB) | payer OTHER, SELFPAY ==
[2025-02-10 11:41] VITALS: BP 134/88; PULSE 96; O2SAT 98; BMI 26.0
--- NOTE | 2025-02-10 11:41 | A.OFFPC_ITS ---
Vital Signs 02/10/25 11:41 Height 6 ft 6 in Weight 225 lb 2 oz BMI 26.0 BP 134/88 Blood Pressure Location Rt brachial Position Sitting Pulse 96 Pulse Source Pulse Oximeter Pulse Oximetry (%) 98 Oxygen Delivery Method Room Air Intake Visit Reasons: 6m follow up Intake Note: Pt is here today for 6 month follow up. Allergies No Known Allergies Allergy (Verified 02/10/25 11:41) Tobacco use date assessed: 02/10/25 Dental Screening Dental Screen Date: 02/10/25 Did you have a dental visit in the last 12 months?: Yes Did you have a dental problem in the last 6 months where you did not have access to dental care?: No Was dental information given to patient?: Patient has dentist HPI 6m follow up HPI Details Chief Complaint Follow-up regarding ongoing neuropathies and misdiagnosis of CIDP. History of Present Illness The patient is a 44-year-old male presenting with the need for a follow-up to review diagnostic imaging and discuss a revised diagnosis. He was previously misdiagnosed with Chronic Inflammatory Demyelinating Polyneuropathy (CIDP). Aft er being seen by specialists at [facility], it was determined that the patient's symptoms are more consistent with neuropathy related to the lumbar spine/thoracic spine. The misdiagnosis of CIDP has been ruled out as there is no evidence of an inflammatory demyelinating process. His current symptoms include persistent numbness and tingling in bilateral lower extremities. He is actively engaged in physical therapy to manage his condition, focusing on core strengthening. NOTE: ? Hx of iorn def, though last CBC was WNL. Does report increased fatigue. will check iron levels and order T level testing Social History - Exercise: Engaged in physical therapy, focusing on core strengthening. Health Maintenance Review of Systems - Neurological: Reports ongoing numbness and tingling in bilateral extremities. -denies weakness of BLE -denies fevers, chills, blurred vision, n/v -denies s/s of cauda equina Physical Exam General: Cooperative, healthy appearing, comfortable, no acute distress and well developed Orientation: Patient oriented x3 Limitations: No limitations Head: Normal to inspection Ears: Hearing grossly normal bilaterally Nose: Normal external nose present Face and sinus: Normal facial exam Eyes: Appearance normal, both eyes and all related structures Neck: Normal visual inspection and Yes full ROM Respiratory: Normal respiratory effort and able to speak in complete sentences. Clear to auscultation bilaterally Cardiovascular: Regular rate and rhythm. Normal S1 and S2 GI: Normal to inspection. Soft to palpation and nontender Skin: No rashes or lesions noted Neuro: Cn2-12 intact Extremities: Positive patellar reflexes, numbness and tingling in bilateral extremities Results Plan Upon reviewing the patient's imaging and history, it was concluded that the neuropathy symptoms are related to lumbar spine issues, not CIDP. Focus will be on physical therapy for core strengthening and overall fitness. Continuing with current therapy is essential, and I urged the importance of home exercise. The patient is advised to follow up with the neurologist at [facility] and ensure I receive their updates. Discussion Notes During the visit, we thoroughly discussed the revised diagnosis from CIDP to lumbar spine-related neuropathy based on comprehensive imaging analysis/[place] specialist's viewpoints. I explained the shift in therapeutic approach, emphasizing physical therapy as the cornerstone of managing these symptoms. We discussed the advantages of maintaining muscle strength and core stability through ongoing physical therapy and home exercises, which can potentially reduce symptom severity and improve functional outcomes. The patient was receptive to this plan and understands the importance of continual engagement with his physical therapist. I have outlined the next steps, including his upcoming follow-up with his neurologist, to ensure seamless communication among his healthcare providers. Patient Instructions - Continue physical therapy sessions as advised. - Perform prescribed home exercises regu larly. - Follow-up with your neurologist at [facility]. - Ensure all updates and reports from [facility] neurologist are sent to me. [facility] Medical History (Updated 02/10/25 @ 14:24 by NAMAN Biswas) Foraminal stenosis of lumbar region Degenerative thoracic spinal stenosis Bulging of cervical intervertebral disc Neuropathy, lumbosacral (radicular) Sensory neuropathy CIDP (chronic inflammatory demyelinating polyneuropathy) Numbness and tingling of left leg Scoliosis Fistula GERD (gastroesophageal reflux disease) Surgical History History of hip surgery Family History Mother Diabetes type 2, controlled Alzheimer's dementia Social History Housing: House Patient Tobacco Use Status: Former Tobacco user Tobacco use type: Cigarette e-Cigarette/Vaping Use: Currently Using (nicotine ) Second Hand Smoke Exposure: No Substance Use Type: Marijuana service: No Current occupational status: employed Cognitive needs: No Hearing needs: No Vision needs: No Questionnaire PHQ-9 Over the last 2 weeks, how often have you been bothered by any of the following problems? 1. Little interest or pleasure in doing things: several days 2. Feeling down, depressed, or hopeless: several days 3. Trouble falling or staying asleep, or sleeping too much: several days 4. Feeling tired or having little energy: several days 5. Poor appetite or overeating: several days 6. Feeling bad about yourself - or that you are a failure or have let yourself or your family down: not at all 7. Trouble concentrating on things, such as reading the newspaper or watching television: several days 8. Moving or speaking so slowly that other people could have noticed. Or the opposite - being so fidgety or restless that you have been moving around a lot more than usual: not at all 9. Thoughts that you would be better off or of hurting yourself in some way: not at all Total score: 6 Depression Screening Interpretation: Negative Depression Screening Done: Yes [id number] - PHQ-9 Billing: Yes Source: Developed by Drs. Taurus Bishop, Angeles Azar, Wisam Pedraza and colleagues, with an educational sherine from [employer]. Thrive Questionnaire Date Thrive assessed: 02/10/25 I am a: Parent/Caregiver What is your living situation today?: I have a steady place to live Within the past 12 months, did the food you bought not last and you didn't have the money to get more?: Sometimes True Within the past 12 months, did you worry whether your food would run out before you got money to buy more?: Sometimes True Do you have trouble paying for medicines?: No Do you have trouble getting transportation to medical appointments?: No Do you have trouble paying your heating and electricity bill?: Yes Do you have trouble taking care of your child, family member or friend?: Yes Do you have trouble with day-to-day activities such as bathing, preparing meals, shopping, managing finances, etc.?: No Are you currently unemployed and looking for a job?: I choose not to answer this question Are you interested in more education?: No Please select the resources that you would like help with: None Currently or been in a relationship where the following occur: No concerns reported THRIVE Score: 3 AUDIT C Alcohol Use Questionnaire (AUDIT-C) 1. How often do you have a drink containing alcohol?: Monthly or less 2. How many drinks containing alcohol do you have on a typical day when you are drinking?: 1 or 2 3. How often do you have six or more drinks on one occasion?: Never Total Score: 1 Score Reviewed/Action Taken: Yes CHARLOTTE-7 AMB Questionnaire CHARLOTTE-7 Date CHARLOTTE - 7 assessed: 02/10/25 Feeling nervous, anxious, or on edge: 1 = Several days Not being able to stop or control worryin = Several days Worrying too much about different things: 1 = Several days Trouble relaxin = Several days Being so restless that it is hard to sit still: 0 = Not at all Becoming easily annoyed or irritable: 1 = Several days Feeling afraid as if something awful might happen: 0 = Not at all Total CHARLOTTE-7 score (0-4 normal; 5-9 mild; 10-14 moderate; 15-21 severe): 5 Source: Developed by Drs. Taurus Bishop, Angeles Azar, Wisam Pedraza and colleagues, with an educational sherine from [employer]. CHARLOTTE-7 Assessment Billing CHARLOTTE-7 Assessment Tool: CHARLOTTE-7 Assessment 71896 Physical exam (Primary Care) Vital Signs: Last Vital Signs Pulse 96 02/10/25 11:41 BP 134/88 02/10/25 11:41 Pulse Ox 98 02/10/25 11:41 Oxygen Delivery Method Room Air 02/10/25 11:41 BMI result Body Mass Index 26.0 Tobacco/Smoking Status: Tobacco use Status Tobacco use date assessed 02/10/25 02/10/25 11:50 Patient Tobacco Use Status Former Tobacco user 02/10/25 11:50 Tobacco use type Cigarette 02/10/25 11:50 e-Cigarette/Vaping Use Currently Using (nicotine ) 02/10/25 11:50 PHQ-9: PHQ-9 Score PHQ-9: Total score 6 02/10/25 11:54 Depression Screening Interpretation: Negative Thrive Assessment: Date of Thrive Assessment Date Thrive assessed 02/10/25 02/10/25 11:54 Currently or been in a relationship where the following occur: No concerns reported Coding Level of Care Code Est Pt Level 4 (96774) Diagnoses Iron deficiency E61.1 Foraminal stenosis of lumbar region M48.061 Degenerative thoracic spinal stenosis M48.04 Additional Codes CHARLOTTE-7 Assessment Billing - CHARLOTTE-7 Assessment Tool: CHARLOTTE-7 Assessment 93345 ([id number]) PHQ-9 - 86362 - PHQ-9 Billing: Yes ([id number]) Assessment & Plan Assessment & Plan (1) Iron deficiency: Code(s): E61.1 - Iron deficiency Category: Medical (2) Foraminal stenosis of lumbar region: Code(s): M48.061 - Spinal stenosis, lumbar region without neurogenic claudication Category: Medical (3) Degenerative thoracic spinal stenosis: Code(s): M48.04 - Spinal stenosis, thoracic region Category: Medical Plan . Orders: Orders Comprehensive [place]. Panel Fast Today E61.1 - Iron deficiency TSH reflex Free T4 Today E61.1 - Iron deficiency Lipid Panel Today E61.1 - Iron deficiency IRON PROFILE Today E61.1 - Iron deficiency Testosterone, Total Today E61.1 - Iron deficiency Complete Blood Count Auto Diff Today E61.1 - Iron deficiency UA CC w/rflx Micro + Cult Today E61.1 - Iron deficiency Ferritin Today E61.1 - Iron deficiency
== END 2025-02-10 12:16 | disposition home or self-care (01) ==
LOC: HO.HMCC 11:18
PROVIDERS: PCP Nurse Practitioner Family; Visit Provider Nurse Practitioner Family
DX: E61.1 Iron deficiency (principal); M48.061 Spinal stenosis, lumbar region without neurogenic claudication; M48.04 Spinal stenosis, thoracic region

== ENCOUNTER → 2025-02-10 11:17 | Outpatient (BNVA) | payer OTHER, SELFPAY | PROVIDERS: PCP Nurse Practitioner Family; Visit Provider Nurse Practitioner Family | DX: E61.1 Iron deficiency (principal); M48.061 Spinal stenosis, lumbar region without neurogenic claudication; M48.04 Spinal stenosis, thoracic region | CPT/HCPCS: 96127; 99212 ==

== ENCOUNTER 2025-02-11 07:05 | Outpatient (REF) | payer OTHER, SELFPAY ==
[2025-02-11 09:58] LABS: Appearance Urine Clear; Color Urine Yellow; Glucose Urine UA Negative (Negative); Leukocyte Esterase Urine Negative (Negative); Nitrite Urine Negative (Negative); Urine Blood Negative (Negative); Urine Ketones Negative (Negative); Urine Protein Negative (Neg-Trace)
[2025-02-11 10:01] LABS: MANUAL DIFF FLAG NO
[2025-02-11 10:05] LABS: Basophils Absolute Auto 0.1 X10*3/uL (0.0-0.2); Basophils Percent Auto 0.9 % (0-2); Eosinophils Absolute Auto 0.2 X10*3/uL (0.0-0.4); Eosinophils Percent Auto 3.6 % (0-4); Hematocrit 47.8 % (42.0-52.0); Hemoglobin 16.1 g/dl (14.0-18.0); Imm Gran Abs Auto 0.02 X10*3/uL (0.00-0.03); Imm Gran Pct Auto 0.3 % (0.0-0.4); Lymphocytes Absolute Auto 1.8 X10*3/uL (1.2-4.9); Mean Corpuscular HGB Conc 33.7 g/dl (31.0-36.0); Mean Corpuscular Hemoglobin 31.1 pg (27.0-33.0); Mean Corpuscular Volume 92.5 fL (80.0-98.0); Mean Platelet Volume 10.9 fL (9.4-12.4); Monocytes Absolute Auto 0.5 X10*3/uL (0.1-1.2); Monocytes Percent Auto 7.9 % (2-11); Neutrophils Percent Auto 60.3 % (45-73); Platelet Count 262 X10*3/uL (160-400); Red Blood Count 5.17 X10*6/uL (4.60-5.80); Red Cell Distribution Width 11.9 % (11.0-16.0); White Blood Count 6.6 X10*3/uL (4.8-10.8)
[2025-02-11 10:45] LABS: Ferritin 271 ng/mL (20-250); TSH reflex Free T4 1.67 uIU/mL (0.32-4.0)
[2025-02-11 10:47] LABS: Alanine Aminotransferase 37 U/L (0-40); Albumin Level 4.4 g/dL (3.5-5.0); Anion Gap 12 (12-20); Aspartate Amino Transferase 28 U/L (5-37); Bilirubin Total 0.3 mg/dL (0.0-1.0); Blood Urea Nitrogen 18 mg/dL (9-16); Calcium 9.1 mg/dL (8.4-10.2); Carbon Dioxide 25 mmol/L (22-29); Chloride 107 mmol/L (96-108); Cholesterol 187 mg/dL (<200); Estimated Glomerular Filt Rate > 60; Glucose Fasting 106 mg/dL (60-99); HDL Cholesterol 49 mg/dL (>40); Iron 66 mcg/dL (45-160); LDL Cholesterol Calculated 108 mg/dL (<100); Percent Iron Saturation 22 % (15-50); Potassium 4.3 mmol/L (3.3-5.1); Sodium 140 mmol/L (135-145); Total Iron Binding Capacity 306 mcg/dL (228-428); Total Protein 7.1 g/dL (6.5-8.0); Triglycerides 150 mg/dL (<150); Unsaturated Iron Binding 240 ug/dL
[2025-02-11 19:45] LABS: Alkaline Phosphatase 52 U/L (39-117)
[2025-02-16 13:44] LABS: Testosterone, Total 470 ng/dL (250-1100)
== END 2025-02-11 07:06 | disposition home or self-care (01) ==
LOC: HO.HMGCLDS 07:05
PROVIDERS: PCP Nurse Practitioner Family; Visit Provider Nurse Practitioner Family
DX: E61.1 Iron deficiency (principal)
CPT/HCPCS: 36415; 80053; 80061; 81003; 82728; 83540; 84403; 84443; 85025

== ENCOUNTER 2025-03-28 08:50 | Emergency (ER) | payer OTHER, SELFPAY ==
[2025-03-28 08:56] VITALS: BP 161/89; PULSE 86; RESP 16; TEMP 36.8; O2SAT 98; BMI 25.8
[2025-03-28 09:29] LABS: MANUAL DIFF FLAG NO
[2025-03-28 09:30] LABS: Basophils Percent Auto 0.5 % (0-2); Eosinophils Absolute Auto 0.1 X10*3/uL (0.0-0.4); Eosinophils Percent Auto 1.2 % (0-4); Hematocrit 47.4 % (42.0-52.0); Hemoglobin 16.9 g/dl (14.0-18.0); Imm Gran Abs Auto 0.02 X10*3/uL (0.00-0.03); Imm Gran Pct Auto 0.2 % (0.0-0.4); Lymphocytes Absolute Auto 1.7 X10*3/uL (1.2-4.9); Lymphocytes Percent Auto 21.5 % (20-40); Mean Corpuscular HGB Conc 35.7 g/dl (31.0-36.0); Mean Corpuscular Hemoglobin 31.2 pg (27.0-33.0); Mean Corpuscular Volume 87.5 fL (80.0-98.0); Mean Platelet Volume 10.5 fL (9.4-12.4); Monocytes Absolute Auto 0.6 X10*3/uL (0.1-1.2); Monocytes Percent Auto 6.8 % (2-11); Neutrophils Absolute Auto 5.6 x10*3/uL (2.0-8.3); Neutrophils Percent Auto 69.8 % (45-73); Platelet Count 233 X10*3/uL (160-400); Red Blood Count 5.42 X10*6/uL (4.60-5.80); Red Cell Distribution Width 12.4 % (11.0-16.0); White Blood Count 8.1 X10*3/uL (4.8-10.8)
[2025-03-28 09:46] LABS: Alanine Aminotransferase 35 U/L (0-40); Albumin Level 4.6 g/dL (3.5-5.0); Alkaline Phosphatase 50 U/L (39-117); Anion Gap 11 (12-20); Aspartate Amino Transferase 25 U/L (5-37); Bilirubin Total 1.2 mg/dL (0.0-1.0); Blood Urea Nitrogen 15 mg/dL (9-16); Calcium 9.2 mg/dL (8.4-10.2); Carbon Dioxide 27 mmol/L (22-29); Chloride 106 mmol/L (96-108); Creatinine Clr Calc Pharmacy 141.5; Estimated Glomerular Filt Rate > 60; Glucose Random 112 mg/dL (60-115); Potassium 3.6 mmol/L (3.3-5.1); Sodium 140 mmol/L (135-145); Total Protein 6.9 g/dL (6.5-8.0)
--- NOTE | 2025-03-28 09:53 | ED.GENADULT ---
HPI - General Adult General Chief complaint: Nausea/Vomiting/Diarrhea Stated complaint: vomiting blood Time Seen by Provider: 03/28/25 09:14 Source: patient, RN notes reviewed and old records reviewed Mode of arrival: ambulatory History of Present Illness ED Provider: Shari Parks PA-C HPI narrative: 44-year-old male with a past medical history GERD, Schatzki ring, presenting to the ED complaining of nausea, and multiple episodes of emesis last night s/p eating dinner with 2 episodes of hematemesis. Admits last 2 episodes of emesis were bloody after dry heaving. States is currently trying to stop smoking has been on and off Chantix, admits to smoking about 10 cigarettes in about 6 hours yesterday. denies any episodes of emesis today. Denies anticoagulation use. Denies abdominal pain, diarrhea /constipation, bloody stools, melena, dysuria /hematuria Related Data Home Medications ?Medication ?Instructions ?Recorded ?Confirmed hydroxyzine HCl 25 mg tablet 25 mg PO TID 08/10/24 08/10/24 nortriptyline 10 mg capsule 10 mg PO BID 02/10/25 Previous Rx's ?Medication ?Instructions ?Recorded fluticasone propionate 50 1 spray intranasal DAILY #48 grams 03/28/24 mcg/actuation nasal spray,suspension (Allergy Relief (fluticasone)) immune glob,gamma(IgG) 10 See Rx Instructions IV Q4W CIDP 09/29/24 [id number] 0 to 50 mcg/mL IV solution (Gammagard S-D (IgA < 1 mcg/mL)) varenicline tartrate 1 mg tablet 1 mg PO BID #56 tabs 03/06/25 (Chantix) cetirizine 10 mg tablet 10 mg PO DAILY #90 tabs 03/16/25 famotidine 20 mg tablet (Pepcid) 20 mg PO DAILY #14 tabs 03/28/25 Allergies Allergy/AdvReac Type Severity Reaction Status Date / Time No Known Allergies Allergy Verified 03/28/25 08:59 Review of Systems Review of Systems: Yes all other systems are reviewed and are negative Constitutional: Constitutional: Reports as per [facility] Past Medical History Attestation statement: The following information was validated with the patient. Source: old records reviewed Medical History Foraminal stenosis of lumbar region Degenerative thoracic spinal stenosis Bulging of cervical intervertebral disc Neuropathy, lumbosacral (radicular) Sensory neuropathy CIDP (chronic inflammatory demyelinating polyneuropathy) Numbness and tingling of left leg Scoliosis Fistula GERD (gastroesophageal reflux disease) Surgical History History of hip surgery Family History Family History Mother Diabetes type 2, controlled Alzheimer's dementia Social History Social History Housing: House Patient Tobacco Use Status: Former Tobacco user Tobacco use type: Cigarette e-Cigarette/Vaping Use: Currently Using (nicotine ) Second Hand Smoke Exposure: No Substance Use Type: Marijuana Advance Directives: No Advance Directives Information Provided: Yes service: No Current occupational status: employed Cognitive needs: No Hearing needs: No Vision needs: No Physical Exam ED Vital Signs: Vital Signs - 24 hr 03/28/25 08:56 03/28/25 12:41 03/28/25 13:25 Temperature 98.2 F 98.3 F 98.3 F Pulse Rate 86 58 58 Respiratory Rate 16 18 18 Blood Pressure 161/89 H 141/93 H 141/93 H Pulse Oximetry 98 100 100 Oxygen Delivery Method Room Air Room Air Room Air BMI result Body Mass Index 25.8 Const General: cooperative, healthy appearing and no acute distress Orientation/consciousness: patient oriented x3 Limitations: no limitations HENMT Head: Yes normal to inspection and Yes atraumatic Ears: hearing grossly normal bilaterally General nose exam: Normal external nose present Face and sinus: Yes normal facial exam Eyes General: appearance normal, both eyes and all related structures EOM: EOMs intact bilaterally Neck Neck: Yes normal visual inspection and Yes no meningeal signs Resp Effort & Inspection: normal respiratory effort and no respiratory distress Auscultation: clear to auscultation bilaterally Cardio Rate: regular rate Heart sounds: S1 normal heart sound present and S2 normal heart sound present GI Inspection: Yes normal to inspection Palpation (GI): Soft to palpation, nontender, no guarding and not rigid General: Yes no CVA tenderness Back/Spine/Pelvis Back: no CVA tenderness Skin Rashes: no rashes Wounds: no wounds Neuro General: patient oriented x3, tone normal and no meningeal signs Cranial nerves: Yes CN's II-XII intact bilaterally Gait exam (Neuro): Normal gait present Extrem General: Yes normal to inspection Course Course Course Narrative: -1231-- labs reassuring > patient tolerating p.o. in the ED without difficulty. No episodes of nausea or vomiting since arrival. Recommended close GI/ PCP follow up Results discussed with patient including worrisome signs and symptoms and strict return precautions, and when to return to the emergency department. They verbalized understanding and feel safe for discharge at this time. Medications Administered Discontinued Medications Generic Name Dose Route Start Last Admin Trade Name Freq PRN Reason Stop Dose Admin Al Hydroxide/Mg Hydroxide 30 ml 03/28/25 09:40 03/28/25 10:56 Magnesium Hydrox/Alum Hydrox 30 Ml Oral.Susp PO 03/28/25 09:41 30 ml ONCE ONE Administration Famotidine 20 mg 03/28/25 09:40 03/28/25 10:56 Famotidine/Pf 20 Mg/2 Ml Vial IVPUSH 03/28/25 09:41 20 mg ONCE ONE Administration Sodium Chloride 1,000 mls @ 999 mls/hr 03/28/25 09:45 03/28/25 11:57 Ns IV 03/28/25 10:45 Infused .Q1H1M AILYN Infusion Lidocaine HCl 15 ml 03/28/25 09:40 03/28/25 10:56 Lidocaine Hcl Viscous 2 % 15 Ml Solution MUCOUS MEM 03/28/25 09:41 15 ml ONCE ONE Administration Medical Decision Making Medical Decision Making [facility] Narrative: 44-year-old male with a past medical history GERD, Schatzki ring, presenting to the ED complaining of nausea, and multiple episodes of emesis last night s/p eating dinner with 2 episodes of hematemesis. On exam vital signs stable, NAD, nontoxic appearing, abdomen is soft and nontender. Concern for PUD vs Padmini-Farmer tear. Low suspicion for Boerhaave syndrome, acute pancreatitis/ cholecystitis / lithiasis, perforation, ACS or GI bleed plan: Labs, UA, IVF, p.o. trial Please refer to course for remaining clinical decision making, interpretation of labs/imaging results, and discussions with consultants and/or family members. Differential Diagnosis Differential Diagnoses: The differential diagnosis associated with the presentation includes As above Admission/Observation Consideration of admission/observation: Escalation of care including admission/observation considered Lab Data MDM Lab Attestation statement: I reviewed the patient's lab results. 03/28/25 09:23 03/28/25 09:23 Labs: Lab Results 03/28/25 03/28/25 Range/Units 09:23 10:44 WBC 8.1 (4.8-10.8) X10*3/uL RBC 5.42 (4.60-5.80) X10*6/uL Hgb 16.9 (14.0-18.0) g/dl Hct 47.4 (42.0-52.0) % MCV 87.5 (80.0-98.0) fL MCH 31.2 (27.0-33.0) pg MCHC 35.7 (31.0-36.0) g/dl RDW 12.4 (11.0-16.0) % Plt Count 233 (160-400) X10*3/uL MPV 10.5 (9.4-12.4) fL Immature Gran % (Auto) 0.2 (0.0-0.4) % Neut % (Auto) 69.8 (45-73) % Lymph % (Auto) 21.5 (20-40) % [place] % (Auto) 6.8 (2-11) % Eos % (Auto) 1.2 (0-4) % Baso % (Auto) 0.5 (0-2) % Lymph # (Auto) 1.7 (1.2-4.9) X10*3/uL [place] # (Auto) 0.6 (0.1-1.2) X10*3/uL Eos # (Auto) 0.1 (0.0-0.4) X10*3/uL Baso # (Auto) 0.0 (0.0-0.2) X10*3/uL Abs Immat Gran (auto) 0.02 (0.00-0.03) X10*3/uL Absolute Neuts (auto) 5.6 (2.0-8.3) x10*3/uL Absolute Nucleated RBC 0.000 (0.0-0.012) X10*3/uL Nucleated RBC % (auto) 0.0 (0.0-0.2) /100WBC PT 12.6 H (10.9-12.4) SEC INR 1.1 (0.9-1.1) Sodium 140 (135-145) mmol/L Potassium 3.6 (3.3-5.1) mmol/L Chloride 106 (96-108) mmol/L Carbon Dioxide 27 (22-29) mmol/L Anion Gap 11 L (12-20) BUN 15 (9-16) mg/dL Creatinine 0.87 (0.5-1.4) mg/dL Estim Creat Clear Calc 141.5 Estimated GFR > 60 Random Glucose 112 (60-115) mg/dL Calcium 9.2 (8.4-10.2) mg/dL Magnesium 1.8 (1.6-2.6) mg/dL Total Bilirubin 1.2 H (0.0-1.0) mg/dL AST 25 (5-37) U/L ALT 35 (0-40) U/L Alkaline Phosphatase 50 (39-117) U/L Total Protein 6.9 (6.5-8.0) g/dL Albumin 4.6 (3.5-5.0) g/dL Lipase 15 (8-78) U/L Urine Color Yellow Urine Appearance Clear Urine pH 7.0 (5.0-9.0) Ur Specific [place] <= 1.005 (1.005-1.025) Urine Protein Negative (Neg-Trace) mg/dL Urine Glucose (UA) Negative (Negative) mg/dL Urine Ketones Negative (Negative) mg/dL Urine Blood Negative (Negative) Urine Nitrite Negative (Negative) Ur Leukocyte Esterase Negative (Negative) Radiology Impression Discussion of test interpretation with radiology: I have reviewed the radiologist's reading. External Record Review External record reviewed: Inpatient record, Office record, Outpatient record, Prior outpatient labs, Prior outpatient radiology, Primary care record and Outside ED record Tests considered The following testing was considered but not selected: As above Prescription Management I considered prescription management with: Pain Medication and Other Chronic Conditions Patient?s care impacted by: Other Social Determinants Patient?s care significantly limited by Social Determinants of Health including: Other Social Determinant of Health Discharge Plan Discharge Clinical Impression: Nausea & vomiting Patient Disposition: Home, Self-Care Instructions: Acute Nausea and Vomiting (DC) Additional Instructions: your labs are reassuring Pepcid will help with acid reduction please avoid spicy foods, sweets, caffeine, chocolate Follow up with your doctor as well as Gastroenterology If her symptoms persist or worsen you have constant worsening abdominal pain, persistent nausea /vomiting, you are unable to eat or drink have persistent / worsening bloody vomit or bloody stools/black stools return to the ED Prescriptions: New famotidine [Pepcid] 20 mg tablet 20 mg PO DAILY Qty: 14 0RF No Action fluticasone propionate [Allergy Relief (fluticasone)] 50 mcg/actuation spray,suspension 1 spray intranasal DAILY Qty: 48 1RF Rx Instructions: administer into each nostril Gammagard S-D (IgA < 1 mcg/mL) 10 gram recon soln See Rx Instructions IV Q4W Rx Instructions: 200gm given over 2 days - first dose followed by 100gm X1 day q 4 weeks intravenously every 4 weeks; Patients weight - 102 kgs varenicline tartrate [Chantix] 1 mg tablet 1 mg PO BID Qty: 56 1RF cetirizine 10 mg tablet 10 mg PO DAILY Qty: 90 1RF hydroxyzine HCl 25 mg tablet 25 mg PO TID nortriptyline 10 mg capsule 10 mg PO BID Referrals: [facility] [Provider Group] - 1 week Richy Stearns FNP-BC [Primary Care Provider] - Interventions: ED Discharge Assessment Last Done: 03/28/25 13:25 Discharge Date/Time: 03/28/25 13:21 Print Language: Sinhala
[2025-03-28 10:30] LABS: Lipase 15 U/L (8-78); Magnesium 1.8 mg/dL (1.6-2.6)
[2025-03-28] MEDS: Famotidine/PF 20 MG/2 ML VIAL IVPUSH (10:56)
[2025-03-28] MEDS: Magnesium Hydrox/Alum Hydrox 30 ML ORAL.SUSP PO (10:56)
[2025-03-28] MEDS: Lidocaine HCl Viscous 2 % 15 ML SOLUTION MUCOUS MEM (10:56)
[2025-03-28] MEDS: 0.9 % Sodium Chloride 1,000 ML 999 ML IV (10:56)
[2025-03-28 10:57] LABS: INTERNATIONAL NORM RATIO 1.1 (0.9-1.1); Prothrombin Time 12.6 SEC (10.9-12.4)
[2025-03-28 10:58] LABS: Appearance Urine Clear; Color Urine Yellow; Glucose Urine UA Negative (Negative); Leukocyte Esterase Urine Negative (Negative); Nitrite Urine Negative (Negative); Specific Gravity - Urine <= 1.005 (1.005-1.025); Urine Blood Negative (Negative); Urine Ketones Negative (Negative); Urine Protein Negative (Neg-Trace)
[2025-03-28 12:41] VITALS: BP 141/93; PULSE 58; RESP 18; TEMP 36.8; O2SAT 100
[2025-03-28 13:25] VITALS: BP 141/93; PULSE 58; RESP 18; TEMP 36.8; O2SAT 100
== END 2025-03-28 13:21 | disposition home or self-care (01) ==
PROVIDERS: Physician Assistant; Emergency Provider Emergency Medicine Emergency Medical Services; PCP Nurse Practitioner Family
DX: R11.2 Nausea with vomiting, unspecified (principal); F17.210 Nicotine dependence, cigarettes, uncomplicated; Z79.899 Other long term (current) drug therapy
CPT/HCPCS: 36415; 80053; 81003; 83690; 83735; 85025; 85610; 96361; 96374; 99284; J1308

== ENCOUNTER 2025-04-05 08:11 | Outpatient (AMB) | payer OTHER, SELFPAY ==
--- NOTE | 2025-04-05 07:59 | MHC.PC.OV ---
Intake Visit Reasons: ED Follow up Allergies No Known Allergies Allergy (Verified 04/05/25 08:03) Medication List - Last [facility] 04[facility]05/25 [facility] cetirizine 10 mg PO DAILY famotidine (Pepcid) 20 mg PO DAILY fluticasone propionate 50 mcg/actuation (Allergy Relief (fluticasone)) 1 spray intranasal DAILY hydroxyzine HCl 25 mg PO TID immun glob N-zrl-gxcv-IgA 0-50 10 gram (Gammagard S-D (IgA < 1 mcg/mL)) 200gm given over 2 days - first dose followed by 100gm X1 day q 4 weeks intravenously every 4 weeks; Patients weight - 102 kgs nortriptyline 10 mg PO BID pantoprazole 20 mg PO DAILY varenicline tartrate (Chantix) 1 mg PO BID Tobacco use date assessed: 02/10/25 Dental Screening Dental Screen Date: 02/10/25 HPI ED Follow up HPI Details History of Present Illness The patient is a 44-year-old male presenting for a hospital discharge follow-up concerning gastroesophageal issues, including GERD and hematemesis. He has a documented history of GERD and Schatzki's ring. On March 28, he attended the emergency department due to nausea and vomiting episodes which included hematemesis after dry heaving. He had smoked 10 cigarettes within the preceding six hours. He denied abdominal pain, diarrhea, constipation, bloody stools, melena, dysuria, or hematuria. Reports indicated an improvement over time, with no current episodes of vomiting and reduced nausea. While he experienced blood in stools, this was consistent with a history of hemorrhoids. Though prescribed famotidine, he has not commenced taking it due to nausea and issues with pharmacy collection. Currently, he reports feeling better without fever or chills. Review of Systems - Gastrointestinal: Reports nausea, dark hematemesis; Denies abdominal pain, diarrhea, constipation, bloody stools, melena. - Genitourinary: Denies dysuria, hematuria. - Constitutional: Denies fever, chills. - Respiratory: Denies current symptoms (implied through lack of mention). Plan I will start a proton pump inhibitor and arrange for an upper gastrointestinal series to assess the source of bleeding, especially in light of smoking-related risks. A referral to a regional clinical research associate is warranted for further assessment of GERD and hematemesis. The patient is advised to follow up with any questions or additional problems. Discussion Notes I discussed with the patient the likely diagnoses of GERD with possible ulceration contributing to symptoms, considering his smoking and previous diagnosis of Schatzki's ring. Managing GERD with a proton pump inhibitor was recommended to address his ongoing gastroesophageal symptoms. I explained the rationale for conducting an upper GI series to evaluate the source of hematemesis. The risks and benefits of smoking cessation were highlighted given its contribution to his condition. I emphasized the importance of gastroenterology follow-up for a thorough evaluation. The patient was advised to contact me with any further questions or developments. Patient Instructions - Start taking the prescribed PPI as directed. - Obtain an upper GI series as scheduled. - Contact the referred regional clinical research associate for a follow-up appointment. - Quit smoking to help improve symptoms and prevent further complications. - Monitor for any new or worsening symptoms and report them promptly. - Reach out to me with any questions or concerns. [facility] Medical History Foraminal stenosis of lumbar region Degenerative thoracic spinal stenosis Bulging of cervical intervertebral disc Neuropathy, lumbosacral (radicular) Sensory neuropathy CIDP (chronic inflammatory demyelinating polyneuropathy) Numbness and tingling of left leg Scoliosis Fistula GERD (gastroesophageal reflux disease) Surgical History History of hip surgery Family History Mother Diabetes type 2, controlled Alzheimer's dementia Social History Housing: House Patient Tobacco Use Status: Former Tobacco user Tobacco use type: Cigarette e-Cigarette/Vaping Use: Currently Using (nicotine ) Second Hand Smoke Exposure: No Substance Use Type: Marijuana service: No Current occupational status: employed Cognitive needs: No Hearing needs: No Vision needs: No Questionnaire Thrive Questionnaire Date Thrive assessed: 02/05/25 I am a: Parent/Caregiver What is your living situation today?: I have a steady place to live Within the past 12 months, did the food you bought not last and you didn't have the money to get more?: Sometimes True Within the past 12 months, did you worry whether your food would run out before you got money to buy more?: Sometimes True Do you have trouble paying for medicines?: No Do you have trouble getting transportation to medical appointments?: No Do you have trouble paying your heating and electricity bill?: Yes Do you have trouble taking care of your child, family member or friend?: Yes Do you have trouble with day-to-day activities such as bathing, preparing meals, shopping, managing finances, etc.?: No Are you currently unemployed and looking for a job?: I choose not to answer this question Are you interested in more education?: No Please select the resources that you would like help with: None Currently or been in a relationship where the following occur: No concerns reported THRIVE Score: 3 CHARLOTTE-7 AMB Questionnaire CHARLOTTE-7 Date CHARLOTTE - 7 assessed: 02/10/25 Source: Developed by Drs. Taurus Bishop, Angeles Azar, Wisam Pedraza and colleagues, with an educational sherine from [employer]. Physical exam (Primary Care) Tobacco/Smoking Status: Tobacco use Status Tobacco use date assessed 02/10/25 02/10/25 11:50 Patient Tobacco Use Status Former Tobacco user 02/10/25 11:50 Tobacco use type Cigarette 02/10/25 11:50 e-Cigarette/Vaping Use Currently Using 02/10/25 11:50 Thrive Assessment: Date of Thrive Assessment Date Thrive assessed 02/05/25 04/02/25 12:05 Currently or been in a relationship where the following occur: No concerns reported Telehealth Telehealth Telehealth Platform: [facility] Location of provider rendering services: practice address Location of patient: address on file Patient Identification confirmed using: Name, : Yes Telehealth method: video Patient verbally consented to treatment: Yes Patient verbally consented to billing insurance company: Yes Minutes spent on Phone/Video with Pt.: 15 Coding Level of Care Code Tele Est Pt Level 4 (17655) Diagnoses Lower GI bleed K92.2 Upper GI bleed K92.2 Schatzki's ring K22.2 Assessment & Plan Assessment & Plan (1) Lower GI bleed: Code(s): K92.2 - Gastrointestinal hemorrhage, unspecified Category: Medical (2) Upper GI bleed: Code(s): K92.2 - Gastrointestinal hemorrhage, unspecified Category: Medical (3) Schatzki's ring: Code(s): K22.2 - Esophageal obstruction Category: Medical Plan . Orders: Orders FL upper GI w air w Ba Swallow Today K22.2 - Esophageal obstruction, K92.2 - Gastrointestinal hemorrhage, unspecified Referrals Gastroenterology Referral K92.2 - Gastrointestinal hemorrhage, unspecified Medications: New pantoprazole 20 mg PO DAILY 90 tabs 0RF
== END 2025-04-05 08:36 | disposition home or self-care (01) ==
LOC: HO.HMCC 08:11
PROVIDERS: PCP Nurse Practitioner Family; Visit Provider Nurse Practitioner Family
DX: K92.2 Gastrointestinal hemorrhage, unspecified (principal); K22.2 Esophageal obstruction

== ENCOUNTER → 2025-04-05 08:11 | Outpatient (BNVA) | payer OTHER, SELFPAY | PROVIDERS: PCP Nurse Practitioner Family; Visit Provider Nurse Practitioner Family | DX: Z13.89 Encounter for screening for other disorder (principal); K22.2 Esophageal obstruction; K92.2 Gastrointestinal hemorrhage, unspecified ==

== ENCOUNTER 2025-04-26 09:43 | Outpatient (REF) | payer OTHER, SELFPAY ==
--- NOTE | ~2025-04-26 | FL_ITS ---
EXAMINATION: Routine upper GI air contrast study with barium swallow. CLINICAL INFORMATION: Esophageal obstruction. COMPARISON: None available. TECHNIQUE: Routine upper GI contrast study in upright and lying position was performed with barium swallow in upright view. FINDINGS: Following oral administration of thick barium and effervescent granules there is normal propagation of bolus from the oral cavity through the pharynx, esophagus into stomach without any evidence of obstruction, narrowing or stricture. No extrinsic compression seen. No laryngeal penetration or aspiration. On placing patient in supine and prone lying the course, caliber and peristalsis stomach is normal except for a small sliding hiatal hernia. No reflux seen. The mucosal pattern of the esophagus, stomach and the duodenum is normal. There is no visualization of schatzki's ring at this time. FLUOROSCOPY TIME: 2 minute 13 seconds DOSE AREA PRODUCT: 1693 uGy-m2 (microgray-meter squared) FL/FL upper GI w Ba Swallow IMPRESSION: Small sliding hiatal hernia without gastroesophageal reflux. Electronically signed by: Sai Chisholm MD 04/26/2025 11:30 AM EDT
== END 2025-04-26 09:44 | disposition home or self-care (01) ==
LOC: HO.XRAY 09:43
PROVIDERS: PCP Nurse Practitioner Family; Visit Provider Nurse Practitioner Family
DX: K22.2 Esophageal obstruction (principal); K92.2 Gastrointestinal hemorrhage, unspecified
CPT/HCPCS: 74240

== ENCOUNTER → 2025-04-26 09:47 | Outpatient (BNV) | payer OTHER, SELFPAY | PROVIDERS: PCP Nurse Practitioner Family; Visit Provider Radiology Diagnostic Radiology | DX: K44.9 Diaphragmatic hernia without obstruction or gangrene (principal) | CPT/HCPCS: 74246 ==

== ENCOUNTER 2025-06-03 10:51 | Outpatient (AMB) | payer OTHER, SELFPAY ==
--- NOTE | 2025-06-03 10:56 | A.OFFVIS_ITS ---
Vital Signs 06/03/25 10:57 Height 6 ft 6 in Weight 227 lb BMI 26.2 BP 132/72 Blood Pressure Location Lt brachial Position Sitting Pulse 79 Pulse Oximetry (%) 97 Oxygen Delivery Method Room Air Intake Visit Reasons: Gastrointestinal hemorrhage Intake Note: Patient new consult for Gastrointestinal hemorrhage. Patient cc: patient was vomiting blood and he was sent to do an Upper GI and Barium swallow results for 04/26, swallowing problems on and off, denies any other GI issues. Crnp Required: No Accompanied by: Self / Same As Patient Allergies No Known Allergies Allergy (Verified 06/03/25 10:56) Medication List - Last Reconciled 06/03/25 by Kelly Mclean CNP cetirizine 10 mg PO DAILY fluticasone propionate 50 mcg/actuation (Allergy Relief (fluticasone)) 1 spray intranasal DAILY hydroxyzine HCl 25 mg PO TID pantoprazole 20 mg PO DAILY HPI HPI Gastrointestinal hemorrhage: Details: Patient is a 44-year-old male with PMH of anxiety and depression, nicotine dependence, neuropathy demyelinating and GERD. Referred by PCP for further evaluation of hematemesis Patient presents after referral from PCP for a single episode of hematemesis following nausea, which occurred after a period of increased stress and cigarette use. Patient reports taking Chantix for smoking cessation and, after a lapse, smoked approximately 10 cigarettes in a short period, which precipitated nausea and subsequent vomiting of deep red blood described as ?like red wine.? No prior history of hematemesis except for a remote episode related to alcohol poisoning. Upper GI series on April 26, 2025, revealed a small hiatal hernia with otherwise normal esophagus, stomach, and duodenum, and no evidence of reflux or abnormal tissue. Patient denies classic reflux symptoms but endorses intermittent epigastric pressure, especially after consuming tomato-based foods, which also trigger mild discomfort during bowel movements. Stool consistency alternated (type 5?6) for three weeks post-ER visit but has since normalized. No ongoing GI bleeding noted. 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 Marijuana use is being reduced as a self-management strategy for stress. No other exacerbating factors identified; dietary modification provides relief. Patient denies: fever/chills, appetite changes, pyrosis, regurgitation,dysphasia, unintentional wt loss or melena/hematochezia. Social hx: -Diet: Minimizes processed foods; triggers?tomato-based foods, pizza. Occasional AM epigastric discomfort linked to diet. -EtOH/Tob/Drugs: EtOH ~1x/wk socially. Former smoker (quit ~2 mo ago after binge/hematemesis); recent Chantix. Marijuana daily, tapering. 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 - family hx as below -denies personal hx of CA -denies significant cardiopulmonary history -tolerated anesthesia in the past without difficulty. [facility] Medical History (Updated 06/03/25 @ 12:02 by Kelly Mclean CNP) Hematemesis Epigastric abdominal pain Foraminal stenosis of lumbar region Degenerative thoracic spinal stenosis Bulging of cervical intervertebral disc Neuropathy, lumbosacral (radicular) Sensory neuropathy CIDP (chronic inflammatory demyelinating polyneuropathy) Numbness and tingling of left leg Scoliosis Fistula GERD (gastroesophageal reflux disease) Surgical History History of hip surgery Family History (Updated 06/03/25 @ 12:09 by Kelly Mclean CNP) Mother Diabetes type 2, controlled Alzheimer's dementia FH: cholecystectomy Brother FH: cholecystectomy Social History Housing: House Patient Tobacco Use Status: Former Tobacco user Tobacco use type: Cigarette e-Cigarette/Vaping Use: Currently Using Second Hand Smoke Exposure: No Substance Use Type: Marijuana service: No Current occupational status: employed Cognitive needs: No Hearing needs: No Vision needs: No Review of Systems Const Reports as per HPI ENT Reports as per HPI Card Reports as per HPI Resp Reports as per HPI GI Reports as per HPI Reports as per HPI Physical Exam Vital Signs: Last Vital Signs Pulse 79 06/03/25 10:57 BP 132/72 06/03/25 10:57 Pulse Ox 97 06/03/25 10:57 Oxygen Delivery Method Room Air 06/03/25 10:57 BMI result Body Mass Index 26.2 Const General: healthy appearing, no acute distress and well developed Nutritional Appearance: average body habitus Orientation/consciousness: patient oriented x3 HEENT Head: Yes normal to inspection, Yes normocephalic and Yes atraumatic Face and sinus: Yes normal facial exam Eyes General: appearance normal, both eyes and all related structures Neck Neck: Yes normal visual inspection Resp Effort & Inspection: normal respiratory effort, able to speak in complete sentences, no tracheal deviation and symmetric chest movement Auscultation: clear to auscultation bilaterally Cardio Jugular venous distension: no JVD Rate: regular rate Rhythm: regular rhythm Heart sounds: S1 normal heart sound present, S2 normal heart sound present, no gallops and no murmurs GI Inspection: Yes normal to inspection and No distended Palpation (GI): Soft to palpation, not firm, nontender and No hepatosplenomegaly present Auscultation: normal bowel sounds Rectal Exam - Male: Yes deferred Neuro General: patient oriented x3 Gait exam (Neuro): Normal gait present Psych Appearance: grossly normal Mental Status: mental status grossly normal Speech and movement: Normal speech and movement present Affect: normal affect Attitude: cooperative Thought process: Normal thought process present Thought content: Normal thought content present Insight: Good insight present (Psych) Judgement: Good judgement present (Psych) Results Reviewed Results Reviewed: Date of Service: 04/26/25 Procedure(s): FL upper GI w Ba Swallow Accession Number(s): [id number] cc: Richy Stearns [facility]~ EXAMINATION: Routine upper GI air contrast study with barium swallow. CLINICAL INFORMATION: Esophageal obstruction. COMPARISON: None available. TECHNIQUE: Routine upper GI contrast study in upright and lying position was performed with barium swallow in upright view. FINDINGS: Following oral administration of thick barium and effervescent granules there is normal propagation of bolus from the oral cavity through the pharynx, esophagus into stomach without any evidence of obstruction, narrowing or stricture. No extrinsic compression seen. No laryngeal penetration or aspiration. On placing patient in supine and prone lying the course, caliber and peristalsis stomach is normal except for a small sliding hiatal hernia. No reflux seen. The mucosal pattern of the esophagus, stomach and the duodenum is normal. There is no visualization of schatzki's ring at this time. FLUOROSCOPY TIME: 2 minute 13 seconds DOSE AREA PRODUCT: 1693 uGy-m2 (microgray-meter squared) FL/FL upper GI w Ba Swallow IMPRESSION: Small sliding hiatal hernia without gastroesophageal reflux. Assessment & Plan Assessment & Plan (1) Hematemesis: Code(s): K92.0 - Hematemesis Category: Medical Qualifiers: Nausea presence: with nausea Qualified Code(s): K92.0 - Hematemesis Plan: Hematemesis temporally related to acute tobacco/Chantix use, stress and dietary factors; imaging confirms small hiatal hernia; h/o hemorrhoids and dietary triggers for rectal irritation. Additional Testing: -Abdominal US to r/o biliary pathology (FHx cholecystectomy). -Monitor for recurrent GI bleeding; rectal exam deferred. Consider repeat colonoscopy if rectal bleeding recurs/increases. Medication Management: -Continue pantoprazole 40mg PO QD x 8-12 wks; reassess need at f/u. Lifestyle Recommendations: -Small, frequent meals; avoid triggers (tomato-based, spicy/acidic foods). -High-fiber diet, adequate hydration. -Avoid straining with BMs. -Continue marijuana taper; explore alternative stress mgmt. Follow-Up: -F/u after US or sooner if sx worsen. -Trial pantoprazole wean after 8 wks if tolerated. -Monitor for new/worsening GI sx (hematemesis, melena, persistent pain). Plan Follow-up in 3 months or sooner as needed Time: I spent a total of 45 minutes on the date of encounter which includes: Preparing to see the patient (reviewed previous documentation, test results and medical history) Performing a medically appropriate exam and/or evaluation Ordering medications, tests, and procedures Documenting clinical information in the health record Orders: Orders US abdomen complete Today R10.13 - Epigastric pain Coding Level of Care Code New Pt New Pt Level 4 (95206) Patient Type New Diagnoses Hematemesis with nausea K92.0 Nausea presence: with nausea
[2025-06-03 10:57] VITALS: BP 132/72; PULSE 79; O2SAT 97; BMI 26.2
== END 2025-06-03 11:53 | disposition home or self-care (01) ==
LOC: HO.HGI 10:51
PROVIDERS: PCP Nurse Practitioner Family; Visit Provider Nurse Practitioner Family
DX: K92.0 Hematemesis (principal)
CPT/HCPCS: 99204

== ENCOUNTER → 2025-06-03 10:51 | Outpatient (BNVA) | payer OTHER, SELFPAY | PROVIDERS: PCP Nurse Practitioner Family; Visit Provider Nurse Practitioner Family | DX: K92.0 Hematemesis (principal); R10.13 Epigastric pain | CPT/HCPCS: 99202 ==

== ENCOUNTER 2025-06-15 08:47 | Outpatient (REF) | payer OTHER, SELFPAY ==
--- NOTE | ~2025-06-15 | US_ITS ---
CLINICAL HISTORY: R10.13 - Epigastric pain US abdomen complete with duplex and color Doppler Comparison: None Findings: The visualized pancreas, aorta, and inferior vena cava are unremarkable. Liver normal size and echotexture. Right lobe 17.4 cm length. No focal hepatic masses. Common duct 3.4 mm diameter. Physiologic distention of the gallbladder. No gallstones or sludge. No gallbladder wall thickening. No pericholecystic fluid. No sonographic De Souza sign. Main portal vein antegrade. Right kidney normal size, 12.3 cm in length. Normal cortical width and echotexture. No solid or cystic renal masses. No hydronephrosis. No nephrolithiasis. Left kidney normal, 11.7 cm in length. Normal cortical width and echotexture. No solid or cystic renal masses. Mild pelvicaliectasis. No nephrolithiasis. Spleen measures 13.6 cm. No splenic masses. No ascites. No lymphadenopathy. Impression: 1. Normal gallbladder 2. Mild splenomegaly 3. Bowel gas obscures midline structures This document has been electronically signed by: Oliverio Smith MD on 06/16/2025 15:35:16
--- OUTSIDE RECORDS SUMMARY | 2025-06-15 09:28 | XMS_ITS | Encounter Summary ---
Author Organization [facility] Address [address] [place] [address] Phone Care Team Providers Care Physician Intensivist Name Role Phone Richy Stearns RN ENDOSCOPY Primary Care Provider + Encounter Details Date Type Department Care Team (Late st Contact Info) Description 10/13/2024 Procedure Pass MRI, [facility] - [address], [address] [place] [address] Social History Tobacco Use Types Packs/Day Years Used Date Smoking Tobacco: Every Day Cigarettes Smokeless Tobacco: Never Education Answer Date Recorded Are you interested in more education? Not on chelsy e 01/09/2024 Are you concerned about learning? Not on file 01/09/2024 No 01/09/2024 No 01/09/2024 Digital Access Answer Date Recorded No 01/09/2024 No 01/09/2024 Reliable internet access at home? Not on file 01/09/2024 Device with a working camera? Not on file Sex and Gender Information Value Date Recorded Sex Assigned at Male 09/01/2024 4:50 PM EST Legal Sex Male 3:38 PM EDT Gender Identity Male 09/01/2024 4:50 PM EST Sexual Orientation Straight 09/01/2024 4: 50 PM EST documented as of this encounter Plan of Treatment Upcoming Encounters Date Type Department Care Team (Late st Contact Info) Description 06/29/2025 4:00 PM EDT Office Visit [facility] Neurology Neuromuscular [address], [address] [place] [address] Naveen Mercedes MD, MSc [address] [place] [address] [id number] [place] [address] [email or web address] documented as of this encounter Visit Diagnoses Not on filedocumented in this encounter Care Teams Physician Intensivist Relationship Specialty Start Date End Date Richy Stearns NP [address] [place] [address] PCP - General Nurse Practitioner 09/01/24 documented as of this encounter Additional Source Comments The information contained in this document represents components of the legal health record. It is not the complete legal health record.[facility]
== END 2025-06-15 08:48 | disposition home or self-care (01) ==
LOC: HO.HMGCX 08:47
PROVIDERS: PCP Nurse Practitioner Family; Visit Provider Nurse Practitioner Family
DX: R10.13 Epigastric pain (principal)
CPT/HCPCS: 76700

== ENCOUNTER → 2025-06-15 08:51 | Outpatient (BNV) | payer OTHER, SELFPAY | PROVIDERS: PCP Nurse Practitioner Family; Visit Provider Radiology Diagnostic Radiology | DX: R16.1 Splenomegaly, not elsewhere classified (principal) | CPT/HCPCS: 76700 ==

== ENCOUNTER 2025-06-20 11:41 | Outpatient (AMB) | payer OTHER, SELFPAY ==
[2025-06-20 11:56] VITALS: BP 122/76; PULSE 72; TEMP 36.6; O2SAT 98; BMI 26.0
--- NOTE | 2025-06-20 11:56 | MHC.OFFWIV ---
Intake Vital Signs 06/20/25 11:56 Height 6 ft 6 in Weight 225 lb BMI 26.0 BP 122/76 Blood Pressure Location Lt brachial Position Sitting Pulse 72 Pulse Source Pulse Oximeter Temp 97.9 F Temp Source Oral Pulse Oximetry (%) 98 Oxygen Delivery Method Room Air Intake Visit Reasons: EP-rt ankle tick bite Intake Note: pt presents with tick bite to right inner ankle- noticed yesterday morning Patient Tobacco Use Status: Former Tobacco user Allergies No Known Allergies Allergy (Verified 06/20/25 11:59) Do you need a note to return to daycare/school/sports/work: No HPI HPI Comments History of Present Illness Details 44 y/o Male patient who presents to the walk in clinic with c/o Tick Bite left Ankle. He was playing Golf yesterday, when he noticed an area of redness left ankle. Pt worried he has a rash with [place]. Pt worried He might have Lyme disease due to the rash. Denies seeing a Tick or removing one. The rash has resolved this morning. Denies any symptoms. [facility] Medical History (Updated 06/20/25 @ 12:53 by Carmela Bahena NP) Insect bite Hematemesis Epigastric abdominal pain Foraminal stenosis of lumbar region Degenerative thoracic spinal stenosis Bulging of cervical intervertebral disc Neuropathy, lumbosacral (radicular) Sensory neuropathy CIDP (chronic inflammatory demyelinating polyneuropathy) Numbness and tingling of left leg Scoliosis Fistula GERD (gastroesophageal reflux disease) Surgical History History of hip surgery Family History (Updated 06/03/25 @ 12:09 by Kelly Mclean CNP) Mother Diabetes type 2, controlled Alzheimer's dementia FH: cholecystectomy Brother FH: cholecystectomy Social History Housing: House Patient Tobacco Use Status: Former Tobacco user Tobacco use type: Cigarette e-Cigarette/Vaping Use: Currently Using Second Hand Smoke Exposure: No Substance Use Type: Marijuana service: No Current occupational status: employed Cognitive needs: No Hearing needs: No Vision needs: No Review of Systems Const All systems reviewed & are unremarkable except as noted in HPI and below Physical Exam Vital Signs: Last Vital Signs Temp 97.9 F 06/20/25 11:56 Pulse 72 06/20/25 11:56 BP 122/76 06/20/25 11:56 Pulse Ox 98 06/20/25 11:56 Oxygen Delivery Method Room Air 06/20/25 11:56 BMI result Body Mass Index 26.0 Const General: no acute distress Orientation/consciousness: patient oriented x3 Neuro General: patient oriented x3 Extrem Ankle/foot/toe images:  1. Small area of Redness with Puncture wound. No visible Rash. Assessment & Plan Assessment & Plan (1) Insect bite: Code(s): W57.XXXA - Bitten or stung by nonvenomous insect and other nonvenomous arthropods, initial encounter Qualifiers: Encounter type: initial encounter Site of insect bite: foot Plan: Pt is Asymptomatic at this time and no visible rash. Will continue to monitor. Coding Level of Care Code Est Pt Level 4 (95322) Diagnoses Insect bite W57.XXXA Encounter type: initial encounter Site of insect bite: foot Time Spent (min) 20
--- OUTSIDE RECORDS SUMMARY | 2025-06-20 13:13 | XMS_ITS | Encounter Summary ---
Author Organization [facility] Address [address] [place] [address] Phone Care Team Providers Care Private Advisor Name Role Phone Richy Stearns CHURN DRILLER Primary Care Provider + Encounter Details Date Type Department Care Team (Late st Contact Info) Description 10/13/2024 Procedure Pass MRI, [facility] Imaging - [address], [address] [place] [address] Social History Tobacco Use Types Packs/Day Years [...] Description 06/29/2025 4:00 PM EDT Office [place] [facility] [place] Neuromuscular [address], [address] [place] [address] Naveen Mercedes MD, MSc [address] [place] [address] [id number] [place] [address] [email or web address] documented as of this encounter Visit Diagnoses Not on filedocumented in this encounter Care Teams Private Advisor Relationship Specialty Start Date End Date Richy Stearns NP [address] [facility] [place] [address] PCP - General Nurse Practitioner 09/01/24 documented as of this encounter Additional Source Comments The information contained in this document represents components of the legal health record. It is not the complete legal health record.[facility]
== END 2025-06-20 12:52 | disposition home or self-care (01) ==
PROVIDERS: PCP Nurse Practitioner Family; Visit Provider Nurse Practitioner Family
DX: T63.481A Toxic effect of venom of other arthropod, accidental (unintentional), initial encounter (principal)

== ENCOUNTER → 2025-06-20 11:41 | Outpatient (BNVA) | payer OTHER, SELFPAY | PROVIDERS: PCP Nurse Practitioner Family; Visit Provider Nurse Practitioner Family | DX: S90.562A Insect bite (nonvenomous), left ankle, initial encounter (principal); W57.XXXA Bitten or stung by nonvenomous insect and other nonvenomous arthropods, initial encounter; Y93.9 Activity, unspecified; Y92.9 Unspecified place or not applicable; Y99.9 Unspecified external cause status | CPT/HCPCS: 99212 ==

== ENCOUNTER 2025-08-11 11:16 | Outpatient (AMB) | payer OTHER, SELFPAY ==
[2025-08-11 11:18] VITALS: BP 120/70; PULSE 64; RESP 16; O2SAT 95; BMI 24.6
--- NOTE | 2025-08-11 11:18 | A.OFFPC_ITS ---
Vital Signs 08/11/25 11:18 Height 6 ft 6 in Weight 213 lb BMI 24.6 BP 120/70 Blood Pressure Location Lt brachial Position Sitting Respiration 16 Pulse 64 Pulse Source Pulse Oximeter Pulse Oximetry (%) 95 Oxygen Delivery Method Room Air Intake Visit Reasons: 6m follow up Beam Carrier Hauler Pusher Required: No Accompanied by: Self / Same As Patient Allergies No Known Allergies Allergy (Verified 08/11/25 11:59) Medication List - Last Reconciled 08/11/25 by ALBA BiswasP- cetirizine 10 mg PO DAILY fluticasone propionate 50 mcg/actuation (Allergy Relief (fluticasone)) 1 spray intranasal DAILY hydroxyzine HCl 25 mg PO TID PRN Tobacco use date assessed: 08/11/25 Dental Screening Dental Screen Date: 08/11/25 Did you have a dental visit in the last 12 months?: Yes Did you have a dental problem in the last 6 months where you did not have access to dental care?: No Was dental information given to patient?: Patient declined HPI 6m follow up HPI Details Chief Complaint The patient presents with anxiety and depression management concerns. History of Present Illness The patient is a 44-year-old male presenting with anxiety and depression management concerns. He has been stable but finds it increasingly challenging to care for his mother full-time, which may be contributing to his stress levels. He is considering placing her in a facility for additional support. The patient denies any suicidal or homicidal ideation and is actively seeking therapy to manage his mental health. He prefers not to use medications for his anxiety and depression but has hydroxyzine available for anxiety attacks as needed. The patient reports experiencing plantar foot pain, primarily in the plantar aspect, and has extremely high arches. There is no pain with dorsiflexion or palpation of the plantar region, and he maintains good dorsiflexion and plantar flexion against resistance without pain. He is advised to see a welding process engineer for further evaluation and management of his foot condition. Socially, the patient smokes marijuana intermittently to help manage his depression and anxiety symptoms. Social History - Family status: Cares for his mother fu ll-time, considering facility placement for her - Substance use: Smokes marijuana interm ittently to manage depression and anxiety Health Maintenance - Referral to welding process engineer for foot pain e valuation Review of Systems - Psychiatric: Denies suicidal or homici emma ideation - Musculoskeletal: Reports plantar foot pain - Respiratory: Denies shortness of breat h - Cardiovascular: Denies chest pain - Gastrointestinal: Denies abdominal michelle n Physical Exam General: Cooperative, healthy appearing, comfortable, no acute distress and well developed. Very tall ela with skinny stature. Orientation: Patient oriented x3 Limitations: No limitations Head: Normal to inspection Ears: Hearing grossly normal bilaterally Nose: Normal external nose present Face and sinus: Normal facial exam Eyes: Appearance normal, both eyes and all related structures Neck: Normal visual inspection and Yes full ROM Respiratory: Normal respiratory effort and able to speak in complete sentences. Clear to auscultation bilaterally Cardiovascular: Regular rate and rhythm. Normal S1 and S2 GI: Normal to inspection. Soft to palpation and nontender Skin: No rashes or lesions noted Neuro: Patient oriented x3 Extremities: Normal to inspection. Extremely high arches noted. Good dorsiflexion and plantar flexion against resistance without pain. Inversion and eversion of foot without discomfort. Results Plan 1. Anxiety The patient is stable but finds caring for his mother increasingly challenging, contributing to stress. He is seeking therapy and prefers not to use medi cations, although hydroxyzine is available for anxiety attacks as needed. 2. Depression The patient is managing depression with intermittent marijuana use, which he finds helpful. He denies suicidal ideation and is looking for a therapist. 3. Plantar Foot Pain The patient reports plantar foot pain with extremely high arches. He is referred to a welding process engineer for further evaluation and management. Discussion Notes During the visit, we discussed the patient's anxiety and depression management, emphasizing the importance of therapy and the option of using hydroxyzine for anxiety attacks. We also talked about the challenges of caring for his mother and the potential benefits of seeking additional support. For his plantar foot pain, I recommended a referral to a welding process engineer for further evaluation. We agreed on a follow-up in six months, during which I will review his progress and any new lab results. Patient Instructions - Consider therapy for anxiety and depre ssion management. - Use hydroxyzine as needed for anxiety attacks. - Follow up with a welding process engineer for foot p ain evaluation. - Plan for a follow-up visit in six [facility] Medical History Insect bite Hematemesis Epigastric abdominal pain Foraminal stenosis of lumbar region Degenerative thoracic spinal stenosis Bulging of cervical intervertebral disc Neuropathy, lumbosacral (radicular) Sensory neuropathy Numbness and tingling of left leg Scoliosis Fistula GERD (gastroesophageal reflux disease) Surgical History History of hip surgery Family History Mother Diabetes type 2, controlled Alzheimer's dementia FH: cholecystectomy Brother FH: cholecystectomy Social History Housing: House Patient Tobacco Use Status: Former Tobacco user Tobacco use type: Cigarette e-Cigarette/Vaping Use: Currently Using Second Hand Smoke Exposure: No Substance Use Type: Marijuana service: No Current occupational status: employed Cognitive needs: No Hearing needs: No Vision needs: No Questionnaire PHQ-9 Over the last 2 weeks, how often have you been bothered by any of the following problems? 41677 - PHQ-9 Billing: Patient declined-do not bill Source: Developed by Drs. Taurus Bishop, Angeles Azar, Wisam Pedraza and colleagues, with an educational sherine from [employer]. Thrive Questionnaire Date Thrive assessed: 02/05/25 I am a: Parent/Caregiver What is your living situation today?: I have a steady place to live Within the past 12 months, did the food you bought not last and you didn't have the money to get more?: Sometimes True Within the past 12 months, did you worry whether your food would run out before you got money to buy more?: Sometimes True Do you have trouble paying for medicines?: No Do you have trouble getting transportation to medical appointments?: No Do you have trouble paying your heating and electricity bill?: Yes Do you have trouble taking care of your child, family member or friend?: Yes Do you have trouble with day-to-day activities such as bathing, preparing meals, shopping, managing finances, etc.?: No Are you currently unemployed and looking for a job?: I choose not to answer this question Are you interested in more education?: No Please select the resources that you would like help with: None Currently or been in a relationship where the following occur: No concerns reported THRIVE Score: 3 CHARLOTTE-7 AMB Questionnaire CHARLOTTE-7 Date CHARLOTTE - 7 assessed: 02/10/25 Source: Developed by Drs. Taurus Bishop, Angeles Azar, Wisam Pedraza and colleagues, with an educational sherine from [employer]. Physical exam (Primary Care) Vital Signs: Last Vital Signs Pulse 52 08/11/25 11:18 Resp 16 08/11/25 11:18 BP 120/70 08/11/25 11:18 Pulse Ox 95 08/11/25 11:18 Oxygen Delivery Method Room Air 08/11/25 11:18 BMI result Body Mass Index 24.6 Tobacco/Smoking Status: Tobacco use Status Tobacco use date assessed 08/11/25 08/11/25 11:25 Patient Tobacco Use Status Former Tobacco user 08/11/25 11:25 Tobacco use type Cigarette 08/11/25 11:25 e-Cigarette/Vaping Use Currently Using 08/11/25 11:25 Thrive Assessment: Date of Thrive Assessment Date Thrive assessed 02/05/25 08/11/25 11:25 Currently or been in a relationship where the following occur: No concerns reported Coding Level of Care Code Est Pt Level 3 (28957) Diagnoses Bilateral foot pain M79.671; M79.672 Anxiety with depression F41.8 Vitamin D deficiency E55.9 Post-void dribbling N39.43 Skin lesion L98.9 Assessment & Plan Assessment & Plan (1) Bilateral foot pain: Code(s): M79.671 - Pain in right foot; M79.672 - Pain in left foot Category: Medical (2) Anxiety with depression: Code(s): F41.8 - Other specified anxiety disorders Category: Medical (3) Vitamin D deficiency: Code(s): E55.9 - Vitamin D deficiency, unspecified Category: Medical (4) Post-void dribbling: Code(s): N39.43 - Post-void dribbling Category: Medical (5) Skin lesion: Code(s): L98.9 - Disorder of the skin and subcutaneous tissue, unspecified Category: Medical Plan . Orders: Orders TSH reflex Free T4 Today F41.8 - Other specified anxiety disorders Lipid Panel Today F41.8 - Other specified anxiety disorders Prostate Specific Antigen Scr Today N39.43 - Post-void dribbling Complete Blood Count Auto Diff Today F41.8 - Other specified anxiety disorders Comprehensive [place]. Panel Fast Today F41.8 - Other specified anxiety disorders UA CC w/rflx Micro + Cult Today F41.8 - Other specified anxiety disorders Vitamin D 25-OH Total Today E55.9 - Vitamin D deficiency, unspecified Referrals Podiatry Referral M79.671 - Pain in right foot, M79.672 - Pain in left foot Dermatology Referral L98.9 - Disorder of the skin and subcutaneous tissue, unspecified
--- OUTSIDE RECORDS SUMMARY | 2025-08-11 14:27 | XMS_ITS | Encounter Summary ---
Author Organization [facility] Address [address] [place] [address] Phone Care Team Providers Care Staff Weapons Officer Name Role Phone Richy Stearns FARMWORKER MACHINE Primary Care Provider + Encounter Details Date Type Department Care Team (Late st Contact Info) Description 10/13/2024 Procedure Pass MRI, [facility] Imaging - [address], [address] [place] [id number] Social History Tobacco Use Types Packs/Day Years [...] as of this encounter Plan of Treatment Not on file documented as of this encounter Visit Diagnoses Not on filedocumented in this encounter Care Teams Staff Weapons Officer Relationship Specialty Start Date End Date Richy Stearns NP [address] [place] [id number] PCP - General Nurse Practitioner 09/01/24 documented as of this encounter Additional Source Comments The information contained in this document represents components of the legal health record. It is not the complete legal health record.[facility]
--- OUTSIDE RECORDS SUMMARY | 2025-08-11 14:27 | XMS_ITS | Encounter Summary ---
Author Organization [facility] Address [address] [place] [address] Phone Care Team Providers Care Ocean Rescue Lieutenant Name Role Phone Richy Stearns REEL MAN Primary Care Provider + Encounter Details Date Type Department Care Team (Late st Contact Info) Description 12/08/2024 Procedure Pass MRI, [facility] Imaging - [address], [address] [place] [id number] Social History Tobacco Use Types Packs/Day Years [...] on filedocumented in this encounter Care Teams Ocean Rescue Lieutenant Relationship Specialty Start Date End Date Richy Stearns NP [address] [place] [id number] PCP - General Nurse Practitioner 09/01/24 documented as of this encounter Additional Source Comments The information contained in this document represents components of the legal health record. It is not the complete legal health record.[facility]
--- OUTSIDE RECORDS SUMMARY | 2025-08-11 14:27 | XMS_ITS | Clinical Summary ---
Author Organization [facility] Address [address] [place] [address] Phone Care Team Providers Care Nanotechnology Engineering Technologist Name Role Phone Richy Stearns BUILDING CLEANER Primary Care Provider + Allergies No known active allergies Medications cetirizine (ZYRTEC) 10 MG tablet Take 1 tablet by mouth every morning. 4 Active fluticasone propionate (ALLERGY RELIEF, FLUTICASONE,) 50 mcg/actuation nasal spray 3 Active hydrOXYzine (ATARAX) 25 MG tablet 4 Active pantoprazole (PROTONIX) 20 MG tablet Take 20 mg by mouth daily. 5 Active nortriptyline (PAMELOR) 10 MG capsuleIndications :Lumbosacral radiculopathy Take 1 capsule (10 mg total) by mouth nightly at bedtime. 90 capsule 7 5 Active Encounters Date Type Department Care Team Description 07/20/2025 1:00 PM EDT Office Visit [facility] [place] [facility] Fiber Neuropathy [facility] [address], [address] [place] [address] Samantha Pastor CNP, DNP Small fiber neuropathy (Primary Dx) 06/29/2025 4:24 PM EDT - 06/29/2025 11:59 PM EDT Hospital Encounter [facility] LAB [address] [place] [address] Naveen Mercedes MD, MSc Discharge Disposition: Home or Self Care 06/29/2025 4:00 PM EDT Office Visit [facility] [place] Neurology Neuromuscular [address], [address] [place] [address] Naveen Mercedes MD, MSc Large fiber neuropathy (Primary Dx); Lumbosacral radiculopathy from Last 3 Months Social History Tobacco Use Types Packs/Day Years Used Date Smoking Tobacco: Some Days Cigarettes Smokeless Tobacco: Former Tobacco Cessation:Ready to Q uit: Not Asked; Counseling Given: Not Answered Education Answer Date Recorded Are you interested [...] Orientation Straight 09/01/2024 4: 50 PM EST Last Filed Vital Signs Vital Sign Reading Time Taken Comments Blood Pressure 117/76 07/20/2025 1:02 PM EDT Pulse 62 07/20/2025 1:02 PM EDT Temperature 36.6 C (97.8 F) 07/20/2025 1:02 PM EDT Respiratory Rate - - Oxygen Saturation 98% 07/20/2025 1:02 PM EDT Inhaled Oxygen Concentration - - Weight 100.7 kg (222 lb) 07/20/2025 1:02 PM EDT Height 198 cm (6' 5.95 ) 07/20/2025 1:02 PM EDT Body Mass Index 25.69 07/20/2025 1:02 PM EDT Plan of Treatment Health Maintenance Due Date Last Done Comments Adult Td,Tdap Booster 1981 LIPID PANEL 1981 DEPRESSION SCREENING 1993 SMOKING Hx and SMOKELESS TOBACCO SCREENING 1994 PNEUMOCOCCAL VACCINES (0-49 years) (1 of 2 - PCV) 2000 INFLUENZA VACCINE (#1) 2025 COVID-19 VACCINE (3 2024-2 6 season) 2025 03/16/2021, 02/22/2021 SCREENING FOR DIABETES 10/13/2027 10/13/2024 HEPATITIS C SCREENING Completed 10/13/2024 HIV ONE-TIME SCREENING (18-6 5 YEARS) Completed 10/13/2024 HEPATITIS A VACCINES Aged Out No long er eligible based on patient's age to complete this topic HIB VACCINES Aged Out No longer eligi ble based on patient's age to complete this topic MENINGOCOCCAL VACCINES (ACWY) Aged Out No longer eligible based on patient's age to complete this topic MENINGOCOCCAL VACCINES (B) Aged Out N o longer eligible based on patient's age to complete this topic Medical Devices Not on file Procedures Procedure Name Priority Date/Time Associated Diagnosis Comments [place] GENERIC ORDER, REFRIGERATE Routine 07/20/2025 1:15 PM EDT ANTI GLIADIN IGA ANTIBODY Routine 06/29/2025 5:15 PM EDT TISSUE TRANSGLUTAMINASE IGA Routine 06/29/2025 5:15 PM EDT Celiac antibodies Routine 06/29/2025 5:1 5 PM EDT Lumbosacral radiculopathy Large fiber neuropathy HEPATITIS C ANTIBODY, QUALITATIVE Routine 10/13/2024 9:40 AM EST Need for hepatitis C screening test from Last 3 Months or Most Recently Relevant to Health Maintenance Results * [place] GENERIC ORDER, REFRIGERATE (07/20/2025 1:15 PM EDT) [place] Order ID [id number] Generic Order Result, Refrigerate SEE NOTE 08/03/20 01:06 PM [facility] DPT OF LAB MED AND PAT+ Comment: (NOTE) Test Result Flag Unit RefValue Epidermal Nerve Fiber Density Interpretation SEE NOTE Diagnosis: A. Left Distal Leg 1. Epidermal Nerve Fibers (PGP 9.5 Immunohistochemistry Analysis): Borderline density. 2. Interstitial: No significant abnormalities noted. Congo red stained sections are negative for amyloid. B. Left Mid Thigh 1. Epidermal Nerve Fibers (PGP 9.5 Immunohistochemistry Analysis): Normal density. 2. Interstitial: No significant abnormalities noted. Congo red stained sections are negative for amyloid. Skin Biopsy - Epidermal Nerve Fibers/mm Evaluation Interpretation: Borderline epidermal nerve fiber density in the left distal leg and normal epidermal nerve fiber density in the left mid thigh. There is a borderline reduced epidermal nerve fiber density. This may be normal or could be in keeping with an early small fiber neuropathy or mild sensory neuropathy in the appropriate clinical setting. Clinical correlation is advised. Congo red stained sections are negative for amyloid. H and E and Congo red immunohistochemistry preparations were performed on blocks A and B. PGP 9.5 immunohistochemistry preparations were performed on blocks A and B. All samples were reviewed. Results: A. Left Distal Leg 1. Epidermal Nerve Fibers/1-mm length of 0.05-mm sections: Mean 3.5; 95% Cls 2.6, 4.7. The estimated 1st percentile value of site, age, and gender is 3.4. For 5th percentile, it is 4.0. 2. Interstitial: No significant abnormalities noted. Congo red stained sections are negative for amyloid. B. Left Mid Thigh 1. Epidermal Nerve Fibers/1-mm length of 0.05-mm sections: Mean 10.6; 95% Cls 9.0, 12.4. The estimated 1st percentile value of site, age, and gender is 5.1. For 5th percentile, it is 6.1. 2. Interstitial: No significant abnormalities noted. Congo red stained sections are negative for amyloid. Participated in the Interpretation Zoya Shea M.D. Report electronically signed by SEE ZONIA Beck M.D. I verify that I have examined all relevant slides/materials for the specimen(s) and rendered or confirmed the diagnosis. Gross Description SEE NOTE A. Skin punch biopsy designated as left distal leg is received in cryoprotectant measuring 0.3 cm x 0.3 cm. Specimen is cut and reacted with PGP 9.5. The remainder of the specimen is embedded into paraffin and is cut and stained with Xu and Congo red. B. Skin punch biopsy designated as left mid thigh is received in cryoprotectant measuring 0.3 cm x 0.3 cm. Specimen is cut and reacted with PGP 9.5. The remainder of the specimen is embedded into paraffin and is cut and stained with Xu and Congo red. Grossed by Cristal Peterson Material Received SEE NOTE A. : Left Distal Leg B. : Left Mid Thigh Case Number RESULT: [id number] Disclaimer SEE NOTE This test was developed and its performance characteristics determined by [facility] in a manner consistent with CLIA requirements. This test has not been cleared or approved by the U.S. Food and Drug Administration. 07/20/2025 1:15 PM EDT 07/21/2025 8:10 AM EDT us Smaantha Pastor MORTGAGE BANKER, DNP LAB BLOOD ORD ERABLES Final Result [facility] DPT OF LAB MED AND PAT+ [address] [place], [place] [id number] [place] [id number] * Celiac Screening Test Panel (06/29/2025 5:15 PM EDT) IgA 183 69 - 309 mg/dL [facility] CELIAC INTERPRETATION Serologic markers for celiac disease are useful in: [facility] Comment: 1. Supporting the diagnosis of celiac disease 2. Screening first-degree relatives of patients with celiac disease 3. Monitoring the adherence and response to a gluten-free diet. NEGATIVE serological tests in subjects with clinical features suggestive of celiac disease have been noted in 1. Individuals already on a low gluten diet 2. Those with a serum IgA of <7mg/dL 3. Those with other causes of villous atrophy 1. Reassessing serological markers after a period of gluten consumption and/or performing a small bowel biopsy for histological evidence are alternative approaches. 2. Testing for HLADQ2 and DQ8 may be helpful to exclude celiac disease as 99% of patients with celiac disease have these haplotypes as compared to 40% of general population. 06/29/2025 5:15 PM EDT 06/29/2025 5:20 PM EDT Naveen Mercedes MD, MSc LAB BLOOD ORDERABLES Final Result [address] [address] * ANTI GLIADIN IGA ANTIBODY (06/29/2025 5:15 PM EDT) Deamidated Gliadin Antibody IGA 3.41 0 - 19 CU [facility] Comment:Negative 06/29/2025 5:15 PM EDT 06/29/2025 5:20 PM EDT Result [facility] Naveen Mercedes MD, MSc LAB BLOOD ORDERABLES Final Result Performing Organization Address [facility] Co de Phone Number [address] [address] * Tissue transglutaminase IgA (06/29/2025 5:15 PM EDT) ANTI TTG IGA AB <1.23 0.00 - 3.99 U/mL [facility] Comment:Negative 06/29/2025 5:15 PM EDT 06/29/2025 5:20 PM EDT Result [facility] Naveen Mercedes MD, MSc LAB BLOOD ORDERABLES Final Result Performing Organization Address [facility] Co de Phone Number [address] [address] * Hepatitis C antibody, qualitative (10/13/2024 9:40 AM EST) HCV ANTIBODY Negative Negative [facility] Comment:Antibodies to HCV no t detected. Does not exclude the possibility of exposure to HCV. 10/13/2024 9:40 AM EST 10/13/2024 1:40 PM EST Result [facility] Naveen Mercedes MD, MSc LAB BLOOD ORDERABLES Final Result Performing Organization Address City/[facility]/ZIP Co de Phone Number [address] [address] from Last 3 Months or Most Recently Relevant to Health Maintenance [place] [address] [place] [address] [place] [address] [place] [address] [place] [address] [place] [address] [place] [address] [place] [address] [place] [address] A[employer] Care Teams Nanotechnology Engineering Technologist Relationship Specialty Start Date End Date Richy Stearns NP [address] [place] [address] PCP - General Nurse Practitioner 09/01/24 Additional Source Comments The information contained in this document represents components of the legal health record. It is not the complete legal health record.[facility]
--- OUTSIDE RECORDS SUMMARY | 2025-08-11 14:27 | XMS_ITS | Encounter Summary ---
Author Organization [facility] Address [address] [facility] [address] [place] [phone] Phone Care Team Providers Care Curator Horticultural Museum Name Role Phone Richy Stearns PRODUCTION FLOATER Primary Care Provider + Encounter Details Date Type Department Care Team (Late st Contact Info) Description 10/13/2024 Procedure Pass MRI, [facility] Imaging - [address], [address] [place] [phone] Social History Tobacco Use Types Packs/Day Years [...] on filedocumented in this encounter Care Teams Curator Horticultural Museum Relationship Specialty Start Date End Date Richy Stearns NP [address] [place] [phone] PCP - General Nurse Practitioner 09/01/24 documented as of this encounter Additional Source Comments The information contained in this document represents components of the legal health record. It is not the complete legal health record.[facility]
--- OUTSIDE RECORDS SUMMARY | 2025-08-11 14:27 | XMS_ITS | Encounter Summary ---
Author Organization [facility] Address [address] [facility] [address] [place] [phone] Phone Care Team Providers Care Stage Electrician Helper Name Role Phone Richy Stearns PROFILING MACHINE SETUP OPERATOR Primary Care Provider + Encounter Details Date Type Department Care Team (Late st Contact Info) Description 12/08/2024 Procedure Pass MRI, [facility] Imaging - [address], [address] [place] [phone] Social History Tobacco Use Types Packs/Day Years [...] on filedocumented in this encounter Care Teams Stage Electrician Helper Relationship Specialty Start Date End Date Richy Stearns NP [address] [place] [phone] PCP - General Nurse Practitioner 09/01/24 documented as of this encounter Additional Source Comments The information contained in this document represents components of the legal health record. It is not the complete legal health record.[facility]
== END 2025-08-11 12:13 | disposition home or self-care (01) ==
LOC: HO.HMCC 11:17
PROVIDERS: PCP Nurse Practitioner Family; Visit Provider Nurse Practitioner Family
DX: M79.671 Pain in right foot (principal); M79.672 Pain in left foot; F41.8 Other specified anxiety disorders; E55.9 Vitamin D deficiency, unspecified; N39.43 Post-void dribbling; L98.9 Disorder of the skin and subcutaneous tissue, unspecified

== ENCOUNTER → 2025-08-11 11:16 | Outpatient (BNVA) | payer OTHER, SELFPAY | PROVIDERS: PCP Nurse Practitioner Family; Visit Provider Nurse Practitioner Family | DX: M79.671 Pain in right foot (principal); M79.672 Pain in left foot; F41.8 Other specified anxiety disorders; E55.9 Vitamin D deficiency, unspecified; N39.43 Post-void dribbling; L98.9 Disorder of the skin and subcutaneous tissue, unspecified | CPT/HCPCS: 99212 ==

== ENCOUNTER 2025-09-02 12:56 | Outpatient (AMB) | payer OTHER, SELFPAY ==
--- NOTE | 2025-09-02 13:03 | A.OFFVIS_ITS ---
Vital Signs 09/02/25 13:12 Height 6 ft 6 in Weight 223 lb BMI 25.8 BP 132/74 Blood Pressure Location Rt brachial Position Sitting Pulse 76 Pulse Source Pulse Oximeter Pulse Oximetry (%) 97 Oxygen Delivery Method Room Air Intake Visit Reasons: 3m Intake Note: Patient 3 months follow up for Hematemesis and US results. Patient cc: C.O. persistence of chronic sx since last visit. Pt wanted to make sure we had reviewed his previous [facility] Health Notes and his recent US as they are pertinent to this visit. New Car Make Ready Mechanic Required: No Accompanied by: Self / Same As Patient Allergies No Known Allergies Allergy (Verified 09/02/25 13:04) HPI HPI 3m: Details: Patient is a 44-year-old male with PMH of anxiety and depression, nicotine dependence, neuropathy demyelinating and GERD. F/u for Hematemesis, epigastric pain Pt reports completing parentoprazole taper; now off for several days with mild withdrawal sxs that resolved. No further episodes of hematemesis since initial episode. Occasional epigastric pressure after certain meals (noted after high- acid/red sauce pasta), otherwise resolution of prior intermittent epigastric discomfort. Ongoing daily loose stools x >1 yr, described as frequent, not frankly diarrheal but consistently soft, with variable stool form, sometimes multiple small pieces and discolored water. No periods of sustained normalization; more prominent since 2023. Denies significant abdominal pain, fever, or n/v. Recent meal-triggered transient irritation noted. Occasional scant blood on toilet paper; has hx int. hemorrhoids. No recent wt loss (220 lbs), no anemia sxs. Diet includes significant fruits/roughage, considering increased fiber via food or supplement.. 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 No recent abx or hospitalization. No compliance barriers noted. [facility] Medical History (Updated 09/02/25 @ 14:08 by Kelly Mclean CNP) Loose stools Insect bite Hematemesis Epigastric abdominal pain Foraminal stenosis of lumbar region Degenerative thoracic spinal stenosis Bulging of cervical intervertebral disc Neuropathy, lumbosacral (radicular) Sensory neuropathy Numbness and tingling of left leg Scoliosis Fistula GERD (gastroesophageal reflux disease) Surgical History (Updated 09/02/25 @ 14:11 by Kelly Mclean CNP) History of rectal surgery History of hip surgery Family History Mother Diabetes type 2, controlled Alzheimer's dementia FH: cholecystectomy Brother FH: cholecystectomy Social History Housing: House Patient Tobacco Use Status: Former Tobacco user Tobacco use type: Cigarette e-Cigarette/Vaping Use: Currently Using Second Hand Smoke Exposure: No Substance Use Type: Marijuana service: No Current occupational status: employed Cognitive needs: No Hearing needs: No Vision needs: No Review of Systems Const Reports as per HPI ENT Reports as per HPI Card Reports as per HPI Resp Reports as per HPI GI Reports as per HPI Reports as per HPI Physical Exam Vital Signs: BMI result Body Mass Index 25.8 Const General: healthy appearing, no acute distress and well developed Nutritional Appearance: average body habitus Orientation/consciousness: patient oriented x3 HEENT Head: Yes normal to inspection, Yes normocephalic and Yes atraumatic Face and sinus: Yes normal facial exam Eyes General: appearance normal, both eyes and all related structures Neck Neck: Yes normal visual inspection Resp Effort & Inspection: normal respiratory effort, able to speak in complete sentences, no tracheal deviation and symmetric chest movement Auscultation: clear to auscultation bilaterally Cardio Jugular venous distension: no JVD Rate: regular rate Rhythm: regular rhythm Heart sounds: S1 normal heart sound present, S2 normal heart sound present, no gallops and no murmurs GI Rectal Exam - Male: Yes visual inspection normal, Yes normal sphincter tone, No Lesions present (GI), No Laceration(s) present (GI), No Excoriation present (GI), No fecal impaction, No Anal fissure(s) present, No hemorrhoids, No mass and No tenderness Neuro General: patient oriented x3 Gait exam (Neuro): Normal gait present Psych Appearance: grossly normal Mental Status: mental status grossly normal Speech and movement: Normal speech and movement present Affect: Anxious affect present Attitude: cooperative Thought process: Normal thought process present Thought content: Normal thought content present Insight: Good insight present (Psych) Judgement: Good judgement present (Psych) Assessment & Plan Assessment & Plan (1) Loose stools: Comment: 01/07/23 colonoscopy pathology report (scanned)-normal colon mucosa to TI. Code(s): R19.5 - Other fecal abnormalities Category: Medical Plan: Some uncertainty regarding exact onset and pattern of bowel changes( previously reported normal stool pattern). Stable, persistent, mild-moderate daily loose stools, no other GI alarm features. Non-progressive; no systemic findings. Colonoscopy 12/2022 NL?no evidence of IBD, microscopic colitis, or neoplasm at that time, supporting low suspicion for organic pathology. Additional Testing: - Stool studies x3 (O&P, culture, C. diff): r/o infectious process. - FOBT: r/o occult GI bleeding. - Celiac serology: r/o gluten sensitivity. - Food allergy panel. - Consistently normal CBC, LFTs, TSH. Repeat labs trending for anemia, metabolic/absorptive or hormonal causes (pending PCP labs). Medications: None initiated at this time. D/C parentoprazole per symptom resolution. Lifestyle Recommendations: - Maintain hydration, balanced diet; focus on whole-form fiber (fruits, veg, grains). - Avoid excessive fiber gummies/chews; may consider psyllium powder/tab if dietary changes insufficient. - Monitor for meal triggers, especially high-acid or red sauce foods. - Continue bidet use for hygiene. - Provide diet/soluble fiber education; discussed dietary fiber handouts. Referrals / Coordination of Care: - Continue with colorectal surgery for any perianal/rectal needs (perianal fistula hx, hemorrhoid mgmt). Follow-Up Plan: - F/u in 8 wks, or sooner if alarm sxs; reassess after stool/lab/tsh/allergy results. Track stool pattern/sx diary if able. (2) Epigastric abdominal pain: Code(s): R10.13 - Epigastric pain Category: Medical Plan: No active reflux or significant epigastric pain; rare, meal-related transient symptoms. Barium swallow showed only small sliding HH; sx now resolved, pt off PPI without return of sxs. Additional testing: None required unless sx recur. Medications: Off parentoprazole; remain off unless new sx. Lifestyle Recommendations: Avoid large/acidy meals if triggering; maintain upright position after eating; reassured likely benign course. Referrals / Coordination of Care: None indicated. Follow-Up Plan: Monitor; report any new/progressive sx. Plan Follow-up 8 weeks or sooner as needed Time: I spent a total of 40 minutes on the date of encounter which includes: Preparing to see the patient (reviewed previous documentation, test results and medical history) Performing a medically appropriate exam and/or evaluation Ordering medications, tests, and procedures Documenting clinical information in the health record Coding Level of Care Code Established Pt Est Pt Level 4 (63902) Patient Type Established Diagnoses Loose stools R19.5 Epigastric abdominal pain R10.13
[2025-09-02 13:12] VITALS: BP 132/74; PULSE 76; O2SAT 97; BMI 25.8
--- OUTSIDE RECORDS SUMMARY | 2025-09-02 15:07 | XMS_ITS | Clinical Summary ---
Author Organization [facility] Address [address] [place] [address] Phone Care Team Providers Care Car Repairer Name Role Phone Richy Stearns WEB SITE DESIGNER Primary Care Provider + Allergies No known [...] Description 07/20/2025 1:00 PM EDT Office Visit [facility] [address] [facility], 8th [address], [address] [place] [address] Samantha Pastor CNP, DNP Small fiber neuropathy (Primary Dx) 06/29/2025 4:24 PM EDT - 06/29/2025 11:59 PM EDT Hospital Encounter [facility] [place] [address] Naveen Mercedes MD, MSc Discharge Disposition: Home or Self Care 06/29/2025 4:00 PM EDT Office Visit [facility] Neurology Neuromuscular [address], [address] [place] [address] Naveen Mercedes MD, MSc Large fiber neuropathy [...] INFLUENZA VACCINE (#1) 2025 COVID-19 VACCINE (3 - 2024-2 6 season) 2025 03/16/2021, 02/22/2021 SCREENING FOR DIABETES 10/13/2027 10/13/2024 HEPATITIS C SCREENING Completed 10/13/2024 HIV ONE-TIME SCREENING (18-6 5 YEARS) Completed 10/13/2024 HEPATITIS A VACCINES Aged Out No long er eligible based on patient's age to complete this topic HIB VACCINES Aged Out No longer eligi ble based on patient's age to complete this topic IPV VACCINES Aged Out No longer eligi ble based on patient's age to complete this topic MENINGOCOCCAL VACCINES (ACWY) Aged Out No longer eligible based on patient's age to complete this topic MENINGOCOCCAL VACCINES (B) Aged Out N o longer eligible based on patient's age to complete this topic Medical Devices Not on file Procedures Procedure Name Priority Date/Time Associated Diagnosis Comments [facility] GENERIC ORDER, REFRIGERATE Routine 07/20/2025 1:15 PM [...] Recently Relevant to Health Maintenance Results * [facility] GENERIC ORDER, REFRIGERATE (07/20/2025 1:15 PM EDT) [place] Order ID [id number] Generic Order Result, Refrigerate SEE NOTE 08/03/20 01:06 PM [facility] DPT OF LAB MED AND PAT+ Comment: [...] developed and its performance characteristics determined by [facility] in a manner consistent with CLIA requirements. This test has not been cleared or approved by the U.S. Food and Drug Administration. 07/20/2025 1:15 PM EDT 07/21/2025 8:10 AM EDT us Samantha Pastor CAREER DEVELOPMENT ENGINEER, DNP LAB BLOOD BKR ORDERABLES Final Result [facility] DPT OF LAB MED AND PAT+ [address] [place] [place] [address] [address] * Celiac Screening Test Panel (06/29/2025 5:15 PM EDT) IgA 183 69 - 309 mg/dL [facility] CELIAC INTERPRETATION Serologic markers for celiac disease are useful in: [facility] Comment: 1. Supporting the diagnosis of [...] BLOOD ORDERABLES Final Result Performing Organization Address [facility] Co de Phone Number [address] [phone] * ANTI GLIADIN IGA ANTIBODY (06/29/2025 5:15 PM EDT) Deamidated Gliadin Antibody IGA 3.41 0 - 19 CU [facility] Comment:Negative 06/29/2025 5:15 PM EDT 06/29/2025 5:20 PM EDT Result [facility] Naveen Mercedes MD, MSc LAB BLOOD ORDERABLES Final Result Performing Organization Address [facility] Co de Phone Number [address] [phone] * Tissue transglutaminase IgA (06/29/2025 5:15 PM EDT) ANTI TTG IGA AB <1.23 0.00 - 3.99 U/mL [facility] Comment:Negative 06/29/2025 5:15 PM EDT 06/29/2025 5:20 PM EDT Result [facility] Naveen Mercedes MD, MSc LAB BLOOD BKR ORDERABLES Fi nal Result Performing Organization Address [facility] Co de Phone Number [address] [address] * Hepatitis C antibody, qualitative (10/13/2024 9:40 AM EST) HCV ANTIBODY Negative Negative [facility] Comment:Antibodies to HCV no t detected. Does not exclude the possibility of exposure to HCV. 10/13/2024 9:40 AM EST 10/13/2024 1:40 PM EST Result [facility] Naveen Mercedes MD, MSc LAB BLOOD BKR ORDERABLES Fi nal Result Performing Organization Address [facility] Co de Phone Number [address] [address] from Last 3 Months or Most Recently Relevant to Health Maintenance Insurance [place] [place] [address] [place] [address] [place] [address] [place] [address] [place] [address] [place] [address] [place] [place] [address] ACO Care Teams Car Repairer Relationship Specialty Start Date End Date Richy Stearns NP [address] [facility] [place] [address] PCP - General Nurse Practitioner 09/01/24 Additional Source Comments The information contained in this document represents components of the legal health record. It is not the complete legal health record.[facility]
--- OUTSIDE RECORDS SUMMARY | 2025-09-02 15:07 | XMS_ITS | Encounter Summary ---
Author Organization [facility] Address [address] [facility] [address] [place] [phone] Phone Care Team Providers Care Movie Theater Usher Name Role Phone Richy Stearns SUPPORT DIRECTOR Primary Care Provider + Encounter Details Date Type Department Care Team (Late st Contact Info) Description 12/08/2024 Procedure Pass MRI, [facility] Imaging - [address], [address] [place] [phone] Social History Tobacco Use Types Packs/Day Years [...] on filedocumented in this encounter Care Teams Movie Theater Usher Relationship Specialty Start Date End Date Richy Stearns NP [address] [place] [phone] PCP - General Nurse Practitioner 09/01/24 documented as of this encounter Additional Source Comments The information contained in this document represents components of the legal health record. It is not the complete legal health record.[facility]
--- OUTSIDE RECORDS SUMMARY | 2025-09-02 15:07 | XMS_ITS | Encounter Summary ---
Author Organization [facility] Address [address] [facility] [address] [place] [address] Phone Care Team Providers Care Rubber Cutter Name Role Phone Richy Stearns DIFFERENTIAL SPECIALIST Primary Care Provider + Encounter Details Date Type Department Care Team (Late st Contact Info) Description 12/08/2024 Procedure Pass MRI, [facility] Imaging - [address], [address] [place] [phone] Social History Tobacco Use Types Packs/Day Years [...] on filedocumented in this encounter Care Teams Rubber Cutter Relationship Specialty Start Date End Date Richy Stearns NP [address] [facility] [address] [place] [phone] PCP - General Nurse Practitioner 09/01/24 documented as of this encounter Additional Source Comments The information contained in this document represents components of the legal health record. It is not the complete legal health record.[facility]
--- OUTSIDE RECORDS SUMMARY | 2025-09-02 15:07 | XMS_ITS | Encounter Summary ---
Author Organization [facility] Address [address] [facility] [address] [place] [address] Phone Care Team Providers Care Classer Name Role Phone Richy Stearns MERCHANDISE APPRAISER Primary Care Provider + Encounter Details Date Type Department Care Team (Late st Contact Info) Description 10/13/2024 Procedure Pass MRI, [facility] Imaging - [address], [address] [place] [phone] Social History Tobacco Use Types Packs/Day Years [...] on filedocumented in this encounter Care Teams Classer Relationship Specialty Start Date End Date Richy Stearns NP [address] [facility] [address] [place] [phone] PCP - General Nurse Practitioner 09/01/24 documented as of this encounter Additional Source Comments The information contained in this document represents components of the legal health record. It is not the complete legal health record.[facility]
--- OUTSIDE RECORDS SUMMARY | 2025-09-02 15:07 | XMS_ITS | Encounter Summary ---
Author Organization [facility] Address [address] [facility] [address] [place] [phone] Phone Care Team Providers Care Retail Coverage Merchandiser Lead Name Role Phone Richy Stearns IRON CUTTER Primary Care Provider + Encounter Details Date Type Department Care Team (Late st Contact Info) Description 10/13/2024 Procedure Pass MRI, [facility] Imaging - [address], [address] [place] [phone] Social History Tobacco Use Types Packs/Day Years [...] on filedocumented in this encounter Care Teams Retail Coverage Merchandiser Lead Relationship Specialty Start Date End Date Richy Stearns NP [address] [facility] [address] [place] [phone] PCP - General Nurse Practitioner 09/01/24 documented as of this encounter Additional Source Comments The information contained in this document represents components of the legal health record. It is not the complete legal health record.[facility]
== END 2025-09-02 13:49 | disposition home or self-care (01) ==
LOC: HO.HGI 12:56
PROVIDERS: PCP Nurse Practitioner Family; Visit Provider Nurse Practitioner Family
DX: R19.5 Other fecal abnormalities (principal); R10.13 Epigastric pain
CPT/HCPCS: 99214

== ENCOUNTER → 2025-09-02 12:56 | Outpatient (BNVA) | payer OTHER, SELFPAY | PROVIDERS: PCP Nurse Practitioner Family; Visit Provider Nurse Practitioner Family | DX: R19.5 Other fecal abnormalities (principal); R10.13 Epigastric pain | CPT/HCPCS: 99212 ==

== ENCOUNTER 2025-09-06 12:56 | Outpatient (AMB) | payer OTHER, SELFPAY ==
[2025-09-06 13:06] VITALS: BMI 26.0
--- NOTE | 2025-09-06 13:06 | A.OFFVIS_ITS ---
Vital Signs 09/06/25 13:06 Height 6 ft 6 in Weight 225 lb BMI 26.0 Intake Visit Reasons: High arches,toe issues Intake Note: Trent is a 44 year old male who presents today as a new patient for an evaluation of his bilateral high arches and toe issues. Patient states the high arches has been going on for a long period of time and he reports trying insoles and has found no relief for his time. He mentions he is currently diagnosed with neuropathy and his right leg is a quarter inch shorter then his left. Allergies No Known Allergies Allergy (Verified 09/06/25 13:09) HPI HPI High arches,toe issues: Details: The patient is a 44-year-old male past medical history of lumbar and cervical pain, and bilateral peripheral neuropathy left worse than right. The patient reports a limb length discrepancy that occurred after hip surgery at age 11. He has not worn a heel lift in a long time. He believes this further worsened his scoliosis. 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 The patient experiences neuropathy characterized by numbness, tingling, and occasional burning pain, initially presenting with shooting pain upon pressure. He has undergone extensive diagnostic testing, including MRI spine, multiple nerve conduction studies, and left leg nerve biopsy, which revealed spinal stenosis and scoliosis but no severe compression. He was seen at [facility] and received multiple tests, which he states were all noted to be normal. [facility] Medical History (Updated 09/06/25 @ 16:16 by Salty Gonzalez DPM) Loose stools Insect bite Hematemesis Epigastric abdominal pain Foraminal stenosis of lumbar region Degenerative thoracic spinal stenosis Bulging of cervical intervertebral disc Neuropathy, lumbosacral (radicular) Sensory neuropathy Numbness and tingling of left leg Scoliosis Fistula GERD (gastroesophageal reflux disease) Surgical History (Updated 09/02/25 @ 14:11 by Kelly Mclean CNP) History of rectal surgery History of hip surgery Family History Mother Diabetes type 2, controlled Alzheimer's dementia FH: cholecystectomy Brother FH: cholecystectomy Social History Housing: House Patient Tobacco Use Status: Former Tobacco user Tobacco use type: Cigarette e-Cigarette/Vaping Use: Currently Using Second Hand Smoke Exposure: No Substance Use Type: Marijuana service: No Current occupational status: employed Cognitive needs: No Hearing needs: No Vision needs: No Review of Systems Const All systems reviewed & are unremarkable except as noted in HPI and below Physical Exam Vital Signs: BMI result Body Mass Index 26.0 Extrem Other: *Bilateral Lower Extremity Focused Exam Vascular: DP/PT 2/4, CFT less than 3 seconds all digits, temperature gradient warm to cool. No pedal edema. Derm: Hyperkeratotic lesions plantar aspect of the 1st and 5th metatarsal and heels bilaterally. Hyperkeratotic lesion to the distal aspect of the 2nd digit bilaterally and left 4th digit tuft. Neuro: Negative Tinel sign to the left ankle. MSK: Semi rigid high arch deformity, mild flexion deformity bilateral feet digits 2 and 3, adductovarus deformity of 4th and 5th digits bilaterally. Neutral heel alignment on weight-bearing. Gait pattern is within normal limits. Equal and symmetric strides Assessment & Plan Assessment & Plan (1) Lower limb length difference: Code(s): M21.70 - Unequal limb length (acquired), unspecified site Category: Medical Plan: * Referred for bone length study * We will likely recommend heel lift for the right lower extremity pending results. The goals decreased global compensation by realigning his limb length discrepancy. (2) Numbness and tingling of left leg: Comment: EMG c/w chronic neuropathy ? he is hyperreflexic in LE Code(s): R20.0 - Anesthesia of skin; R20.2 - Paresthesia of skin Category: Medical Plan: * Unclear etiology. The patient states he has had multiple testing including EMG NCV studies. * Given his history of spinal stenosis, he was recommended pursuing treatment with a spine surgeon (3) Cavus deformity of both feet: Code(s): Q66.71 - Congenital pes cavus, right foot; Q66.72 - Congenital pes cavus, left foot Category: Medical Plan: * Educated the patient on their foot type. Explained that their high arch foot type (Cavus feet) can lead to altered weight distribution, resulting in increased pressure on the heel and forefoot. Patients may experience symptoms such as pain, callus formation, tendinitis, instability, lateral ankle sprains, and, in some cases, development of digital deformities (e.g., claw toes or hammertoes). Discussed the importance of shoe type with heel and f orefoot padding and support.. (4) Acquired hammertoes of both feet: Code(s): M20.41 - Other hammer toe(s) (acquired), right foot; M20.42 - Other hammer toe(s) (acquired), left foot Category: Medical Plan: * Recommended crest pad * Discussed possible surgical correction in his future if he develops worsening pain symptoms. (5) Callus of heel: Code(s): L84 - Corns and callosities Category: Medical Plan: * Rx urea cream Orders: Orders XR Calcaneus Silvio min 2V Today Q66.71 - Congenital pes cavus, right foot, Q66.72 - Congenital pes cavus, left foot XR bone length study Today M21.70 - Unequal limb length (acquired), unspecified site XR Foot Silvio 3V Today M77.41 - Metatarsalgia, right foot, M77.42 - Metatarsalgia, left foot, Q66.71 - Congenital pes cavus, right foot, Q66.72 - Congenital pes cavus, left foot Medications: New urea 20% 1 appl topical BID 85 grams 3RF xerosis Coding Level of Care Code New Pt Level 4 (05576) Diagnoses Lower limb length difference M21.70 Numbness and tingling of left leg R20.0; R20.2 Cavus deformity of both feet Q66.71; Q66.72 Acquired hammertoes of both feet M20.41; M20.42 Callus of heel L84 Time Spent (min) 45
--- OUTSIDE RECORDS SUMMARY | 2025-09-06 14:40 | XMS_ITS | Encounter Summary ---
Author Organization [facility] Address [address] [place] [address] Phone Care Team Providers Care Community Assistant Name Role Phone Richy Stearns RETAIL AND PROMOTIONS COORDINATOR Primary Care Provider + Encounter Details Date Type Department Care Team (Late st Contact Info) Description 10/13/2024 Procedure Pass MRI, [facility] Imaging - [address], [address] [place] [phone] Social History Tobacco Use Types Packs/Day Years [...] on filedocumented in this encounter Care Teams Community Assistant Relationship Specialty Start Date End Date Richy Stearns NP [address] [place] [phone] PCP - General Nurse Practitioner 09/01/24 documented as of this encounter Additional Source Comments The information contained in this document represents components of the legal health record. It is not the complete legal health record.[facility]
--- OUTSIDE RECORDS SUMMARY | 2025-09-06 14:40 | XMS_ITS | Encounter Summary ---
Author Organization [facility] Address [address] [facility] [address] [place] [address] Phone Care Team Providers Care Graffiti Cleaner Name Role Phone Richy Stearns AVID EDITOR Primary Care Provider + Encounter Details Date Type Department Care Team (Late st Contact Info) Description 10/13/2024 Procedure Pass MRI, [facility] Imaging - [address], [address] [place] [phone] Social History Tobacco Use Types Packs/Day Years [...] on filedocumented in this encounter Care Teams Graffiti Cleaner Relationship Specialty Start Date End Date Richy Stearns NP [address] [facility] [address] [place] [id number] PCP - General Nurse Practitioner 09/01/24 documented as of this encounter Additional Source Comments The information contained in this document represents components of the legal health record. It is not the complete legal health record.[facility]
--- OUTSIDE RECORDS SUMMARY | 2025-09-06 14:41 | XMS_ITS | Encounter Summary ---
Author Organization [facility] Address [address] [facility] [address] [place] [address] Phone Care Team Providers Care Center Medical And Lab Director Name Role Phone Richy Stearns HEALTH CENTER ASSOCIATE Primary Care Provider + Encounter Details Date Type Department Care Team (Late st Contact Info) Description 12/08/2024 Procedure Pass MRI, [facility] Imaging - [address], [address] [place] [phone] Social History Tobacco Use Types Packs/Day Years [...] on filedocumented in this encounter Care Teams Center Medical And Lab Director Relationship Specialty Start Date End Date Richy Stearns NP [address] [facility] [address] [facility] [address] [place] [phone] PCP - General Nurse Practitioner 09/01/24 documented as of this encounter Additional Source Comments The information contained in this document represents components of the legal health record. It is not the complete legal health record.[facility]
--- OUTSIDE RECORDS SUMMARY | 2025-09-06 14:41 | XMS_ITS | Clinical Summary ---
Author Organization [facility] Address [address] [place] [address] Phone Care Team Providers Care Dining Room Busser Name Role Phone Richy Stearns BRIQUETTE MAKER Primary Care Provider + Allergies No known [...] Description 07/20/2025 1:00 PM EDT Office Visit [facility] Small Fiber Neurop[facility] [address] [facility], 8th Floor, [address] [place] [address] Samantha Pastor CNP, DNP Small fiber neuropathy (Primary Dx) 06/29/2025 4:24 PM EDT - 06/29/2025 11:59 PM EDT Hospital Encounter [facility] [place] [address] Naveen Mercedes MD, MSc Discharge Disposition: Home or Self Care 06/29/2025 4:00 PM EDT Office Visit [facility] Neurology Neuromuscular [address], [address] [place] [address] Naveen Mercedes MD, MSc Large fiber neuropathy [...] Procedure Name Priority Date/Time Associated Diagnosis Comments [place] GENERIC ORDER, REFRIGERATE Routine 07/20/2025 1:15 PM [...] Recently Relevant to Health Maintenance Results * [place] GENERIC ORDER, REFRIGERATE (07/20/2025 1:15 PM EDT) [place] Order ID [id number] [facility] Generic Order Result, Refrigerate SEE NOTE 08/03/20 01:06 PM [facility] DPT OF LAB MED AND PAT+ Comment: [...] developed and its performance characteristics determined by [facility] in a manner consistent with CLIA requirements. This test has not been cleared or approved by the U.S. Food and Drug Administration. 07/20/2025 1:15 PM EDT 07/21/2025 8:10 AM EDT us Samantha Pastor REGULATORY SUBMISSIONS SPECIALIST, DNP LAB BLOOD BKR ORDERABLES Final Result [facility] DPT OF LAB MED AND PAT+ [address] [place] [address] [address] * Celiac Screening Test Panel (06/29/2025 5:15 PM EDT) IgA 183 69 - 309 mg/dL [facility] CELIAC INTERPRETATION Serologic markers for celiac disease are useful in: [facility] Comment: 1. Supporting the diagnosis of [...] BLOOD ORDERABLES Final Result Performing Organization Address City/[facility] Co de Phone Number [address] [address] * ANTI GLIADIN IGA ANTIBODY (06/29/2025 5:15 PM EDT) Deamidated Gliadin Antibody IGA 3.41 0 - 19 CU [facility] Comment:Negative 06/29/2025 5:15 PM EDT 06/29/2025 5:20 PM EDT Result [facility] Naveen Mercedes MD, MSc LAB BLOOD ORDERABLES Final Result Performing Organization Address [facility] Co de Phone Number [address] [address] * Tissue transglutaminase IgA (06/29/2025 5:15 PM EDT) ANTI TTG IGA AB <1.23 0.00 - 3.99 U/mL [facility] Comment:Negative 06/29/2025 5:15 PM EDT 06/29/2025 5:20 PM EDT Result [facility] Naveen Mercedes MD, MSc LAB BLOOD BKR ORDERABLES Fi nal Result Performing Organization Address [facility] Co de Phone Number [address] [address] * Hepatitis C antibody, qualitative (10/13/2024 9:40 AM EST) HCV ANTIBODY Negative Negative [facility] Comment:Antibodies to HCV no t detected. Does not exclude the possibility of exposure to HCV. 10/13/2024 9:40 AM EST 10/13/2024 1:40 PM EST Result [facility] Naveen Mercedes MD, MSc LAB BLOOD BKR ORDERABLES Fi nal Result Performing Organization Address [facility] Co de Phone Number [address] [address] from Last 3 Months or Most Recently Relevant to Health Maintenance Insurance [employer] [place] [address] [place] [address] [place] [address] [place] [address] [place] [address] [place] [address] [place] [address] [place] [address] ACO Care Teams Dining Room Busser Relationship Specialty Start Date End Date Richy Stearns NP [address] [facility] [place] [address] PCP - General Nurse Practitioner 09/01/24 Additional Source Comments The information contained in this document represents components of the legal health record. It is not the complete legal health record.[facility]
--- OUTSIDE RECORDS SUMMARY | 2025-09-06 14:41 | XMS_ITS | Encounter Summary ---
Author Organization [facility] Address [address] [facility] [address] [place] [address] Phone Care Team Providers Care Fruit Farmer Name Role Phone Richy Stearns TOBACCO SORTER Primary Care Provider + Encounter Details Date Type Department Care Team (Late st Contact Info) Description 12/08/2024 Procedure Pass MRI, [facility] Imaging - [address], [address] [place] [phone] Social History Tobacco Use Types Packs/Day Years [...] on filedocumented in this encounter Care Teams Fruit Farmer Relationship Specialty Start Date End Date Richy Stearns NP [address] [facility] [address] [place] [phone] PCP - General Nurse Practitioner 09/01/24 documented as of this encounter Additional Source Comments The information contained in this document represents components of the legal health record. It is not the complete legal health record.[facility]
== END 2025-09-06 13:43 | disposition home or self-care (01) ==
LOC: HO.HPODS 12:57
PROVIDERS: PCP Nurse Practitioner Family; Visit Provider Student in an Organized Health Care Education/Training Program
DX: M21.70 Unequal limb length (acquired), unspecified site (principal); R20.0 Anesthesia of skin; R20.2 Paresthesia of skin; Q66.71 Congenital pes cavus, right foot; Q66.72 Congenital pes cavus, left foot; M20.41 Other hammer toe(s) (acquired), right foot; M20.42 Other hammer toe(s) (acquired), left foot; L84 Corns and callosities
CPT/HCPCS: 99204

== ENCOUNTER → 2025-09-06 12:56 | Outpatient (BNVA) | payer OTHER, SELFPAY | PROVIDERS: PCP Nurse Practitioner Family; Visit Provider Student in an Organized Health Care Education/Training Program | DX: R20.2 Paresthesia of skin (principal); R20.0 Anesthesia of skin; Q66.71 Congenital pes cavus, right foot; Q66.72 Congenital pes cavus, left foot; L84 Corns and callosities | CPT/HCPCS: 99202 ==

== ENCOUNTER 2025-09-10 08:19 | Outpatient (REF) | payer OTHER, SELFPAY ==
--- OUTSIDE RECORDS SUMMARY | 2025-09-16 08:20 | XMS_ITS | Encounter Summary ---
Author Organization [facility] Address [address] [facility] [address] [place] [address] Phone Care Team Providers Care Assistant Boiler Operator Name Role Phone Richy Stearns CEO AND CO FOUNDER Primary Care Provider + Encounter Details Date Type Department Care Team (Late st Contact Info) Description 10/13/2024 Procedure Pass MRI, [facility] Imaging - [address], [address] [place] [phone] Social History Tobacco Use Types Packs/Day Years [...] on filedocumented in this encounter Care Teams Assistant Boiler Operator Relationship Specialty Start Date End Date Richy Stearns NP [address] [facility] [address] [facility] [address] [place] [phone] PCP - General Nurse Practitioner 09/01/24 documented as of this encounter Additional Source Comments The information contained in this document represents components of the legal health record. It is not the complete legal health record.[facility]
--- OUTSIDE RECORDS SUMMARY | 2025-09-16 08:20 | XMS_ITS | Encounter Summary ---
Author Organization [facility] Address [address] [facility] [address] [place] [address] Phone Care Team Providers Care Dirt Contractor Name Role Phone Richy Stearns VEHICLE SERVICE AGENT Primary Care Provider + Encounter Details Date Type Department Care Team (Late st Contact Info) Description 10/13/2024 Procedure Pass MRI, [facility] Imaging - [address], [address] [place] [phone] Social History Tobacco Use Types Packs/Day Years [...] on filedocumented in this encounter Care Teams Dirt Contractor Relationship Specialty Start Date End Date Richy Stearns NP [address] [facility] [address] [place] [phone] PCP - General Nurse Practitioner 09/01/24 documented as of this encounter Additional Source Comments The information contained in this document represents components of the legal health record. It is not the complete legal health record.[facility]
--- OUTSIDE RECORDS SUMMARY | 2025-09-16 08:21 | XMS_ITS | Clinical Summary ---
Author Organization [facility] Address [address] [place] [address] Phone Care Team Providers Care Milk Wagon Driver Name Role Phone Richy Stearns TICKET WRITER Primary Care Provider + Allergies No known [...] Description 07/20/2025 1:00 PM EDT Office Visit [facility] Small Fiber Neuropathy Clinic [address] [facility] [facility], 8th [address], [address] [place] [address] Samantha Pastor CNP, DNP Small fiber neuropathy (Primary Dx) 06/29/2025 4:24 PM EDT - 06/29/2025 11:59 PM EDT Hospital Encounter [facility] [place] [address] Naveen Mercedes MD, MSc Discharge Disposition: Home or Self Care 06/29/2025 4:00 PM EDT Office Visit [facility] Neurology Neuromuscular [address], [address] [place] [address] Naveen Mercedes MD, MSc Large fiber neuropathy [...] Procedure Name Priority Date/Time Associated Diagnosis Comments [place] GENERIC ORDER, REFRIGERATE Routine 07/20/2025 1:15 PM [...] Recently Relevant to Health Maintenance Results * [place] GENERIC ORDER, REFRIGERATE (07/20/2025 1:15 PM EDT) [place] Order ID [id number] [facility] Generic Order Result, Refrigerate SEE NOTE 08/03/20 01:06 PM [facility] DPT OF LAB MED AND PAT+ Comment: [...] developed and its performance characteristics determined by [facility] in a manner consistent with CLIA requirements. This test has not been cleared or approved by the U.S. Food and Drug Administration. 07/20/2025 1:15 PM EDT 07/21/2025 8:10 AM EDT us Samantha Pastor LABORER AIRPORT MAINTENANCE, DNP LAB BLOOD BKR ORDERABLES Final Result [facility] DPT OF LAB MED AND PAT+ [address] [place], [place] [id number] [place] [address] * Celiac Screening Test Panel (06/29/2025 5:15 PM EDT) IgA 183 69 - 309 mg/dL [facility] CELIAC INTERPRETATION Serologic markers for celiac disease are useful in: [facility] Comment: 1. Supporting the diagnosis of [...] PM EDT 06/29/2025 5:20 PM EDT Result [facility] Naveen Mercedes MD, MSc LAB BLOOD ORDERABLES Final Result Performing Organization Address City/[facility]/ZIP Co de Phone Number [address] [address] * ANTI GLIADIN IGA ANTIBODY (06/29/2025 5:15 PM EDT) Deamidated Gliadin Antibody IGA 3.41 0 - 19 CU [facility] Comment:Negative 06/29/2025 5:15 PM EDT 06/29/2025 5:20 PM EDT Result [facility] Naveen Mercedes MD, MSc LAB BLOOD ORDERABLES Final Result Performing Organization Address [facility] Co de Phone Number [address] [address] * Tissue transglutaminase IgA (06/29/2025 5:15 PM EDT) ANTI TTG IGA AB <1.23 0.00 - 3.99 U/mL [facility] Comment:Negative 06/29/2025 5:15 PM EDT 06/29/2025 5:20 PM EDT Result [facility] Naveen Mercedes MD, MSc LAB BLOOD BKR ORDERABLES Fi nal Result Performing Organization Address [facility] Co de Phone Number [address] [address] * Hepatitis C antibody, qualitative (10/13/2024 9:40 AM EST) HCV ANTIBODY Negative Negative [facility] Comment:Antibodies to HCV no t detected. Does not exclude the possibility of exposure to HCV. 10/13/2024 9:40 AM EST 10/13/2024 1:40 PM EST Result [facility] Naveen Mercedes MD, MSc LAB BLOOD BKR ORDERABLES Fi nal Result Performing Organization Address City/[facility] Co de Phone Number [address] [address] from Last 3 Months or Most Recently Relevant to Health Maintenance [place] [address] [place] [address] [place] [address] [place] [address] [place] [address] [place] [address] [place] [address] [place] [address] [place] [address] [place] [address] [place] [address] [place] [address] ACO Care Teams Milk Wagon Driver Relationship Specialty Start Date End Date Richy Stearns NP [address] [place] [id number] PCP - General Nurse Practitioner 11/6/24 Additional Source Comments The information contained in this document represents components of the legal health record. It is not the complete legal health record.[facility]
--- OUTSIDE RECORDS SUMMARY | 2025-09-16 08:21 | XMS_ITS | Encounter Summary ---
Author Organization [facility] Address [address] [facility] [address] [place] [address] Phone Care Team Providers Care Compliance Vice President Name Role Phone Richy Stearns WEB SOFTWARE ENGINEER Primary Care Provider + Encounter Details Date Type Department Care Team (Late st Contact Info) Description 12/08/2024 Procedure Pass MRI, [facility] Imaging - [address], [address] [place] [phone] Social History Tobacco Use Types Packs/Day Years [...] on filedocumented in this encounter Care Teams Compliance Vice President Relationship Specialty Start Date End Date Richy Stearns NP [address] [facility] [address] [facility] [address] [place] [phone] PCP - General Nurse Practitioner 09/01/24 documented as of this encounter Additional Source Comments The information contained in this document represents components of the legal health record. It is not the complete legal health record.[facility]
--- OUTSIDE RECORDS SUMMARY | 2025-09-16 08:21 | XMS_ITS | Encounter Summary ---
Author Organization [facility] Address [address] [facility] [address] [place] [phone] Phone Care Team Providers Care Ambulance Driver Name Role Phone Richy Stearns FUNERAL ARRANGER Primary Care Provider + Encounter Details Date Type Department Care Team (Late st Contact Info) Description 12/08/2024 Procedure Pass MRI, [facility] Imaging - [address], [address] [place] [phone] Social History Tobacco Use Types Packs/Day Years [...] on filedocumented in this encounter Care Teams Ambulance Driver Relationship Specialty Start Date End Date Richy Stearns NP [address] [place] [phone] PCP - General Nurse Practitioner 09/01/24 documented as of this encounter Additional Source Comments The information contained in this document represents components of the legal health record. It is not the complete legal health record.[facility]
[2025-09-16 08:32] LABS: FIT1 NEGATIVE (NEGATIVE)
[2025-09-16 08:33] LABS: FIT Date 2 11/15/25; FIT Int Ctl YES; FIT2 NEGATIVE (NEGATIVE)
== END 2025-09-10 08:20 | disposition home or self-care (01) ==
LOC: HO.LNP 08:19
PROVIDERS: Visit Provider Nurse Practitioner Family
DX: R19.5 Other fecal abnormalities (principal)
CPT/HCPCS: 82274

== ENCOUNTER 2025-09-23 06:37 | Outpatient (REF) | payer OTHER, SELFPAY ==
--- OUTSIDE RECORDS SUMMARY | 2025-09-23 06:40 | XMS_ITS | Encounter Summary ---
Author Organization [facility] Address [address] [facility] [address] [place] [address] Phone Care Team Providers Care Hot Saw Helper Name Role Phone Richy Stearns COBOL ENGINEER Primary Care Provider + Encounter Details Date Type Department Care Team (Late st Contact Info) Description 10/13/2024 Procedure Pass MRI, [facility] Imaging - [address], [address] [place] [phone] Social History Tobacco Use Types Packs/Day Years [...] on filedocumented in this encounter Care Teams Hot Saw Helper Relationship Specialty Start Date End Date Richy Stearns NP [address] [place] [phone] PCP - General Nurse Practitioner 09/01/24 documented as of this encounter Additional Source Comments The information contained in this document represents components of the legal health record. It is not the complete legal health record.[facility]
--- OUTSIDE RECORDS SUMMARY | 2025-09-23 06:40 | XMS_ITS | Encounter Summary ---
Author Organization [facility] Address [address] [facility] [address] [place] [address] Phone Care Team Providers Care Client Server Developer Name Role Phone Richy Stearns WASTE SALVAGER Primary Care Provider + Encounter Details Date Type Department Care Team (Late st Contact Info) Description 12/08/2024 Procedure Pass MRI, [facility] - [address], [address] [place] [phone] Social History Tobacco Use Types Packs/Day Years [...] on filedocumented in this encounter Care Teams Client Server Developer Relationship Specialty Start Date End Date Richy Stearns NP [address] [address] [facility] [address] [place] [id number] PCP - General Nurse Practitioner 09/01/24 documented as of this encounter Additional Source Comments The information contained in this document represents components of the legal health record. It is not the complete legal health record.[facility]
--- OUTSIDE RECORDS SUMMARY | 2025-09-23 06:40 | XMS_ITS | Clinical Summary ---
Author Organization [facility] Address [address] [place] [address] Phone Care Team Providers Care Manager Continuous Improvement Name Role Phone Richy Stearns RAILROAD SIGNAL AND SWITCH OPERATOR Primary Care Provider + Allergies No known [...] Description 07/20/2025 1:00 PM EDT Office Visit [facility] [address] [facility], 8th Floor, [address] [place] [address] Samantha Pastor CNP, DNP Small fiber neuropathy (Primary Dx) 06/29/2025 4:24 PM EDT - 06/29/2025 11:59 PM EDT Hospital Encounter [facility] [place] [address] Naveen Mercedes MD, MSc Discharge Disposition: Home or Self Care 06/29/2025 4:00 PM EDT Office Visit [facility] Neurology Neuromuscular [address], [address] [place] [address] Naveen Mercedes MD, MSc Large fiber neuropathy [...] Procedure Name Priority Date/Time Associated Diagnosis Comments [place] GENERIC ORDER, REFRIGERATE Routine 07/20/2025 1:15 PM [...] Recently Relevant to Health Maintenance Results * [place] GENERIC ORDER, REFRIGERATE (07/20/2025 1:15 PM EDT) [place] Order ID [id number] [facility] Generic Order Result, Refrigerate SEE NOTE 08/03/20 01:06 PM [facility] DPT OF LAB MED AND PAT+ [...] 07/21/2025 8:10 AM EDT us Samantha Pastor CAR REPAIRMAN, DNP LAB BLOOD BKR ORDERABLES Final Result [facility] DPT OF LAB MED AND PAT+ [address] [place], [place] [id number] [place] [address] * Celiac Screening Test Panel (06/29/2025 5:15 PM EDT) IgA 183 69 - 309 mg/dL [facility] CELIAC INTERPRETATION Serologic markers for celiac disease are useful in: [facility] Comment: 1. Supporting the diagnosis of [...] PM EDT 06/29/2025 5:20 PM EDT Result [facility] Naveen Mercedes MD, MSc LAB BLOOD ORDERABLES Final Result Performing Organization Address City/[facility]/ZIP Co de Phone Number [address] [address] * ANTI GLIADIN IGA ANTIBODY (06/29/2025 5:15 PM EDT) Deamidated Gliadin Antibody IGA 3.41 0 - 19 CU [facility] Comment:Negative 06/29/2025 5:15 PM EDT 06/29/2025 5:20 PM EDT Result [facility] Naveen Mercedes MD, MSc LAB BLOOD ORDERABLES Final Result Performing Organization Address [facility] Co de Phone Number [address] [address] * Tissue transglutaminase IgA (06/29/2025 5:15 PM EDT) ANTI TTG IGA AB <1.23 0.00 - 3.99 U/mL [facility] Comment:Negative 06/29/2025 5:15 PM EDT 06/29/2025 5:20 PM EDT Result [facility] Naveen Mercedes MD, MSc LAB BLOOD BKR ORDERABLES Fi nal Result Performing Organization Address [facility] Co de Phone Number [address] [address] * Hepatitis C antibody, qualitative (10/13/2024 9:40 AM EST) HCV ANTIBODY Negative Negative [facility] Comment:Antibodies to HCV no t detected. Does not exclude the possibility of exposure to HCV. 10/13/2024 9:40 AM EST 10/13/2024 1:40 PM EST Result [facility] Naveen Mercedes MD, MSc LAB BLOOD BKR ORDERABLES Fi nal Result Performing Organization Address City/[facility] Co de Phone Number [address] [address] from Last 3 Months or Most Recently Relevant to Health Maintenance [place] [place] [address] [place] [place] [address] [place] [place] [address] [place] [address] [place] [place] [address] [place] [place] [address] ACO Care Teams Manager Continuous Improvement Relationship Specialty Start Date End Date Richy Stearns NP [address] [place] [address] PCP - General Nurse Practitioner 11/6/24 Additional Source Comments The information contained in this document represents components of the legal health record. It is not the complete legal health record.[facility]
--- OUTSIDE RECORDS SUMMARY | 2025-09-23 06:40 | XMS_ITS | Encounter Summary ---
Author Organization [facility] Address [address] [facility] [address] [place] [address] Phone Care Team Providers Care Child Nutrition Assistant Name Role Phone Richy Stearns INTERNAL MEDICINE SPECIALIST Primary Care Provider + Encounter Details Date Type Department Care Team (Late st Contact Info) Description 12/08/2024 Procedure Pass MRI, [facility] - [address], [address] [place] [phone] Social History Tobacco Use Types Packs/Day Years [...] on filedocumented in this encounter Care Teams Child Nutrition Assistant Relationship Specialty Start Date End Date Richy Stearns NP [address] [facility] [address] [place] [phone] PCP - General Nurse Practitioner 09/01/24 documented as of this encounter Additional Source Comments The information contained in this document represents components of the legal health record. It is not the complete legal health record.[facility]
--- OUTSIDE RECORDS SUMMARY | 2025-09-23 06:40 | XMS_ITS | Encounter Summary ---
Author Organization [facility] Address [address] [facility] [address] [place] [address] Phone Care Team Providers Care Machine Stonecutter Name Role Phone Richy Stearns HOOKER LASTER Primary Care Provider + Encounter Details Date Type Department Care Team (Late st Contact Info) Description 10/13/2024 Procedure Pass MRI, [facility] - [address], [address] [place] [phone] Social History Tobacco Use Types Packs/Day Years [...] on filedocumented in this encounter Care Teams Machine Stonecutter Relationship Specialty Start Date End Date Richy Stearns NP [address] [facility] [facility] [address] [place] [phone] PCP - General Nurse Practitioner 09/01/24 documented as of this encounter Additional Source Comments The information contained in this document represents components of the legal health record. It is not the complete legal health record.[facility]
[2025-09-23 06:59] LABS: MANUAL DIFF FLAG NO
[2025-09-23 07:19] LABS: Hematocrit 48.4 % (42.0-52.0); Hemoglobin 16.3 g/dl (14.0-18.0); Imm Gran Abs Auto 0.02 X10*3/uL (0.00-0.03); Imm Gran Pct Auto 0.3 % (0.0-0.4); Lymphocytes Absolute Auto 1.7 X10*3/uL (1.2-4.9); Mean Corpuscular HGB Conc 33.7 g/dl (31.0-36.0); Mean Corpuscular Hemoglobin 30.9 pg (27.0-33.0); Mean Corpuscular Volume 91.8 fL (80.0-98.0); NRBC Abs Auto 0.000 X10*3/uL (0.0-0.012); NRBC Pct Auto 0.0 /100WBC (0.0-0.2); Platelet Count 257 X10*3/uL (160-400); Red Blood Count 5.27 X10*6/uL (4.60-5.80); White Blood Count 6.2 X10*3/uL (4.8-10.8)
[2025-09-23 07:33] LABS: Appearance Urine Clear; Glucose Urine UA Negative (Negative); PH 6.0 (5.0-9.0); Specific Gravity - Urine 1.010 (1.005-1.025)
[2025-09-23 07:50] LABS: Alanine Aminotransferase 40 U/L (0-40); Albumin Level 4.7 g/dL (3.5-5.0); Alkaline Phosphatase 54 U/L (39-117); Anion Gap 9 (12-20); Aspartate Amino Transferase 32 U/L (5-37); Blood Urea Nitrogen 19 mg/dL (9-16); Calcium 9.3 mg/dL (8.4-10.2); Carbon Dioxide 27 mmol/L (22-29); Chloride 106 mmol/L (96-108); Cholesterol 198 mg/dL (<200); Estimated Glomerular Filt Rate > 60; HDL Cholesterol 51 mg/dL (>40); Potassium 4.4 mmol/L (3.3-5.1); Sodium 138 mmol/L (135-145); Total Protein 6.9 g/dL (6.5-8.0); Triglycerides 60 mg/dL (<150)
[2025-09-23 09:00] LABS: CDiff Gene PCR NEGATIVE (Negative)
[2025-09-23 09:50] LABS: E. coli EAEC Not Detected (Not Detect.); E. coli EPEC Not Detected (Not Detect.); E. coli ETEC Not Detected (Not Detect.); E. coli STEC Not Detected (Not Detect.); Shigella sp./EIEC Not Detected (Not Detect.)
[2025-09-26 19:29] LABS: Class Almond 0; Class Brazil Nut 0; Class Cashew 0; Class Codfish 0; Class Cow's Milk 0; Class Egg white 0; Class Hazelnut 0; Class Macadamia Nut 0; Class Peanut 0; Class Salmon 0; Class Scallop 0; Class Sesame Seed 0; Class Shrimp 0; Class Soybean 0; Class Tuna 0; Class Walnut 0; Class Wheat 0; F345-IgE Macadmia Nut <0.10 kU/L
== END 2025-09-23 06:38 | disposition home or self-care (01) ==
LOC: HO.LAB 06:37
PROVIDERS: Nurse Practitioner Family; Visit Provider Nurse Practitioner Family
DX: Z12.5 Encounter for screening for malignant neoplasm of prostate (principal); R19.5 Other fecal abnormalities; N39.43 Post-void dribbling; F41.8 Other specified anxiety disorders; E55.9 Vitamin D deficiency, unspecified
CPT/HCPCS: 36415; 80053; 80061; 81003; 82306; 84153; 84443; 85025; 86003; 86364; 87177; 87209; 87493; 87507

== ENCOUNTER 2025-09-29 13:30 | Outpatient (REF) | payer OTHER, SELFPAY ==
--- NOTE | ~2025-09-29 | XR_ITS ---
EXAMINATION: XR BONE LENGTH CLINICAL INFORMATION: M21.70 - Unequal limb length (acquired), unspecified site COMPARISON: None available. TECHNIQUE: AP view bilateral lower extremities FINDINGS: Right: 2 cancellous screws placed from a lateral approach traversing the long axis of the shortened right femoral neck. Right femoral head: 112.2 cm Mid medial compartment of the knee 53.7 cm. Talar dome: 6 cm. Left: Right femoral head:114.8 cm Mid medial compartment of the knee 54.2 cm. Talar dome: 6.3 cm. XR/XR bone length study IMPRESSION: Right: Hip to knee: 58.5 cm Knee to ankle: 47.7 Hip to ankle: 106.2 Right: Hip to knee: 60.2 cm Knee to ankle: 47.9 Hip to ankle: 108.1 Electronically signed by: German Reveles MD 09/29/2025 03:01 PM [facility]
--- NOTE | ~2025-09-29 | XR_ITS ---
EXAMINATION: X-ray left foot X-ray right foot CLINICAL INFORMATION: Metatarsalgia COMPARISON: None TECHNIQUE: Left foot 3 views. Right foot 3 views. FINDINGS: Left foot: No acute fracture, dislocation or suspicious bony lesion is identified. Small corticated appearing ossification projected distal to the medial malleolus. No significant arthritic change or erosions. No significant soft tissue swelling. No radiopaque foreign body. Right foot: No acute fracture, dislocation or suspicious bony lesion is identified No significant arthritic change or erosions. No significant soft tissue swelling. No radiopaque foreign body. XR/XR Foot Silvio 3V IMPRESSION: No radiographic evidence of acute osseous findings. Electronically signed by: Heraclio Cancino MD 09/30/2025 09:19 AM [facility]
--- NOTE | ~2025-09-29 | XR_ITS ---
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 There is a small anterior marginal osteophyte involving tibial plafonds. No other deformity is identified. Left: There is small enthesophyte at the Achilles attachment on calcaneus. There is a small anterior marginal osteophyte involving tibial plafonds. No other deformity is identified. XR/XR Calcaneus Silvio min 2V Impression: Small anterior tibial plafond osteophyte, left greater than right. Small enthesophytes at the Achilles insertion on calcaneus, bilateral. Electronically signed by: German Reveles MD 09/29/2025 02:53 PM [facility]
== END 2025-09-29 13:31 | disposition home or self-care (01) ==
LOC: HO.XRAY 13:30
PROVIDERS: PCP Nurse Practitioner Family; Visit Provider Student in an Organized Health Care Education/Training Program
DX: M77.41 Metatarsalgia, right foot (principal); M77.42 Metatarsalgia, left foot; Q66.71 Congenital pes cavus, right foot; Q66.72 Congenital pes cavus, left foot
CPT/HCPCS: 73630; 73650; 77073

== ENCOUNTER → 2025-09-29 13:34 | Outpatient (BNV) | payer OTHER, SELFPAY | PROVIDERS: PCP Nurse Practitioner Family; Visit Provider Radiology Diagnostic Radiology | DX: M21.70 Unequal limb length (acquired), unspecified site (principal); Q66.71 Congenital pes cavus, right foot; M25.771 Osteophyte, right ankle; M77.32 Calcaneal spur, left foot; M77.31 Calcaneal spur, right foot; M25.772 Osteophyte, left ankle | CPT/HCPCS: 73650; 77073 ==

== ENCOUNTER 2025-10-06 12:59 | Outpatient (AMB) | payer OTHER, SELFPAY ==
[2025-10-06 13:14] VITALS: BMI 26.0
--- NOTE | 2025-10-06 13:14 | A.OFFVIS_ITS ---
Vital Signs 10/06/25 13:14 Height 6 ft 6 in Weight 225 lb BMI 26.0 Intake Visit Reasons: fu after x-ray high arches, toe issues Intake Note: Trent is a 44 year old male who presents to the office today for a follow up after x-ray; high arches, toe issues. At last visit Urea cream was prescribed and orders were placed for bone study, Calcaneus and foot x-ray. Results in chart. 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 He has not seen much of a difference since his last visit. Allergies No Known Allergies Allergy (Verified 10/06/25 13:15) HPI HPI fu after x-ray high arches, toe issues: Details: The patient is a 44-year-old male past medical history of lumbar and cervical pain, and bilateral peripheral neuropathy left worse than right. He received his bone length study x-rays. Insurance denied his urea cream so he is planning to purchase the [id number] alternative option. History: The patient reports a limb length discrepancy that occurred after hip surgery at age 11. He has not worn a heel lift in a long time. He believes this further worsened his scoliosis. 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 The patient experiences neuropathy characterized by numbness, tingling, and occasional burning pain, initially presenting with shooting pain upon pressure. He has undergone extensive diagnostic testing, including MRI spine, multiple nerve conduction studies, and left leg nerve biopsy, which revealed spinal stenosis and scoliosis but no severe compression. He was seen at [facility] and received multiple tests, which he states were all noted to be normal. [facility] Medical History (Updated 09/06/25 @ 16:16 by Salty Gonzalez DPM) Loose stools Insect bite Hematemesis Epigastric abdominal pain Foraminal stenosis of lumbar region Degenerative thoracic spinal stenosis Bulging of cervical intervertebral disc Neuropathy, lumbosacral (radicular) Sensory neuropathy Numbness and tingling of left leg Scoliosis Fistula GERD (gastroesophageal reflux disease) Surgical History (Updated 09/02/25 @ 14:11 by Kelly cMlean CNP) History of rectal surgery History of hip surgery Family History (Reviewed 09/02/25 @ 13:21 by Lisandro Busch [facility]) Mother Diabetes type 2, controlled Alzheimer's dementia FH: cholecystectomy Brother FH: cholecystectomy Social History Housing: House Patient Tobacco Use Status: Former Tobacco user Tobacco use type: Cigarette e-Cigarette/Vaping Use: Currently Using Second Hand Smoke Exposure: No Substance Use Type: Marijuana service: No Current occupational status: employed Cognitive needs: No Hearing needs: No Vision needs: No Review of Systems Const All systems reviewed & are unremarkable except as noted in HPI and below Physical Exam Vital Signs: BMI result Body Mass Index 26.0 Extrem Other: *Bilateral Lower Extremity Focused Exam Vascular: DP/PT 2/4, CFT less than 3 seconds all digits, temperature gradient warm to cool. No pedal edema. Derm: Hyperkeratotic lesions plantar aspect of the 1st and 5th metatarsal and heels bilaterally. Hyperkeratotic lesion to the distal aspect of the 2nd digit bilaterally and left 4th digit tuft. Neuro: Negative Tinel sign to the left ankle. MSK: Semi rigid high arch deformity, mild flexion deformity bilateral feet digits 2 and 3, adductovarus deformity of 4th and 5th digits bilaterally. Neutral heel alignment on weight-bearing. Gait pattern is within normal limits. Equal and symmetric strides Results Reviewed Results Reviewed: Ordering Physician: Salty Gonzalez DPM Date of Service: 09/29/25 Procedure(s): XR bone length study IMPRESSION: Right: Hip to knee: 58.5 cm Knee to ankle: 47.7 Hip to ankle: 106.2 Left: Hip to knee: 60.2 cm Knee to ankle: 47.9 Hip to ankle: 108.1 X-ray Read: 09/29/2025 X-ray left foot 3 views (AP, MO, Lateral) reviewed which shows bipartite tibial and fibular sesamoids, met adductus deformity. CI angle 23.83, meary's angle 2 degrees. Moderate tailor's bunion deformity with mild 5th toe adductovarus deformity. I personally reviewed the imaging and my findings are listed above. X-ray Read: 09/29/2025 X-ray right foot 3 views (AP, MO, Lateral) reviewed which shows met adductus deformity. CI angle 20, meary's angle 0 degrees. Right 2nd digit distal phalanx 26 degrees of abduction, moderate tailor's bunion deformity with adductovarus 5th toe. I personally reviewed the imaging and my findings are listed above. X-ray Read: 09/29/2025 X-ray left calc 2 views (Axial, Lateral) reviewed which does not show the tibia in this view however no obvious calcaneal varum noted. Subtalar joint within normal limits. No signs of osseous coalition. I personally reviewed the imaging and my findings are listed above. X-ray Read: 09/29/2025 X-ray right calc 2 views (Axial, Lateral) reviewed which does not show the tibia in this view however no obvious calcaneal varum noted. Subtalar joint within normal limits. No signs of osseous coalition. I personally reviewed the imaging and my findings are listed above. Assessment & Plan Assessment & Plan (1) Lower limb length difference: Code(s): M21.70 - Unequal limb length (acquired), unspecified site Category: Medical Plan: * Limb length discrepancy 1.9 cm right shorter than left. * Recommended heel lift 1.5 cm * The goal is to decrease global compensation by realigning his limb length discrepancy. * Follow up in 6 weeks (2) Numbness and tingling of left leg: Comment: EMG c/w chronic neuropathy ? he is hyperreflexic in LE Code(s): R20.0 - Anesthesia of skin; R20.2 - Paresthesia of skin Category: Medical Plan: * Unclear etiology. The patient states he has had multiple testing including EMG NCV studies. * Given his history of spinal stenosis, he was recommended pursuing treatment with a spine surgeon (3) Cavus deformity of both feet: Code(s): Q66.71 - Congenital pes cavus, right foot; Q66.72 - Congenital pes cavus, left foot Category: Medical Plan: * Educated the patient on their foot type. Explained that their high arch foot type (Cavus feet) can lead to altered weight distribution, resulting in increased pressure on the heel and forefoot. Patients may experience symptoms such as pain, callus formation, tendinitis, instability, lateral ankle sprains, and, in some cases, development of digital deformities (e.g., claw toes or hammertoes). Discussed the importance of shoe type with heel and forefoot padding and support.. (4) Acquired hammertoes of both feet: Code(s): M20.41 - Other hammer toe(s) (acquired), right foot; M20.42 - Other hammer toe(s) (acquired), left foot Category: Medical Plan: * Recommended crest pad * Discussed possible surgical correction in his future if he develops worsening pain symptoms. (5) Callus of heel: Code(s): L84 - Corns and callosities Category: Medical Plan: * Continue topical 40% urea cream Coding Level of Care Code Est Pt Level 3 (39320) Diagnoses Lower limb length difference M21.70 Numbness and tingling of left leg R20.0; R20.2 Cavus deformity of both feet Q66.71; Q66.72 Acquired hammertoes of both feet M20.41; M20.42 Callus of heel L84 Time Spent (min) 30
--- OUTSIDE RECORDS SUMMARY | 2025-10-06 19:30 | XMS_ITS | Encounter Summary ---
Author Organization [facility] Address [address] [facility] [address] [place] [address] Phone Care Team Providers Care Automotive Power Electronics Engineer Name Role Phone Richy Stearns PARTS CHASER Primary Care Provider + Encounter Details Date Type Department Care Team (Late st Contact Info) Description 10/13/2024 Procedure Pass MRI, [facility] - [address], [address] [place] [phone] Social History Tobacco Use Types Packs/Day Years [...] on filedocumented in this encounter Care Teams Automotive Power Electronics Engineer Relationship Specialty Start Date End Date Richy Stearns NP [address] [facility] [address] [place] [phone] PCP - General Nurse Practitioner 09/01/24 documented as of this encounter Additional Source Comments The information contained in this document represents components of the legal health record. It is not the complete legal health record.[facility]
--- OUTSIDE RECORDS SUMMARY | 2025-10-06 19:30 | XMS_ITS | Encounter Summary ---
Author Organization [facility] Address [address] [facility] [address] [place] [address] Phone Care Team Providers Care Body Hanger Name Role Phone Richy Stearns ADJUNCT TRAINER Primary Care Provider + Encounter Details Date Type Department Care Team (Late st Contact Info) Description 10/13/2024 Procedure Pass MRI, [facility] - [address], [address] [place] [phone] Social History Tobacco Use Types Packs/Day Years [...] on filedocumented in this encounter Care Teams Body Hanger Relationship Specialty Start Date End Date Richy Stearns NP [address] [facility] [address] [facility] [address] [place] [phone] PCP - General Nurse Practitioner 09/01/24 documented as of this encounter Additional Source Comments The information contained in this document represents components of the legal health record. It is not the complete legal health record.[facility]
--- OUTSIDE RECORDS SUMMARY | 2025-10-06 19:31 | XMS_ITS | Encounter Summary ---
Author Organization [facility] Address [address] [facility] [address] [place] [address] Phone Care Team Providers Care Manager Baby Name Role Phone Richy Stearns CHAIR CAR DRIVER Primary Care Provider + Encounter Details Date Type Department Care Team (Late st Contact Info) Description 12/08/2024 Procedure Pass MRI, [facility] - [address], [address] [place] [phone] Social History Tobacco Use Types Packs/Day Years [...] on filedocumented in this encounter Care Teams Manager Baby Relationship Specialty Start Date End Date Richy Stearns NP [address] [facility] [address] [place] [phone] PCP - General Nurse Practitioner 09/01/24 documented as of this encounter Additional Source Comments The information contained in this document represents components of the legal health record. It is not the complete legal health record.[facility]
--- OUTSIDE RECORDS SUMMARY | 2025-10-06 19:31 | XMS_ITS | Encounter Summary ---
Author Organization [facility] Address [address] [facility] [address] [place] [address] Phone Care Team Providers Care Molder Helper Name Role Phone Richy Stearns COMMODITY INDUSTRY ANALYST Primary Care Provider + Encounter Details Date Type Department Care Team (Late st Contact Info) Description 12/08/2024 Procedure Pass MRI, [facility] - [address], [address] [place] [phone] Social History Tobacco Use Types Packs/Day Years [...] on filedocumented in this encounter Care Teams Molder Helper Relationship Specialty Start Date End Date Richy Stearns NP [address] [facility] [address] [place] [phone] PCP - General Nurse Practitioner 09/01/24 documented as of this encounter Additional Source Comments The information contained in this document represents components of the legal health record. It is not the complete legal health record.[facility]
--- OUTSIDE RECORDS SUMMARY | 2025-10-06 19:32 | XMS_ITS | Clinical Summary ---
Author Organization [facility] Address [address] [place] [address] Phone Care Team Providers Care Silverware Buffing Machine Operator Name Role Phone Richy Stearns WEB PAGE DEVELOPER Primary Care Provider + Allergies No known [...] Description 07/20/2025 1:00 PM EDT Office Visit [facility] [address] [place] [address], 8th Floor, [address] [place] [address] Samantha Pastor, BRIGETTE, DNP Small fiber neuropathy (Primary Dx) from Last 3 Months Social History Tobacco [...] Procedure Name Priority Date/Time Associated Diagnosis Comments [place] GENERIC ORDER, REFRIGERATE Routine 07/20/2025 1:15 PM EDT HEPATITIS C ANTIBODY, QUALITATIVE Routine 10/13/2024 9:40 AM EST Need for hepatitis C screening test from Last 3 Months or Most Recently Relevant to Health Maintenance Results * [place] GENERIC ORDER, REFRIGERATE (07/20/2025 1:15 PM EDT) [place] Order ID [id number] [facility] Generic Order Result, Refrigerate SEE NOTE 08/03/20 01:06 PM [facility] DPT OF LAB MED AND PAT+ [...] developed and its performance characteristics determined by [facility] in a manner consistent with CLIA requirements. This test has not been cleared or approved by the U.S. Food and Drug Administration. 07/20/2025 1:15 PM EDT 07/21/2025 8:10 AM EDT us Samantha Pastor ELECTRONIC INDUSTRIAL CONTROLS MECHANIC, DNP LAB BLOOD BKR ORDERABLES Final Result [facility] DPT OF LAB MED AND PAT+ [address] [place] [address] [address] * Hepatitis C antibody, qualitative (10/13/2024 9:40 AM EST) HCV ANTIBODY Negative Negative [facility] Comment:Antibodies to HCV no t detected. Does not exclude the possibility of exposure to HCV. 10/13/2024 9:40 AM EST 10/13/2024 1:40 PM EST us Naveen Mercedes MD, MSc LAB BLOOD BKR ORDERABLES Fi nal Result [address] [address] from Last 3 Months or Most Recently Relevant to Health Maintenance [place] [address] [place] [address] [place] [address] [place] [address] [place] [address] [place] [address] ACO [facility] ACO Care Teams Silverware Buffing Machine Operator Relationship Specialty Start Date End Date Richy Stearns NP [address] [facility] [place] [address] PCP - General Nurse Practitioner 09/01/24 Additional Source Comments The information contained in this document represents components of the legal health record. It is not the complete legal health record.[facility]
== END 2025-10-06 13:39 | disposition home or self-care (01) ==
LOC: HO.HPODS 13:00
PROVIDERS: PCP Nurse Practitioner Family; Visit Provider Student in an Organized Health Care Education/Training Program
DX: R20.0 Anesthesia of skin (principal); R20.2 Paresthesia of skin; Q66.71 Congenital pes cavus, right foot; Q66.72 Congenital pes cavus, left foot; L84 Corns and callosities
CPT/HCPCS: 99213

== ENCOUNTER → 2025-10-06 12:59 | Outpatient (BNVA) | payer OTHER, SELFPAY | PROVIDERS: PCP Nurse Practitioner Family; Visit Provider Student in an Organized Health Care Education/Training Program | DX: L84 Corns and callosities (principal); M20.41 Other hammer toe(s) (acquired), right foot; M20.42 Other hammer toe(s) (acquired), left foot; R20.0 Anesthesia of skin; R20.2 Paresthesia of skin; M21.70 Unequal limb length (acquired), unspecified site | CPT/HCPCS: 99212 ==